=== PATIENT | male | born 1955 | race Caucasian/White ===

== ENCOUNTER 2016-04-23 08:31 | Inpatient (IN) | payer MEDICARE, OTHER ==
[~2016-04-23] VITALS: Ht 177.8 cm; Wt 71.7 kg
[~2016-04-23 08:31] MED LIST: ACET-868 GT; ALBU2.5V12 IH; ATOR80TA GT; BENA20TA2 GT; BISA10SU61 RC; CARV25TA GT; CLON0.1T GT; CLON0.5T GT; DEXL60CA3 GT; DOCU-170 GT; HYDR-3326 GT; HYDR100T27 GT; MAGN400O4 GT; MELA3TAB GT; NA P133E RC; ONDA4TAB5 GT; PRAS5TAB3 GT; SACC250C6 GT; TRAZ-144 GT
[2016-04-23] MEDS ORDERED: IV SET PRIMARY 1 EA INFUS.SET MC ONE (08:49)
[2016-04-23] MEDS ORDERED: IV NS 0.9% 500 ML IV ONE (08:49)
[2016-04-23 08:53] LABS: BASOPHILS # (AUTO) 0.1 /CMM (0.0-0.2); BASOPHILS % (AUTO) 0.9 % (0.0-2.0); DIFF TOTAL % 100 %; EOSINOPHILS # (AUTO) 0.1 /CMM (0.0-0.7); EOSINOPHILS % (AUTO) 0.8 % (0.0-6.0); HEMATOCRIT 40 % (39-51); HEMOGLOBIN 13.4 g/dL (13.5-17.5); LYMPHOCYTES # (AUTO) 1.9 /CMM (0.8-4.8); LYMPHOCYTES % (AUTO) 26.8 % (20.0-44.0); MEAN CORPUSCULAR HEMOGLOBIN 30 PG (26.0-33.0); MEAN CORPUSCULAR HGB CONC 34 g/dl (31.0-36.0); MEAN CORPUSCULAR VOLUME 90 fL (80-96); MONOCYTES # (AUTO) 0.7 /CMM (0.1-1.30); MONOCYTES % (AUTO) 9.2 % (2.0-12.0); NEUTROPHILS # (AUTO) 4.5 /CMM (1.8-8.9); NEUTROPHILS % (AUTO) 62.3 % (43.0-81.0); PLATELET COUNT (AUTO) 159 /CMM (150-450); RED BLOOD CELL COUNT(AUTO) 4.42 MIL/uL (4.5-6.0); WHITE BLOOD COUNT (AUTO) 7.2 K/uL (4.3-11.0)
[2016-04-23 09:00] LABS: KETONES,URINE NEGATIVE (NEGATIVE); LEUKOCYTE ESTERASE ,URINE NEGATIVE (NEGATIVE)
[2016-04-23] MEDS ORDERED: IV NS 0.9% 500 ML BAG IV ONE (09:00)
[2016-04-23 09:01] LABS: ADD UA MICROSCOPIC YES
[2016-04-23 09:02] LABS: ANION GAP 12 (5-14); CALCIUM, SERUM 8.6 mg/dL (8.5-10.1); CARBON DIOXIDE 28 mmol/L (21-32); CHLORIDE 104 mmol/L (98-107); CREATININE 1.8 mg/dL (0.6-1.3); GFR 39 mL/min (>60); GLUCOSE 96 mg/dL (74-106); POTASSIUM 4.1 mmol/L (3.5-5.1); SODIUM SERUM 140 mmol/L (136-145); UREA NITROGEN, BLOOD 23 mg/dL (7-18)
[2016-04-23 09:06] LABS: RBC,URINE 0-2 /HPF (0-2); WBC,URINE 0-2 /HPF (0-3)
[2016-04-23 09:08] LABS: ADD URINE CULTURE NO; INR 1.1 (0.87-1.13); MUCUS,URINE Few /LPF (None Seen); PROTHROMBIN TIME 11.9 SECS (9.5-12.7)
[2016-04-23 09:09] LABS: COARSE GRANULAR CASTS,URINE Few /LPF (None Seen); TROPONIN I < 0.017 ng/mL (0.00-0.056)
[2016-04-23 09:13] LABS: LACTIC ACID 1.5 mmol/L (0.4-2.0)
[2016-04-23 09:17] LABS: ALANINE AMINOTRANSFERASE 23 U/L (12-78); ALBUMIN 2.8 g/dL (3.4-5.0); ASPARTATE AMINOTRANSFERASE 18 U/L (15-37); BILIRUBIN,DIRECT 0.1 mg/dL (0.0-0.2); BILIRUBIN,TOTAL 0.4 mg/dL (0.2-1.0); INDIRECT BILIRUBIN 0.3 mg/dL (0.0-1.1)
[2016-04-23 09:18] LABS: THYROID STIMULATING HORMONE 0.423 uIU/mL (0.358-3.74)
[2016-04-23] MEDS ORDERED: CLON1PAT2 TD (10:14)
[2016-04-23] MEDS ORDERED: ACID1TAB12 GT (10:14)
[2016-04-23] MEDS ORDERED: NIFE30TA2 PO (10:14)
[2016-04-23] MEDS ORDERED: NA P133E RC (10:14)
[2016-04-23] MEDS ORDERED: ALEN70TA3 GT (10:14)
[2016-04-23] MEDS ORDERED: ALBU2.5V12 IH (10:14)
[2016-04-23] MEDS ORDERED: CALC-108 GT (10:14)
[2016-04-23] MEDS ORDERED: TRAM50TA2 GT (10:14)
[2016-04-23] MEDS ORDERED: CLOP75TA2 GT (10:14)
[2016-04-23] MEDS ORDERED: BACL10TA GT (10:14)
[2016-04-23] MEDS ORDERED: BISA10SU8 RC (10:14)
[2016-04-23] MEDS ORDERED: AMIN30LI4 GT (10:14)
[2016-04-23] MEDS ORDERED: DOCU50LI GT (10:14)
[2016-04-23] MEDS ORDERED: NUT.237L25 GT (10:14)
[2016-04-23] MEDS ORDERED: ACET-2605 GT (10:14)
[2016-04-23] MEDS ORDERED: ACET160S3 GT (10:14)
[2016-04-23] MEDS ORDERED: MULT-659 GT (10:14)
[2016-04-23] MEDS ORDERED: PANT40TA4 PO (10:14)
[2016-04-23] MEDS ORDERED: SENN8.6T6 GT (10:14)
[2016-04-23] MEDS ORDERED: ATEN50TA GT (10:14)
[2016-04-23] MEDS ORDERED: GEMF600T3 GT (10:14)
[2016-04-23] MEDS ORDERED: CITA20TA19 GT (10:14)
[2016-04-23] MEDS ORDERED: VALP250S14 GT (10:14)
[2016-04-23] MEDS ORDERED: AMLO5TAB2 GT (10:14)
[2016-04-23] MEDS ORDERED: IBUP-1481 GT (10:14)
[2016-04-23 12:30] VITALS: BP 118/68
[2016-04-23] MEDS ORDERED: MISCELLANEOUS MED 1 EA EA GT PRN (12:30)
[2016-04-23] MEDS ORDERED: ALBUTEROL FS 2.5 MG/0.5 ML VIAL.NEB IH PRN (12:30)
[2016-04-23] MEDS ORDERED: BISACODYL SUPP (10 MG) 10 MG/SUPP.RECT SUPP.RECT RC PRN (12:30)
[2016-04-23] MEDS ORDERED: NA PHOS,M-B/NA PHOS,DI-BA 1 EA ENEMA RC PRN (12:30)
[2016-04-23] MEDS ORDERED: ACETAMINOPHEN 650 MG/20.3 ML UDC GT PRN (12:30)
[2016-04-23] MEDS ORDERED: Medication Not On Formulary EA (Melatonin 6 MG) GT PRN (12:30)
[2016-04-23] MEDS ORDERED: Medication Not On Formulary EA (Ondansetron Hcl (Zofran) 4 MG) GT PRN (12:30)
[2016-04-23] MEDS ORDERED: IBUPROFEN 400 MG TABLET GT PRN (12:30)
[2016-04-23] MEDS ORDERED: MAGNESIUM HYDROXIDE 30 ML UDC GT PRN (12:30)
[2016-04-23 12:33] VITALS: BP 148/88
[2016-04-23] MEDS ORDERED: ONDANSETRON HCL/PF 4 MG/2 ML VIAL IVP PRN (13:00)
[2016-04-23] MEDS: VALPROIC ACID 250 MG/5 ML UDC GT SCH ×2 (13:46→22:10)
[2016-04-23] MEDS: PROSOURCE / PROSTAT (PYXIS) 30 ML UDC GT SCH ×3 (13:46→22:18)
[2016-04-23 14:40] VITALS: BP 146/81
[2016-04-23] MEDS ORDERED: IV SET PRIMARY PUMP SET 1 EA INFUS.SET MC ONE (15:27)
[2016-04-23] MEDS: IV NS 0.9% 1,000 ML IV PRN (15:48)
[2016-04-23 16:00] VITALS: BP 143/88
[2016-04-23] MEDS: GEMFIBROZIL 600 MG TABLET GT SCH (18:34)
[2016-04-23] MEDS: DOCUSATE SODIUM LIQ 100 MG/10 ML UDC GT SCH (18:34)
[2016-04-23] MEDS: ACIDOPHILUS/BULGARICUS 1 EACH TAB.CHEW GT SCH (18:34)
[2016-04-23] MEDS: FIBERSOURCE HN 1,000 ML BOTTLE GT PRN (18:34)
[2016-04-23 20:00] VITALS: BP 150/103
[2016-04-23] MEDS ORDERED: PANTOPRAZOLE 40 MG TABLET.DR PO SCH (21:00)
[2016-04-23] MEDS: hydrALAZINE HCL 50 MG TABLET GT SCH (22:10)
[2016-04-23] MEDS: PANTOPRAZOLE 40 MG/PACK PACK GT SCH (22:11)
[2016-04-23] MEDS: ENOXAPARIN SODIUM 40 MG/0.4 ML DISP.SYRIN SQ SCH (22:11)
[2016-04-23] MEDS: BACLOFEN (10 MG) 10 MG TABLET GT SCH (22:12)
[2016-04-23] MEDS: CARVEDILOL 12.5 MG TABLET GT SCH (22:14)
[2016-04-24 00:31] VITALS: BP 158/97
[2016-04-24 05:00] VITALS: BP 167/96
[2016-04-24] MEDS: VALPROIC ACID 250 MG/5 ML UDC GT SCH ×3 (05:00→21:39)
[2016-04-24] MEDS: hydrALAZINE HCL 50 MG TABLET GT SCH ×3 (05:00→21:37)
[2016-04-24 07:09] LABS: BASOPHILS % (AUTO) 0.4 % (0.0-2.0); DIFF TOTAL % 100 %; EOSINOPHILS % (AUTO) 0.7 % (0.0-6.0); HEMATOCRIT 37 % (39-51); HEMOGLOBIN 12.3 g/dL (13.5-17.5); LYMPHOCYTES # (AUTO) 1.8 /CMM (0.8-4.8); LYMPHOCYTES % (AUTO) 29.2 % (20.0-44.0); MEAN CORPUSCULAR HEMOGLOBIN 31 PG (26.0-33.0); MEAN CORPUSCULAR HGB CONC 33 g/dl (31.0-36.0); MEAN CORPUSCULAR VOLUME 92 fL (80-96); MONOCYTES # (AUTO) 0.7 /CMM (0.1-1.30); MONOCYTES % (AUTO) 11.6 % (2.0-12.0); NEUTROPHILS # (AUTO) 3.7 /CMM (1.8-8.9); NEUTROPHILS % (AUTO) 58.1 % (43.0-81.0); PLATELET COUNT (AUTO) 136 /CMM (150-450); RED BLOOD CELL COUNT(AUTO) 4.01 MIL/uL (4.5-6.0); WHITE BLOOD COUNT (AUTO) 6.3 K/uL (4.3-11.0)
[2016-04-24 07:38] LABS: CALCIUM, SERUM 8.3 mg/dL (8.5-10.1); CREATININE 1.6 mg/dL (0.6-1.3); PHOSPHORUS 2.5 mg/dL (2.5-4.9); POTASSIUM 3.7 mmol/L (3.5-5.1)
[2016-04-24 08:00] VITALS: BP 167/96
[2016-04-24] MEDS: BISACODYL SUPP (10 MG) 10 MG/SUPP.RECT SUPP.RECT RC SCH (09:00)
[2016-04-24] MEDS ORDERED: ATENOLOL 50 MG TABLET GT SCH (09:00)
[2016-04-24] MEDS ORDERED: AMLODIPINE BESYLATE 5 MG TABLET GT SCH (09:00)
[2016-04-24] MEDS ORDERED: Z GUARD REMEDY 2 OZ OINT TP PRN (10:00)
[2016-04-24] MEDS ORDERED: BISACODYL SUPP (10 MG) 10 MG/SUPP.RECT SUPP.RECT RC SCH (12:30)
[2016-04-24] MEDS: PROSOURCE / PROSTAT (PYXIS) 30 ML UDC GT SCH ×4 (13:00→21:00)
[2016-04-24 16:00] VITALS: BP 173/98
[2016-04-24] MEDS: DOCUSATE SODIUM LIQ 100 MG/10 ML UDC GT SCH ×2 (17:00→18:24)
[2016-04-24] MEDS: GEMFIBROZIL 600 MG TABLET GT SCH ×2 (17:00→18:19)
[2016-04-24] MEDS: ACIDOPHILUS/BULGARICUS 1 EACH TAB.CHEW GT SCH ×2 (17:00→18:18)
[2016-04-24] MEDS: CLONIDINE HCL 0.2MG/24H PTWK 1 EA PATCH TD SCH (18:15)
[2016-04-24] MEDS: NIFEdipine XL (30MG) 30 MG TAB PO SCH (18:17)
[2016-04-24] MEDS: MULTIVITAMINS W-MINERALS 1 TAB TABLET GT SCH (18:18)
[2016-04-24] MEDS: PANTOPRAZOLE 40 MG/PACK PACK GT SCH ×2 (18:18→21:39)
[2016-04-24] MEDS: CLOPIDOGREL BISULFATE 75 MG TABLET GT SCH (18:18)
[2016-04-24] MEDS: CITALOPRAM HYDROBROMIDE 20 MG TABLET GT SCH (18:18)
[2016-04-24] MEDS: SENNOSIDES 8.6 MG TABLET GT SCH (18:19)
[2016-04-24] MEDS: CARVEDILOL 12.5 MG TABLET GT SCH ×2 (18:20→21:39)
[2016-04-24] MEDS: CALCIUM CARB 250MG /VITAMIN D 1 UDTAB GT SCH (18:24)
[2016-04-24] MEDS: Z GUARD REMEDY 2 OZ OINT TP SCH (18:28)
[2016-04-24 21:30] VITALS: BP 142/86
[2016-04-24] MEDS: BACLOFEN (10 MG) 10 MG TABLET GT SCH (21:38)
[2016-04-24] MEDS: ENOXAPARIN SODIUM 40 MG/0.4 ML DISP.SYRIN SQ SCH (21:41)
[2016-04-25] VITALS: BP 167/99
[2016-04-25] MEDS: hydrALAZINE HCL 50 MG TABLET GT SCH ×3 (04:32→21:52)
[2016-04-25] MEDS: IV NS 0.9% 1,000 ML IV PRN ×2 (04:33→11:57)
[2016-04-25] MEDS: VALPROIC ACID 250 MG/5 ML UDC GT SCH ×3 (04:33→21:54)
[2016-04-25 07:02] LABS: BASOPHILS % (AUTO) 0.2 % (0.0-2.0); DIFF TOTAL % 100 %; EOSINOPHILS % (AUTO) 0.3 % (0.0-6.0); HEMATOCRIT 40 % (39-51); HEMOGLOBIN 13.5 g/dL (13.5-17.5); LYMPHOCYTES # (AUTO) 1.2 /CMM (0.8-4.8); LYMPHOCYTES % (AUTO) 10.8 % (20.0-44.0); MEAN CORPUSCULAR HEMOGLOBIN 31 PG (26.0-33.0); MEAN CORPUSCULAR HGB CONC 34 g/dl (31.0-36.0); MEAN CORPUSCULAR VOLUME 91 fL (80-96); MONOCYTES # (AUTO) 1.1 /CMM (0.1-1.30); MONOCYTES % (AUTO) 9.7 % (2.0-12.0); NEUTROPHILS # (AUTO) 8.6 /CMM (1.8-8.9); PLATELET COUNT (AUTO) 150 /CMM (150-450); RED BLOOD CELL COUNT(AUTO) 4.39 MIL/uL (4.5-6.0); WHITE BLOOD COUNT (AUTO) 10.9 K/uL (4.3-11.0)
[2016-04-25 07:30] LABS: INR 1.38 (0.87-1.13); PROTHROMBIN TIME 14.9 SECS (9.5-12.7)
[2016-04-25 08:09] LABS: IRON, SERUM 31 ug/dl (50-175); PERCENT SATURATION 8 % (14-33); TOTAL IRON BINDING CAPACITY 394 ug/dl (250-450)
[2016-04-25] MEDS: Z GUARD REMEDY 2 OZ OINT TP SCH (09:00)
[2016-04-25] MEDS: PROSOURCE / PROSTAT (PYXIS) 30 ML UDC GT SCH ×3 (09:00→21:56)
[2016-04-25] MEDS ORDERED: ALENDRONATE 70 MG TABLET GT SCH (09:00)
[2016-04-25] MEDS: MULTIVITAMINS W-MINERALS 1 TAB TABLET GT SCH (09:00)
[2016-04-25] MEDS: SENNOSIDES 8.6 MG TABLET GT SCH (09:00)
[2016-04-25] MEDS: PANTOPRAZOLE 40 MG/PACK PACK GT SCH ×2 (09:00→21:50)
[2016-04-25] MEDS: CALCIUM CARB 250MG /VITAMIN D 1 UDTAB GT SCH (09:00)
[2016-04-25] MEDS ORDERED: CLONIDINE HCL 0.2MG/24H PTWK 1 EA PATCH TD SCH (09:00)
[2016-04-25] MEDS: GEMFIBROZIL 600 MG TABLET GT SCH ×2 (09:00→18:00)
[2016-04-25] MEDS: CITALOPRAM HYDROBROMIDE 20 MG TABLET GT SCH (09:00)
[2016-04-25] MEDS: ACIDOPHILUS/BULGARICUS 1 EACH TAB.CHEW GT SCH ×2 (09:00→18:05)
[2016-04-25] MEDS: DOCUSATE SODIUM LIQ 100 MG/10 ML UDC GT SCH ×2 (09:00→18:01)
[2016-04-25] MEDS: CLONIDINE HCL 0.2MG/24H PTWK 1 EA PATCH TD SCH (09:22)
[2016-04-25] MEDS: NIFEdipine XL (30MG) 30 MG TAB PO SCH (09:23)
[2016-04-25] MEDS: CARVEDILOL 12.5 MG TABLET GT SCH ×2 (09:24→21:51)
[2016-04-25] MEDS: CLOPIDOGREL BISULFATE 75 MG TABLET GT SCH (09:25)
[2016-04-25 09:29] VITALS: BP 165/101
[2016-04-25] MEDS ORDERED: hydrALAZINE HCL IV 20 MG VIAL IV PRN (10:00)
[2016-04-25] MEDS ORDERED: ALBUTEROL FS 2.5 MG/3 ML VIAL.NEB NEB PRN (10:00)
[2016-04-25] MEDS ORDERED: IV SET PRIMARY PUMP SET 1 EA INFUS.SET MC ONE (11:45)
[2016-04-25 12:00] VITALS: BP 155/84
[2016-04-25] MEDS ORDERED: DIATR MEGLU/DIATRIZOATE SODIUM 30 ML BOTTLE (GASTROGRAPHIN) ONE (12:34)
[2016-04-25 16:00] VITALS: BP 168/93
[2016-04-25] MEDS ORDERED: FIBERSOURCE HN 1,000 ML BOTTLE GT PRN (17:30)
[2016-04-25] MEDS: CLONIDINE HCL 0.1 MG TABLET GT PRN (17:59)
[2016-04-25] MEDS: ALBUTEROL FS 2.5 MG/0.5 ML VIAL.NEB IH SCH (19:28)
[2016-04-25 20:00] VITALS: BP 142/82
[2016-04-25] MEDS: FIBERSOURCE HN 1,000 ML BOTTLE GT PRN (21:50)
[2016-04-25] MEDS: BACLOFEN (10 MG) 10 MG TABLET GT SCH (21:51)
[2016-04-25] MEDS: ENOXAPARIN SODIUM 40 MG/0.4 ML DISP.SYRIN SQ SCH (21:53)
[2016-04-26] VITALS: BP_SYST 101; BP_SYST 122; BP_DIAS 58; BP_DIAS 72
[2016-04-26] MEDS: ALBUTEROL FS 2.5 MG/0.5 ML VIAL.NEB IH SCH ×4 (00:47→20:10)
[2016-04-26 04:00] VITALS: BP_SYST 125; BP_SYST 132; BP_DIAS 73; BP_DIAS 91
[2016-04-26] MEDS: hydrALAZINE HCL 50 MG TABLET GT SCH ×3 (05:35→20:07)
[2016-04-26] MEDS: IV NS 0.9% 1,000 ML IV PRN ×2 (05:35→19:02)
[2016-04-26] MEDS: VALPROIC ACID 250 MG/5 ML UDC GT SCH ×3 (07:54→20:06)
[2016-04-26] MEDS: DOCUSATE SODIUM LIQ 100 MG/10 ML UDC GT SCH ×2 (07:57→19:10)
[2016-04-26 08:00] VITALS: BP_SYST 117; BP_SYST 128; BP_DIAS 69; BP_DIAS 71
[2016-04-26] MEDS: CLOPIDOGREL BISULFATE 75 MG TABLET GT SCH (08:01)
[2016-04-26] MEDS: MULTIVITAMINS W-MINERALS 1 TAB TABLET GT SCH (08:02)
[2016-04-26] MEDS: PANTOPRAZOLE 40 MG/PACK PACK GT SCH ×2 (08:02→20:08)
[2016-04-26] MEDS: NIFEdipine XL (30MG) 30 MG TAB PO SCH (08:02)
[2016-04-26] MEDS: GEMFIBROZIL 600 MG TABLET GT SCH ×2 (08:02→19:10)
[2016-04-26] MEDS: SENNOSIDES 8.6 MG TABLET GT SCH (08:03)
[2016-04-26] MEDS: CALCIUM CARB 250MG /VITAMIN D 1 UDTAB GT SCH (08:05)
[2016-04-26] MEDS: CITALOPRAM HYDROBROMIDE 20 MG TABLET GT SCH (08:05)
[2016-04-26] MEDS: ACIDOPHILUS/BULGARICUS 1 EACH TAB.CHEW GT SCH ×2 (08:05→19:13)
[2016-04-26] MEDS: CARVEDILOL 12.5 MG TABLET GT SCH ×2 (08:07→20:07)
[2016-04-26] MEDS: PROSOURCE / PROSTAT (PYXIS) 30 ML UDC GT SCH ×4 (08:26→23:32)
[2016-04-26 08:34] LABS: BASOPHILS % (AUTO) 0.3 % (0.0-2.0); DIFF TOTAL % 100 %; HEMATOCRIT 35 % (39-51); HEMOGLOBIN 11.7 g/dL (13.5-17.5); LYMPHOCYTES # (AUTO) 1.5 /CMM (0.8-4.8); LYMPHOCYTES % (AUTO) 9.3 % (20.0-44.0); MEAN CORPUSCULAR HEMOGLOBIN 31 PG (26.0-33.0); MEAN CORPUSCULAR HGB CONC 34 g/dl (31.0-36.0); MEAN CORPUSCULAR VOLUME 90 fL (80-96); MONOCYTES # (AUTO) 1.8 /CMM (0.1-1.30); NEUTROPHILS # (AUTO) 12.8 /CMM (1.8-8.9); NEUTROPHILS % (AUTO) 79.4 % (43.0-81.0); PLATELET COUNT (AUTO) 145 /CMM (150-450); RED BLOOD CELL COUNT(AUTO) 3.83 MIL/uL (4.5-6.0); WHITE BLOOD COUNT (AUTO) 16.1 K/uL (4.3-11.0)
[2016-04-26 09:26] LABS: CALCIUM, SERUM 7.6 mg/dL (8.5-10.1); CREATININE 1.6 mg/dL (0.6-1.3); PHOSPHORUS 1.6 mg/dL (2.5-4.9); POTASSIUM 3.9 mmol/L (3.5-5.1)
[2016-04-26] MEDS ORDERED: CLONIDINE HCL 0.2MG/24H PTWK 1 EA PATCH TD SCH (09:30)
[2016-04-26 12:00] VITALS: BP 123/75
[2016-04-26] MEDS: Z GUARD REMEDY 2 OZ OINT TP SCH (13:29)
[2016-04-26] MEDS ORDERED: NEUTRA PHOS 1 POWD.PACKET PO ONE (15:30)
[2016-04-26 16:00] VITALS: BP 157/85
[2016-04-26 20:00] VITALS: BP 136/76
[2016-04-26] MEDS: FIBERSOURCE HN 1,000 ML BOTTLE GT PRN (20:06)
[2016-04-26] MEDS: TRAMADOL HCL 50 MG TABLET GT PRN (20:07)
[2016-04-26] MEDS: ENOXAPARIN SODIUM 40 MG/0.4 ML DISP.SYRIN SQ SCH (20:09)
[2016-04-26] MEDS: BACLOFEN (10 MG) 10 MG TABLET GT SCH (23:32)
[2016-04-27] VITALS (9 sets, daily range): BP systolic 110–154; BP diastolic 62–85
[2016-04-27] MEDS: ALBUTEROL FS 2.5 MG/0.5 ML VIAL.NEB IH SCH ×4 (01:31→20:10)
[2016-04-27] MEDS: VALPROIC ACID 250 MG/5 ML UDC GT SCH ×3 (04:56→19:55)
[2016-04-27] MEDS: hydrALAZINE HCL 50 MG TABLET GT SCH ×3 (04:57→19:56)
[2016-04-27] MEDS: BISACODYL SUPP (10 MG) 10 MG/SUPP.RECT SUPP.RECT RC SCH (09:00)
[2016-04-27] MEDS: IV NS 0.9% 1,000 ML IV PRN (09:10)
[2016-04-27] MEDS: CALCIUM CARB 250MG /VITAMIN D 1 UDTAB GT SCH (09:10)
[2016-04-27] MEDS: PROSOURCE / PROSTAT (PYXIS) 30 ML UDC GT SCH ×4 (09:10→19:56)
[2016-04-27] MEDS: NIFEdipine XL (30MG) 30 MG TAB PO SCH (09:13)
[2016-04-27] MEDS: DOCUSATE SODIUM LIQ 100 MG/10 ML UDC GT SCH ×2 (09:13→16:32)
[2016-04-27] MEDS: CLOPIDOGREL BISULFATE 75 MG TABLET GT SCH (09:14)
[2016-04-27] MEDS: SENNOSIDES 8.6 MG TABLET GT SCH (09:14)
[2016-04-27] MEDS: GEMFIBROZIL 600 MG TABLET GT SCH ×2 (09:14→16:32)
[2016-04-27] MEDS: CARVEDILOL 12.5 MG TABLET GT SCH ×2 (09:14→19:56)
[2016-04-27] MEDS: CITALOPRAM HYDROBROMIDE 20 MG TABLET GT SCH (09:14)
[2016-04-27] MEDS: PANTOPRAZOLE 40 MG/PACK PACK GT SCH ×2 (09:14→19:56)
[2016-04-27] MEDS: MULTIVITAMINS W-MINERALS 1 TAB TABLET GT SCH (09:14)
[2016-04-27] MEDS: Z GUARD REMEDY 2 OZ OINT TP SCH (09:15)
[2016-04-27] MEDS: ACIDOPHILUS/BULGARICUS 1 EACH TAB.CHEW GT SCH ×2 (09:21→16:32)
[2016-04-27 18:04] LABS: ADD UA MICROSCOPIC NO; KETONES,URINE NEGATIVE (NEGATIVE); LEUKOCYTE ESTERASE ,URINE NEGATIVE (NEGATIVE)
[2016-04-27 18:19] LABS: BASOPHILS % (AUTO) 0.2 % (0.0-2.0); DIFF TOTAL % 100 %; EOSINOPHILS % (AUTO) 0.3 % (0.0-6.0); HEMATOCRIT 35 % (39-51); HEMOGLOBIN 11.7 g/dL (13.5-17.5); LYMPHOCYTES # (AUTO) 1.4 /CMM (0.8-4.8); LYMPHOCYTES % (AUTO) 12.2 % (20.0-44.0); MEAN CORPUSCULAR HEMOGLOBIN 31 PG (26.0-33.0); MEAN CORPUSCULAR HGB CONC 33 g/dl (31.0-36.0); MEAN CORPUSCULAR VOLUME 92 fL (80-96); MONOCYTES # (AUTO) 0.8 /CMM (0.1-1.30); MONOCYTES % (AUTO) 6.7 % (2.0-12.0); NEUTROPHILS # (AUTO) 9.4 /CMM (1.8-8.9); NEUTROPHILS % (AUTO) 80.6 % (43.0-81.0); PLATELET COUNT (AUTO) 155 /CMM (150-450); RED BLOOD CELL COUNT(AUTO) 3.84 MIL/uL (4.5-6.0); WHITE BLOOD COUNT (AUTO) 11.7 K/uL (4.3-11.0)
[2016-04-27 18:32] LABS: CALCIUM, SERUM 8.1 mg/dL (8.5-10.1); CREATININE 1.3 mg/dL (0.6-1.3); POTASSIUM 3.6 mmol/L (3.5-5.1)
[2016-04-27] MEDS: ENOXAPARIN SODIUM 40 MG/0.4 ML DISP.SYRIN SQ SCH (20:07)
[2016-04-27] MEDS: BACLOFEN (10 MG) 10 MG TABLET GT SCH (23:07)
[2016-04-28] VITALS: BP 120/72
[2016-04-28] MEDS: ALBUTEROL FS 2.5 MG/0.5 ML VIAL.NEB IH SCH ×3 (01:08→13:42)
[2016-04-28] MEDS ORDERED: IV SET PRIMARY PUMP SET 1 EA INFUS.SET MC ONE (01:45)
[2016-04-28] MEDS: IV NS 0.9% 1,000 ML IV PRN (01:51)
[2016-04-28 04:00] VITALS: BP 162/94
[2016-04-28] MEDS: VALPROIC ACID 250 MG/5 ML UDC GT SCH ×2 (04:15→12:47)
[2016-04-28] MEDS: hydrALAZINE HCL 50 MG TABLET GT SCH ×2 (04:15→12:47)
[2016-04-28] MEDS: TRAMADOL HCL 50 MG TABLET GT PRN (04:16)
[2016-04-28 06:56] LABS: DIFF TOTAL % 100 %; EOSINOPHILS % (AUTO) 0.4 % (0.0-6.0); HEMATOCRIT 35 % (39-51); HEMOGLOBIN 11.9 g/dL (13.5-17.5); LYMPHOCYTES # (AUTO) 1.4 /CMM (0.8-4.8); LYMPHOCYTES % (AUTO) 17.5 % (20.0-44.0); MEAN CORPUSCULAR HEMOGLOBIN 31 PG (26.0-33.0); MEAN CORPUSCULAR HGB CONC 34 g/dl (31.0-36.0); MEAN CORPUSCULAR VOLUME 91 fL (80-96); MONOCYTES # (AUTO) 0.8 /CMM (0.1-1.30); MONOCYTES % (AUTO) 10.6 % (2.0-12.0); NEUTROPHILS # (AUTO) 5.6 /CMM (1.8-8.9); NEUTROPHILS % (AUTO) 71.5 % (43.0-81.0); PLATELET COUNT (AUTO) 134 /CMM (150-450); RED BLOOD CELL COUNT(AUTO) 3.87 MIL/uL (4.5-6.0); WHITE BLOOD COUNT (AUTO) 7.9 K/uL (4.3-11.0)
[2016-04-28 07:06] LABS: CREATININE 1.3 mg/dL (0.6-1.3); POTASSIUM 3.4 mmol/L (3.5-5.1)
[2016-04-28 08:00] VITALS: BP 145/85
[2016-04-28 08:10] VITALS: BP 145/85
[2016-04-28] MEDS: DOCUSATE SODIUM LIQ 100 MG/10 ML UDC GT SCH (08:35)
[2016-04-28] MEDS: SENNOSIDES 8.6 MG TABLET GT SCH (08:35)
[2016-04-28] MEDS: CALCIUM CARB 250MG /VITAMIN D 1 UDTAB GT SCH (08:35)
[2016-04-28] MEDS: CLOPIDOGREL BISULFATE 75 MG TABLET GT SCH (08:35)
[2016-04-28] MEDS: CARVEDILOL 12.5 MG TABLET GT SCH (08:36)
[2016-04-28] MEDS: MULTIVITAMINS W-MINERALS 1 TAB TABLET GT SCH (08:36)
[2016-04-28] MEDS: PANTOPRAZOLE 40 MG/PACK PACK GT SCH (08:36)
[2016-04-28] MEDS: ACIDOPHILUS/BULGARICUS 1 EACH TAB.CHEW GT SCH (08:36)
[2016-04-28] MEDS: NIFEdipine XL (30MG) 30 MG TAB PO SCH (08:36)
[2016-04-28] MEDS: GEMFIBROZIL 600 MG TABLET GT SCH (08:36)
[2016-04-28] MEDS: PROSOURCE / PROSTAT (PYXIS) 30 ML UDC GT SCH ×2 (08:46→12:47)
[2016-04-28] MEDS: CITALOPRAM HYDROBROMIDE 20 MG TABLET GT SCH (08:46)
[2016-04-28] MEDS: Z GUARD REMEDY 2 OZ OINT TP SCH (08:47)
[2016-04-28 12:00] VITALS: BP 123/77
[2016-04-28] MEDS ORDERED: POTASSIUM CHLORIDE 20 MEQ POWDER PACKET PO SCH (13:30)
[2016-04-28] MEDS ORDERED: DIATR MEGLU/DIATRIZOATE SODIUM 30 ML BOTTLE (GASTROGRAPHIN) ONE (14:03)
[2016-04-28 15:17] VITALS: BP 154/94
[2016-04-28] MEDS: CLONIDINE HCL 0.1 MG TABLET GT PRN (15:17)
== END 2016-04-28 16:00 | DRG 100 ==
LOC: ER 08:32 → ICU 11:38 → TELE 15:00 → TELE1 04-25 11:37 → TELE-TD 04-25 12:14 → MEDSG1 04-28 11:42
PROVIDERS: ADMIT Internal Medicine; ATTEND Internal Medicine
PROC: 0D20XUZ Change Feeding Device in Upper Intestinal Tract, External Approach (ICD-10-PCS; principal; 2016-04-25)
DX: G40.909 Epilepsy, unspecified, not intractable, without status epilepticus (principal); N17.0 Acute kidney failure with tubular necrosis; E43 Unspecified severe protein-calorie malnutrition; R53.2 Functional quadriplegia; D68.59 Other primary thrombophilia; E87.0 Hyperosmolality and hypernatremia; I50.32 Chronic diastolic (congestive) heart failure; J98.11 Atelectasis; R13.10 Dysphagia, unspecified; N18.9 Chronic kidney disease, unspecified; E11.22 Type 2 diabetes mellitus with diabetic chronic kidney disease; D72.829 Elevated white blood cell count, unspecified; E86.9 Volume depletion, unspecified; Z86.73 Personal history of transient ischemic attack (TIA), and cerebral infarction without residual deficits; E88.09 Other disorders of plasma-protein metabolism, not elsewhere classified; M62.50 Muscle wasting and atrophy, not elsewhere classified, unspecified site; I11.0 Hypertensive heart disease with heart failure; Z93.1 Gastrostomy status
CPT/HCPCS: 36415; 70450-TC; 71010-TC; 74000-TC; 80048-TC; 80076-TC; 80164-TC; 81000-TC; 82140-TC; 83540-TC; 83605-TC; 83735-TC; 84100-TC; 84443-TC; 84484-TC; 85025-TC; 85610-TC; 85730-TC; 87040-TC; 87081-TC; 87086-TC; 92521; 94799-TC; A4606; J0360; J1650; J7030; J7040; Q9963; Z7610

== ENCOUNTER 2016-06-29 07:07 | Inpatient (IN) | payer MEDICARE, OTHER ==
[~2016-06-29] VITALS: Ht 165.1 cm; Wt 65.8 kg
[~2016-06-29 07:07] MED LIST changes: -ACET-868 GT; +ACET650S26 GT; +ACID1TAB12 GT; -ALBU2.5V12 IH; +ALBU2.5V13 IH; +ALEN70TA3 GT; +AMIN30LI4 GT; +AMLO5TAB2 GT; +ATEN50TA GT; -ATOR80TA GT; +BACL10TA GT; -BENA20TA2 GT; +BISA10SU8 RC; +CALC-108 GT; +CITA20TA19 GT; -CLON0.5T GT; +CLON1PAT2 TD; +CLOP75TA2 GT; -DEXL60CA3 GT; -DOCU-170 GT; +DOCU50LI GT; +GEMF600T3 GT; -HYDR-3326 GT; +MULT-659 GT; +NIFE30TA2 GT; +NUT.237L25 GT; +PANT40TA4 PO; -PRAS5TAB3 GT; -SACC250C6 GT; +SENN8.6T6 GT; +TRAM50TA2 GT; -TRAZ-144 GT; +VALP250S14 GT
[2016-06-29] MEDS ORDERED: IV SET PRIMARY PUMP SET 1 EA INFUS.SET MC ONE (07:25)
[2016-06-29] MEDS ORDERED: IV NS 0.9% 1,000 ML ONE (07:25)
[2016-06-29] MEDS ORDERED: ONDANSETRON HCL/PF 4 MG/2 ML VIAL ONE (07:25)
[2016-06-29] MEDS ORDERED: PANTOPRAZOLE 40 MG VIAL ONE (07:25)
[2016-06-29] MEDS ORDERED: IV NS 0.9% 1,000 ML BAG IV ONE (07:30)
[2016-06-29] MEDS ORDERED: ONDANSETRON HCL/PF 4 MG/2 ML VIAL IVP ONE (07:30)
[2016-06-29] MEDS ORDERED: PANTOPRAZOLE 40 MG VIAL IV ONE ×2 (07:30→10:00)
[2016-06-29 07:50] LABS: BASOPHILS % (AUTO) 0.2 % (0.0-2.0); DIFF TOTAL % 100 %; EOSINOPHILS % (AUTO) 0.3 % (0.0-6.0); HEMATOCRIT 40 % (39-51); HEMOGLOBIN 13.2 g/dL (13.5-17.5); LYMPHOCYTES # (AUTO) 1.7 /CMM (0.8-4.8); LYMPHOCYTES % (AUTO) 20.6 % (20.0-44.0); MEAN CORPUSCULAR HEMOGLOBIN 31 PG (26.0-33.0); MEAN CORPUSCULAR HGB CONC 33 g/dl (31.0-36.0); MEAN CORPUSCULAR VOLUME 92 fL (80-96); MONOCYTES # (AUTO) 0.7 /CMM (0.1-1.30); MONOCYTES % (AUTO) 9.2 % (2.0-12.0); NEUTROPHILS # (AUTO) 5.6 /CMM (1.8-8.9); NEUTROPHILS % (AUTO) 69.7 % (43.0-81.0); PLATELET COUNT (AUTO) 185 /CMM (150-450); RED BLOOD CELL COUNT(AUTO) 4.31 MIL/uL (4.5-6.0); WHITE BLOOD COUNT (AUTO) 8.1 K/uL (4.3-11.0)
[2016-06-29 08:00] LABS: ANION GAP 13 (5-14); CALCIUM, SERUM 8.9 mg/dL (8.5-10.1); CARBON DIOXIDE 28 mmol/L (21-32); CHLORIDE 109 mmol/L (98-107); CREATININE 1.7 mg/dL (0.6-1.3); GFR 42 mL/min (>60); GLUCOSE 102 mg/dL (74-106); POTASSIUM 4.1 mmol/L (3.5-5.1); SODIUM SERUM 146 mmol/L (136-145); UREA NITROGEN, BLOOD 28 mg/dL (7-18)
[2016-06-29 08:04] LABS: ALANINE AMINOTRANSFERASE 17 U/L (12-78); ALBUMIN 3.3 g/dL (3.4-5.0); ASPARTATE AMINOTRANSFERASE 15 U/L (15-37); BILIRUBIN,DIRECT 0.1 mg/dL (0.0-0.2); BILIRUBIN,TOTAL 0.3 mg/dL (0.2-1.0); INDIRECT BILIRUBIN 0.2 mg/dL (0.0-1.1); TOTAL PROTEIN, SERUM 7.6 g/dL (6.4-8.2)
[2016-06-29 08:05] LABS: TROPONIN I < 0.017 ng/mL (0.00-0.056)
[2016-06-29 08:09] LABS: INR 1.07 (0.87-1.13); PROTHROMBIN TIME 11.6 SECS (9.5-12.7)
[2016-06-29] MEDS ORDERED: ZINC220T GT (09:42)
[2016-06-29] MEDS ORDERED: ASCO500T9 GT (09:42)
[2016-06-29] MEDS ORDERED: ZOLP5TAB2 PO (09:42)
[2016-06-29] MEDS ORDERED: SACC250C6 PO (09:42)
[2016-06-29] MEDS ORDERED: hydrALAZINE HCL IV 20 MG VIAL ONE (10:39)
[2016-06-29 11:15] VITALS: BP 146/87
[2016-06-29 12:00] VITALS: BP 140/86
[2016-06-29] MEDS ORDERED: Medication Not On Formulary EA (Ondansetron Hcl (Zofran) 4 MG) GT PRN (14:00)
[2016-06-29] MEDS ORDERED: MAGNESIUM HYDROXIDE 30 ML UDC GT PRN (14:00)
[2016-06-29] MEDS ORDERED: HYDROCODONE/APAP 5/325MG 1 EACH TABLET PO PRN (14:00)
[2016-06-29] MEDS ORDERED: TRAMADOL HCL 50 MG TABLET GT PRN (14:00)
[2016-06-29] MEDS ORDERED: Medication Not On Formulary EA (Melatonin 9 MG) GT PRN (14:00)
[2016-06-29] MEDS ORDERED: Z GUARD REMEDY 2 OZ OINT TP PRN (14:00)
[2016-06-29] MEDS ORDERED: BISACODYL SUPP (10 MG) 10 MG/SUPP.RECT SUPP.RECT RC PRN (14:00)
[2016-06-29] MEDS ORDERED: ONDANSETRON HCL/PF 4 MG/2 ML VIAL IVP PRN (14:00)
[2016-06-29] MEDS ORDERED: NA PHOS,M-B/NA PHOS,DI-BA 1 EA ENEMA RC PRN (14:00)
[2016-06-29] MEDS ORDERED: MAG HYDROX/AL HYDROX/SIMETH 30 ML UDC PO PRN (14:00)
[2016-06-29] MEDS ORDERED: MAGNESIUM HYDROXIDE 30 ML UDC PO PRN (14:00)
[2016-06-29] MEDS ORDERED: ACETAMINOPHEN 650 MG/20.3 ML UDC GT PRN (14:00)
[2016-06-29] MEDS ORDERED: ZOLPIDEM TARTRATE 5 MG TABLET PO SCH (14:00)
[2016-06-29 16:00] VITALS: BP 160/100
[2016-06-29] MEDS ORDERED: ALBUTEROL FS 2.5 MG/3 ML VIAL.NEB NEB PRN (16:30)
[2016-06-29] MEDS: CLONIDINE HCL 0.1 MG TABLET GT PRN (16:57)
[2016-06-29] MEDS: GEMFIBROZIL 600 MG TABLET GT SCH (16:57)
[2016-06-29] MEDS ORDERED: SACCHAROMYCES BOULARDII 250 MG CAPSULE PO SCH (17:00)
[2016-06-29 20:00] VITALS: BP 159/97
[2016-06-29] MEDS ORDERED: RENAL NOVASOURCE 1,000 ML BOTTLE GT PRN (20:00)
[2016-06-29] MEDS: VALPROIC ACID 250 MG/5 ML UDC GT SCH (21:00)
[2016-06-29] MEDS: hydrALAZINE HCL 50 MG TABLET GT SCH (21:00)
[2016-06-29] MEDS: CARVEDILOL 12.5 MG TABLET PO SCH (21:00)
[2016-06-29] MEDS ORDERED: PANTOPRAZOLE 40 MG TABLET.DR PO SCH (21:00)
[2016-06-29] MEDS: PANTOPRAZOLE 40 MG VIAL IV SCH (21:50)
[2016-06-29 22:00] VITALS: BP 159/97
[2016-06-29] MEDS ORDERED: NIFEdipine XL (30MG) 30 MG TAB PO SCH (22:00)
[2016-06-29] MEDS ORDERED: BACLOFEN (10 MG) 10 MG TABLET GT SCH (22:00)
[2016-06-29] MEDS ORDERED: ZOLPIDEM TARTRATE 5 MG TABLET PO PRN (22:00)
[2016-06-30] VITALS: BP 154/81
[2016-06-30 04:00] VITALS: BP 152/86
[2016-06-30] MEDS: VALPROIC ACID 250 MG/5 ML UDC GT SCH ×2 (04:28→14:54)
[2016-06-30] MEDS: hydrALAZINE HCL 50 MG TABLET GT SCH ×2 (04:28→14:56)
[2016-06-30] MEDS: CLONIDINE HCL 0.1 MG TABLET GT PRN (07:13)
[2016-06-30] MEDS: ALBUTEROL FS 2.5 MG/3 ML VIAL.NEB NEB SCH ×3 (07:49→19:40)
[2016-06-30 08:00] VITALS: BP 172/101
[2016-06-30 08:00] LABS: BASOPHILS % (AUTO) 0.4 % (0.0-2.0); DIFF TOTAL % 100 %; EOSINOPHILS % (AUTO) 0.2 % (0.0-6.0); HEMATOCRIT 39 % (39-51); HEMOGLOBIN 12.4 g/dL (13.5-17.5); LYMPHOCYTES # (AUTO) 1.6 /CMM (0.8-4.8); LYMPHOCYTES % (AUTO) 19.4 % (20.0-44.0); MEAN CORPUSCULAR HEMOGLOBIN 30 PG (26.0-33.0); MEAN CORPUSCULAR HGB CONC 32 g/dl (31.0-36.0); MEAN CORPUSCULAR VOLUME 94 fL (80-96); MONOCYTES # (AUTO) 0.7 /CMM (0.1-1.30); NEUTROPHILS # (AUTO) 5.8 /CMM (1.8-8.9); PLATELET COUNT (AUTO) 188 /CMM (150-450); RED BLOOD CELL COUNT(AUTO) 4.12 MIL/uL (4.5-6.0); WHITE BLOOD COUNT (AUTO) 8.1 K/uL (4.3-11.0)
[2016-06-30 08:16] LABS: CALCIUM, SERUM 8.6 mg/dL (8.5-10.1); CREATININE 1.6 mg/dL (0.6-1.3); PHOSPHORUS 2.8 mg/dL (2.5-4.9)
[2016-06-30 09:00] VITALS: BP 149/85
[2016-06-30] MEDS ORDERED: ASCORBIC ACID 500 MG TABLET GT SCH (09:00)
[2016-06-30] MEDS ORDERED: MULTIVIT, IRON, MIN NO. 8, FA 1 TAB TABLET GT SCH (09:00)
[2016-06-30] MEDS ORDERED: SENNOSIDES 8.6 MG TABLET GT SCH (09:00)
[2016-06-30] MEDS ORDERED: CITALOPRAM HYDROBROMIDE 20 MG TABLET GT SCH (09:00)
[2016-06-30] MEDS ORDERED: ZINC SULFATE 220 MG CAPSULE GT SCH (09:00)
[2016-06-30] MEDS ORDERED: CALCIUM CARB 600MG /VIT D 1 EACH TABLET GT SCH (09:00)
[2016-06-30] MEDS ORDERED: ATENOLOL 50 MG TABLET GT SCH (09:00)
[2016-06-30] MEDS ORDERED: AMLODIPINE BESYLATE 5 MG TABLET GT SCH (09:00)
[2016-06-30] MEDS ORDERED: CLONIDINE HCL 0.2MG/24H PTWK 1 EA PATCH TD SCH (09:00)
[2016-06-30] MEDS: GEMFIBROZIL 600 MG TABLET GT SCH ×2 (09:08→16:55)
[2016-06-30] MEDS: LACTOBACILLUS RHAMNOSUS GG 1 EACH CAP.SPRINK PO SCH ×2 (09:10→16:55)
[2016-06-30] MEDS: PANTOPRAZOLE 40 MG VIAL IV SCH (09:11)
[2016-06-30] MEDS: CARVEDILOL 12.5 MG TABLET PO SCH (09:11)
[2016-06-30 16:00] VITALS: BP 115/49
[2016-07-04] MEDS ORDERED: ALENDRONATE 70 MG TABLET GT SCH (07:30)
== END 2016-06-30 20:25 | DRG 369 ==
LOC: ER 07:10 → TELE 10:06 → MED 06-30 10:25
PROVIDERS: ADMIT Family Medicine; ATTEND Family Medicine
PROC: 0D20XUZ Change Feeding Device in Upper Intestinal Tract, External Approach (ICD-10-PCS; 2016-06-29)
PROC: 0W3P8ZZ Control Bleeding in Gastrointestinal Tract, Via Natural or Artificial Opening Endoscopic (ICD-10-PCS; principal; 2016-06-29 10:00)
DX: K22.6 Gastro-esophageal laceration-hemorrhage syndrome (principal); E44.1 Mild protein-calorie malnutrition; K94.23 Gastrostomy malfunction; I69.351 Hemiplegia and hemiparesis following cerebral infarction affecting right dominant side; J98.11 Atelectasis; E11.22 Type 2 diabetes mellitus with diabetic chronic kidney disease; I12.9 Hypertensive chronic kidney disease with stage 1 through stage 4 chronic kidney disease, or unspecified chronic kidney disease; N18.9 Chronic kidney disease, unspecified; R13.10 Dysphagia, unspecified; M81.0 Age-related osteoporosis without current pathological fracture; E78.5 Hyperlipidemia, unspecified; Y83.3 Surgical operation with formation of external stoma as the cause of abnormal reaction of the patient, or of later complication, without mention of misadventure at the time of the procedure; Z87.891 Personal history of nicotine dependence
CPT/HCPCS: 36415; 71010-TC; 80048-TC; 80061-TC; 80076-TC; 82962-TC; 83690-TC; 83735-TC; 84100-TC; 84484-TC; 85025-TC; 85730-TC; 86850-TC; 87081-TC; A4606; A6403; C9113; J0360; J2405; J7030; Z7610

== ENCOUNTER 2016-09-18 18:25 | Inpatient (IN) | payer MEDICARE, OTHER ==
[~2016-09-18] VITALS: Ht 165.1 cm; Wt 69.9 kg
[~2016-09-18 18:25] MED LIST changes: -ACID1TAB12 GT; -AMIN30LI4 GT; +ASCO500T9 GT; -BISA10SU8 RC; +PANT40TA4 GT; -PANT40TA4 PO; +SACC250C6 GT; +ZINC220T GT; +ZOLP5TAB2 GT
[2016-09-18] MEDS ORDERED: IV NS 0.9% 500 ML BAG IV ONE (19:00)
[2016-09-18 19:01] LABS: BASOPHILS # (AUTO) 0.2 /CMM (0.0-0.2); BASOPHILS % (AUTO) 1.2 % (0.0-2.0); EOSINOPHILS % (AUTO) 0.3 % (0.0-6.0); HEMATOCRIT 38 % (39-51); HEMOGLOBIN 12.9 g/dL (13.5-17.5); LYMPHOCYTES # (AUTO) 2.7 /CMM (0.8-4.8); LYMPHOCYTES % (AUTO) 19.9 % (20.0-44.0); MEAN CORPUSCULAR HEMOGLOBIN 31 PG (26.0-33.0); MEAN CORPUSCULAR HGB CONC 34 g/dl (31.0-36.0); MEAN CORPUSCULAR VOLUME 92 fL (80-96); MONOCYTES # (AUTO) 1.1 /CMM (0.1-1.30); MONOCYTES % (AUTO) 8.1 % (2.0-12.0); NEUTROPHILS # (AUTO) 9.5 /CMM (1.8-8.9); NEUTROPHILS % (AUTO) 70.5 % (43.0-81.0); PLATELET COUNT (AUTO) 147 /CMM (150-450); RED BLOOD CELL COUNT(AUTO) 4.18 MIL/uL (4.5-6.0); WHITE BLOOD COUNT (AUTO) 13.5 K/uL (4.3-11.0)
[2016-09-18] MEDS ORDERED: IV SET PRIMARY PUMP SET 1 EA INFUS.SET MC ONE (19:03)
[2016-09-18] MEDS ORDERED: IV NS 0.9% 500 ML IV ONE (19:03)
[2016-09-18 19:07] LABS: CALCIUM, SERUM 8.6 mg/dL (8.5-10.1); CARBON DIOXIDE 30 mmol/L (21-32); CHLORIDE 104 mmol/L (98-107); CREATININE 1.7 mg/dL (0.6-1.3); GLUCOSE 100 mg/dL (74-106); POTASSIUM 3.2 mmol/L (3.5-5.1); SODIUM SERUM 142 mmol/L (136-145); UREA NITROGEN, BLOOD 19 mg/dL (7-18)
[2016-09-18 19:09] LABS: INR 1.02 (0.87-1.13); PROTHROMBIN TIME 10.6 SECS (9.5-12.7)
[2016-09-18 19:13] LABS: ALANINE AMINOTRANSFERASE 13 U/L (12-78); ALBUMIN 2.9 g/dL (3.4-5.0); ALKALINE PHOSPHATASE 69 U/L (46-116); ASPARTATE AMINOTRANSFERASE 17 U/L (15-37); BILIRUBIN,DIRECT 0.1 mg/dL (0.0-0.2); BILIRUBIN,TOTAL 0.3 mg/dL (0.2-1.0); TOTAL PROTEIN, SERUM 6.6 g/dL (6.4-8.2)
[2016-09-18 19:15] LABS: TROPONIN I < 0.017 ng/mL (0.00-0.056)
[2016-09-18] MEDS ORDERED: ACET-2605 GT (19:26)
[2016-09-18] MEDS ORDERED: AMIN30LI4 GT (19:26)
[2016-09-18] MEDS ORDERED: ACET650S26 GT (19:26)
[2016-09-18] MEDS ORDERED: IPRA0.2S9 IH ×2 (19:26)
[2016-09-18] MEDS ORDERED: ONDANSETRON HCL/PF 4 MG/2 ML VIAL ONE (19:29)
[2016-09-18] MEDS ORDERED: ONDANSETRON HCL/PF - ER 4 MG/2 ML VIAL IV ONE (19:30)
[2016-09-18 20:31] LABS: APPEARANCE,URINE Clear (CLEAR); BILIRUBIN,URINE Negative (NEGATIVE); BLOOD, URINE Trace-intact Ery/uL (NEGATIVE); COLOR,URINE Yellow (YELLOW); KETONES,URINE Negative (NEGATIVE); LEUKOCYTE ESTERASE ,URINE Negative (NEGATIVE); NITRITE, URINE Negative (NEGATIVE); PROTEIN,URINE 100 mg/dl (NEGATIVE); UGLUCOSE Negative (NEGATIVE); UROBILINOGEN,URINE 0.2 EU/dL (0.2)
[2016-09-18 20:41] LABS: BACTERIA,URINE None seen /HPF (None Seen); SQUAMOUS EPITHELIAL CELL,UR Few /HPF (None Seen); WBC,URINE 0-2 /HPF (0-3)
[2016-09-18 21:11] LABS: ACETAMINOPHEN < 2 ug/ml (10-30); SALICYLATE < 2.8 mg/dL (2.8-20.0)
[2016-09-18 21:19] LABS: SERUM AMMONIA 456 umol/L (11-32)
[2016-09-18 21:24] LABS: THYROID STIMULATING HORMONE 0.788 uIU/mL (0.358-3.74)
[2016-09-18 21:30] VITALS: BP 108/73
[2016-09-18] MEDS ORDERED: LACTULOSE 10 G/15 ML UDC (PYXIS) ONE (22:11)
[2016-09-18] MEDS: LACTULOSE 10 G/15 ML UDC (PYXIS) GT SCH (22:25)
[2016-09-18] MEDS ORDERED: ONDANSETRON HCL/PF 4 MG/2 ML VIAL IVP PRN (22:30)
[2016-09-18] MEDS ORDERED: MAG HYDROX/AL HYDROX/SIMETH 30 ML UDC GT PRN (22:30)
[2016-09-19] VITALS (19 sets, daily range): BP systolic 105–148; BP diastolic 65–94
[2016-09-19] MEDS ORDERED: TRAMADOL HCL 50 MG TABLET GT PRN (01:00)
[2016-09-19] MEDS ORDERED: CLONIDINE HCL 0.1 MG TABLET GT PRN (01:00)
[2016-09-19] MEDS ORDERED: Sodium Chloride 154 MEQ in IV 10% DEXTROSE 1,000 ML IV PRN (02:00)
[2016-09-19] MEDS ORDERED: IV 10% DEXTROSE 1,000 ML IV ONE (02:00)
[2016-09-19] MEDS ORDERED: POTASSIUM CHLORIDE 20 MEQ POWDER PACKET ONE (02:20)
[2016-09-19] MEDS ORDERED: IV SET PRIMARY PUMP SET 1 EA INFUS.SET MC ONE (02:21)
[2016-09-19] MEDS ORDERED: IV 10% DEXTROSE 1,000 ML IV PRN (02:30)
[2016-09-19] MEDS: LACTULOSE UDC 200 G in SODIUM CHLORIDE IRRIG SOLUTION 400 ML IR SCH ×2 (02:30→06:35)
[2016-09-19] MEDS ORDERED: POTASSIUM CHLORIDE 20 MEQ POWDER PACKET GT ONE (02:30)
[2016-09-19] MEDS ORDERED: DEXTROSE 10% IN WATER 250 ML BAG IV PRN (02:30)
[2016-09-19] MEDS ORDERED: LACTULOSE 10 G/15 ML UDC (PYXIS) ONE ×4 (02:43→03:28)
[2016-09-19 02:56] LABS: URIC ACID 5.2 mg/dL (2.6-7.2)
[2016-09-19] MEDS ORDERED: IPRATROPIUM NEB FS 0.5 MG/2.5 ML AMPUL.NEB ONE (03:14)
[2016-09-19] MEDS ORDERED: ALBUTEROL FS 2.5 MG/0.5 ML VIAL.NEB ONE (03:14)
[2016-09-19] MEDS: IPRATROPIUM NEB FS 0.5 MG/2.5 ML AMPUL.NEB IH SCH ×4 (03:20→19:30)
[2016-09-19] MEDS: ALBUTEROL FS 2.5 MG/0.5 ML VIAL.NEB IH SCH ×4 (03:20→19:30)
[2016-09-19] MEDS: LACTULOSE 10 G/15 ML UDC (PYXIS) GT SCH ×4 (04:13→21:25)
[2016-09-19] MEDS ORDERED: NEOMYCIN SULFATE (500MG) 500 MG TABLET PO SCH (06:00)
[2016-09-19] MEDS ORDERED: NEOMYCIN SULFATE (500MG) 500 MG TABLET ONE (06:02)
[2016-09-19] MEDS ORDERED: ACETAMINOPHEN 650 MG/20.3 ML UDC GT PRN (07:00)
[2016-09-19 07:26] LABS: BASOPHILS % (AUTO) 0.2 % (0.0-2.0); HEMATOCRIT 38 % (39-51); LYMPHOCYTES # (AUTO) 1.5 /CMM (0.8-4.8); LYMPHOCYTES % (AUTO) 13.7 % (20.0-44.0); MEAN CORPUSCULAR HEMOGLOBIN 31 PG (26.0-33.0); MEAN CORPUSCULAR HGB CONC 34 g/dl (31.0-36.0); MEAN CORPUSCULAR VOLUME 92 fL (80-96); MONOCYTES # (AUTO) 1.1 /CMM (0.1-1.30); NEUTROPHILS # (AUTO) 8.3 /CMM (1.8-8.9); NEUTROPHILS % (AUTO) 76.1 % (43.0-81.0); PLATELET COUNT (AUTO) 129 /CMM (150-450); RDW COEFFICIENT OF VARIATION 14.8 (11.5-15.0); RED BLOOD CELL COUNT(AUTO) 4.17 MIL/uL (4.5-6.0); WHITE BLOOD COUNT (AUTO) 10.9 K/uL (4.3-11.0)
[2016-09-19 07:54] LABS: CALCIUM, SERUM 8.4 mg/dL (8.5-10.1); CREATININE 1.5 mg/dL (0.6-1.3); MAGNESIUM 2.5 mg/dL (1.8-2.4); PHOSPHORUS 3.6 mg/dL (2.5-4.9); POTASSIUM 3.7 mmol/L (3.5-5.1)
[2016-09-19] MEDS: hydrALAZINE HCL 50 MG TABLET GT SCH ×3 (09:00→21:25)
[2016-09-19] MEDS ORDERED: LORAZEPAM INJ 2 MG/ML VIAL IVP PRN (09:00)
[2016-09-19] MEDS: AMLODIPINE BESYLATE 5 MG TABLET GT SCH (09:00)
[2016-09-19] MEDS ORDERED: ATENOLOL 50 MG TABLET GT SCH (09:00)
[2016-09-19] MEDS ORDERED: CARVEDILOL 12.5 MG TABLET GT SCH (09:00)
[2016-09-19] MEDS: CLOPIDOGREL BISULFATE 75 MG TABLET GT SCH (09:31)
[2016-09-19] MEDS: MULTIVIT, IRON, MIN NO. 8, FA 1 TAB TABLET GT SCH (09:32)
[2016-09-19] MEDS: CALCIUM CARB 600MG /VIT D 1 EACH TABLET GT SCH (09:33)
[2016-09-19] MEDS: GEMFIBROZIL 600 MG TABLET GT SCH ×2 (09:33→16:24)
[2016-09-19] MEDS: Thiamine 100 MG in IV D5W 50 ML IV SCH (10:47)
[2016-09-19] MEDS ORDERED: SECONDARY IV SET 1 EA INFUS.SET MC ONE (10:47)
[2016-09-19] MEDS: Folic acid 1 MG in IV D5W 50 ML IV SCH (11:31)
[2016-09-19] MEDS: Z GUARD REMEDY 2 OZ OINT TP PRN ×2 (11:41→14:29)
[2016-09-19] MEDS: IV D5/ 0.9% NACL 1,000 ML IV PRN (12:10)
[2016-09-19] MEDS: NEOMYCIN SULFATE (500MG) 500 MG TABLET GT SCH ×2 (13:10→17:40)
[2016-09-20] VITALS (23 sets, daily range): BP systolic 106–152; BP diastolic 65–100
[2016-09-20] MEDS: IV D5/ 0.9% NACL 1,000 ML IV PRN ×2 (00:39→16:02)
[2016-09-20] MEDS: IPRATROPIUM NEB FS 0.5 MG/2.5 ML AMPUL.NEB IH SCH ×4 (01:30→19:30)
[2016-09-20] MEDS: ALBUTEROL FS 2.5 MG/0.5 ML VIAL.NEB IH SCH ×4 (01:30→19:30)
[2016-09-20] MEDS: LACTULOSE 10 G/15 ML UDC (PYXIS) GT SCH ×2 (03:24→09:11)
[2016-09-20] MEDS: NEOMYCIN SULFATE (500MG) 500 MG TABLET GT SCH ×2 (03:25)
[2016-09-20 05:25] LABS: BASOPHILS % (AUTO) 0.4 % (0.0-2.0); EOSINOPHILS # (AUTO) 0.1 /CMM (0.0-0.7); EOSINOPHILS % (AUTO) 0.8 % (0.0-6.0); HEMATOCRIT 36 % (39-51); HEMOGLOBIN 12.5 g/dL (13.5-17.5); LYMPHOCYTES # (AUTO) 1.8 /CMM (0.8-4.8); LYMPHOCYTES % (AUTO) 25.8 % (20.0-44.0); MEAN CORPUSCULAR HEMOGLOBIN 31 PG (26.0-33.0); MEAN CORPUSCULAR HGB CONC 35 g/dl (31.0-36.0); MEAN CORPUSCULAR VOLUME 91 fL (80-96); MONOCYTES # (AUTO) 0.7 /CMM (0.1-1.30); MONOCYTES % (AUTO) 10.6 % (2.0-12.0); NEUTROPHILS # (AUTO) 4.4 /CMM (1.8-8.9); NEUTROPHILS % (AUTO) 62.4 % (43.0-81.0); PLATELET COUNT (AUTO) 127 /CMM (150-450); RDW COEFFICIENT OF VARIATION 14.3 (11.5-15.0); RED BLOOD CELL COUNT(AUTO) 3.99 MIL/uL (4.5-6.0)
[2016-09-20 05:37] LABS: CREATININE 1.4 mg/dL (0.6-1.3); MAGNESIUM 2.3 mg/dL (1.8-2.4); PHOSPHORUS 2.9 mg/dL (2.5-4.9); POTASSIUM 3.5 mmol/L (3.5-5.1)
[2016-09-20] MEDS: AMLODIPINE BESYLATE 5 MG TABLET GT SCH (09:00)
[2016-09-20] MEDS ORDERED: PANTOPRAZOLE 40 MG VIAL IV SCH (09:00)
[2016-09-20] MEDS: GEMFIBROZIL 600 MG TABLET GT SCH ×2 (09:00→16:02)
[2016-09-20] MEDS: MULTIVIT, IRON, MIN NO. 8, FA 1 TAB TABLET GT SCH (09:00)
[2016-09-20] MEDS ORDERED: NITROGLYCERIN PACKET 1 GM PACKET TOP PRN (09:00)
[2016-09-20] MEDS: Z GUARD REMEDY 2 OZ OINT TP PRN ×2 (09:00→14:23)
[2016-09-20] MEDS: CLOPIDOGREL BISULFATE 75 MG TABLET GT SCH (09:00)
[2016-09-20] MEDS: CALCIUM CARB 600MG /VIT D 1 EACH TABLET GT SCH (09:00)
[2016-09-20] MEDS: hydrALAZINE HCL 50 MG TABLET GT SCH ×4 (09:00→20:05)
[2016-09-20] MEDS: Folic acid 1 MG in IV D5W 50 ML IV SCH (10:01)
[2016-09-20] MEDS ORDERED: NITROGLYCERIN 30 GM TUBE TP PRN (10:30)
[2016-09-20] MEDS: Thiamine 100 MG in IV D5W 50 ML IV SCH (11:20)
[2016-09-20] MEDS ORDERED: RENAL NOVASOURCE 1,000 ML BOTTLE GT PRN (14:30)
[2016-09-21] VITALS: BP 131/79
[2016-09-21] MEDS: ALBUTEROL FS 2.5 MG/0.5 ML VIAL.NEB IH SCH ×2 (02:13→07:35)
[2016-09-21] MEDS: IPRATROPIUM NEB FS 0.5 MG/2.5 ML AMPUL.NEB IH SCH ×2 (02:14→07:35)
[2016-09-21 04:00] VITALS: BP 151/86
[2016-09-21 07:02] LABS: BASOPHILS % (AUTO) 0.4 % (0.0-2.0); EOSINOPHILS # (AUTO) 0.1 /CMM (0.0-0.7); HEMATOCRIT 37 % (39-51); HEMOGLOBIN 12.3 g/dL (13.5-17.5); LYMPHOCYTES # (AUTO) 1.5 /CMM (0.8-4.8); LYMPHOCYTES % (AUTO) 17.5 % (20.0-44.0); MEAN CORPUSCULAR HEMOGLOBIN 31 PG (26.0-33.0); MEAN CORPUSCULAR HGB CONC 34 g/dl (31.0-36.0); MEAN CORPUSCULAR VOLUME 91 fL (80-96); MONOCYTES # (AUTO) 0.8 /CMM (0.1-1.30); MONOCYTES % (AUTO) 9.9 % (2.0-12.0); NEUTROPHILS % (AUTO) 71.2 % (43.0-81.0); PLATELET COUNT (AUTO) 135 /CMM (150-450); RDW COEFFICIENT OF VARIATION 14.3 (11.5-15.0); RED BLOOD CELL COUNT(AUTO) 4.01 MIL/uL (4.5-6.0); WHITE BLOOD COUNT (AUTO) 8.4 K/uL (4.3-11.0)
[2016-09-21 07:21] LABS: CALCIUM, SERUM 8.1 mg/dL (8.5-10.1); CREATININE 1.2 mg/dL (0.6-1.3); MAGNESIUM 2.1 mg/dL (1.8-2.4); PHOSPHORUS 2.2 mg/dL (2.5-4.9); POTASSIUM 3.4 mmol/L (3.5-5.1)
[2016-09-21 08:00] VITALS: BP 151/83
[2016-09-21] MEDS: IV D5/ 0.9% NACL 1,000 ML IV PRN (08:31)
[2016-09-21] MEDS: MULTIVIT, IRON, MIN NO. 8, FA 1 TAB TABLET GT SCH (08:32)
[2016-09-21] MEDS: CALCIUM CARB 600MG /VIT D 1 EACH TABLET GT SCH (08:32)
[2016-09-21] MEDS: CLOPIDOGREL BISULFATE 75 MG TABLET GT SCH (08:32)
[2016-09-21] MEDS: AMLODIPINE BESYLATE 5 MG TABLET GT SCH (08:33)
[2016-09-21] MEDS: GEMFIBROZIL 600 MG TABLET GT SCH (08:33)
[2016-09-21] MEDS: hydrALAZINE HCL 50 MG TABLET GT SCH ×2 (08:33→12:23)
[2016-09-21] MEDS ORDERED: PANTOPRAZOLE 40 MG/PACK PACK GT SCH (09:00)
[2016-09-21] MEDS ORDERED: LORA1TAB82 PO (09:57)
[2016-09-21] MEDS ORDERED: POTASSIUM CHLORIDE 20 MEQ TAB.PRT.SR PO ONE (10:00)
[2016-09-21] MEDS ORDERED: NEUTRA PHOS 1 POWD.PACKET PO ONE (10:00)
[2016-09-21] MEDS ORDERED: SECONDARY IV SET 1 EA INFUS.SET MC ONE (10:04)
[2016-09-21] MEDS: Folic acid 1 MG in IV D5W 50 ML IV SCH (10:28)
[2016-09-21] MEDS: Thiamine 100 MG in IV D5W 50 ML IV SCH (11:08)
[2016-09-21 12:00] VITALS: BP 139/87
[2016-09-21 12:23] VITALS: BP 139/87
[2016-09-21] MEDS ORDERED: OXCARBAZEPINE 150 MG TABLET PO SCH (12:30)
[2016-09-21] MEDS ORDERED: OXCA300T4 PO (15:56)
[2016-09-22] MEDS ORDERED: THIAMINE HCL 100 MG TABLET PO SCH (09:00)
[2016-09-22] MEDS ORDERED: FOLIC ACID 1 MG TABLET PO SCH (09:00)
[2016-09-23] MEDS ORDERED: CLONIDINE HCL 0.2MG/24H PTWK 1 EA PATCH TD SCH (09:00)
== END 2016-09-21 13:04 | DRG 91 ==
LOC: ER 18:27 → TELE 21:00 → ICU 09-19 09:15 → TELE1 09-20 18:07
PROVIDERS: ADMIT Nurse Practitioner Acute Care; ATTEND Nurse Practitioner Acute Care
PROC: 05H633Z Insertion of Infusion Device into Left Subclavian Vein, Percutaneous Approach (ICD-10-PCS; 2016-09-19)
PROC: 0D20XUZ Change Feeding Device in Upper Intestinal Tract, External Approach (ICD-10-PCS; principal; 2016-09-20)
DX: G92 Toxic encephalopathy (principal); R53.2 Functional quadriplegia; N17.0 Acute kidney failure with tubular necrosis; D68.59 Other primary thrombophilia; E44.0 Moderate protein-calorie malnutrition; E72.20 Disorder of urea cycle metabolism, unspecified; I69.351 Hemiplegia and hemiparesis following cerebral infarction affecting right dominant side; Z43.1 Encounter for attention to gastrostomy; I13.0 Hypertensive heart and chronic kidney disease with heart failure and stage 1 through stage 4 chronic kidney disease, or unspecified chronic kidney disease; I50.20 Unspecified systolic (congestive) heart failure; G40.909 Epilepsy, unspecified, not intractable, without status epilepticus; M81.0 Age-related osteoporosis without current pathological fracture; N18.2 Chronic kidney disease, stage 2 (mild); Z79.899 Other long term (current) drug therapy; Z87.891 Personal history of nicotine dependence; E87.6 Hypokalemia; E78.5 Hyperlipidemia, unspecified; E11.22 Type 2 diabetes mellitus with diabetic chronic kidney disease; I25.2 Old myocardial infarction; R13.10 Dysphagia, unspecified; E88.09 Other disorders of plasma-protein metabolism, not elsewhere classified; T42.6X5A Adverse effect of other antiepileptic and sedative-hypnotic drugs, initial encounter; Y92.129 Unspecified place in nursing home as the place of occurrence of the external cause; Z68.25 Body mass index [BMI] 25.0-25.9, adult
CPT/HCPCS: 36415; 70450-TC; 71010-TC; 76700-TC; 80048-TC; 80061-TC; 80076-TC; 80164-TC; 81000-TC; 82140-TC; 83605-TC; 83735-TC; 83880; 84100-TC; 84443-TC; 84484-TC; 84550-TC; 85025-TC; 85730-TC; 87040-TC; 87081-TC; 87086-TC; 93307-TC; 95819-TC; A4217; A4606; A6253; C9113; G0480; G6039-TC; J2060; J2405; J3411; J3490; J7040; J7042; J7060; Z7610

== ENCOUNTER 2018-04-01 18:37 | Inpatient (IN) | payer MEDICARE, OTHER ==
[~2018-04-01] VITALS: Ht 177.8 cm; Wt 67.6 kg
[~2018-04-01 18:37] MED LIST changes: -AMLO5TAB2 GT; +AMLO5TAB7 GT; -ASCO500T9 GT; -CALC-108 GT; +CALC-261 GT; +CLOP75TA15 GT; -CLOP75TA2 GT; -DOCU50LI GT; -GEMF600T3 GT; +GEMF600T5 GT; +IPRA0.2S9 IH; +LORA-259 PO; +MAGN400O21 GT; -MAGN400O4 GT; -NA P133E RC; -NIFE30TA2 GT; +OXCA300T4 PO; +SACC250C GT; -SACC250C6 GT; +SENN-168 GT; -SENN8.6T6 GT; -TRAM50TA2 GT; -VALP250S14 GT; -ZINC220T GT; -ZOLP5TAB2 GT
--- NOTE | 2018-04-01 18:45 | NUR ---
PT VERONICA PA. COMPLAINING OF SOB. AWAITING MD SHELL. PT AOX0 RESPONSIVE TO PAIN. NON AMBULATORY.
--- NOTE | 2018-04-01 19:13 | NUR ---
RECEIVED REPORT FROM MARCIN GUADALUPE FOR DIANA. PT RESTING COMFORTABLY IN BED. AROUSABLE TO TOUCH. AT BEDSIDE. WILL CONTINUE TO MONITOR.
[2018-04-01 19:16] LABS: BASOPHILS # (AUTO) 0.1 /CMM (0.0-0.2); BASOPHILS % (AUTO) 0.4 % (0.0-2.0); EOSINOPHILS % (AUTO) 2.9 % (0.0-6.0); HEMATOCRIT 36 % (39-51); HEMOGLOBIN 11.5 g/dL (13.5-17.5); LYMPHOCYTES # (AUTO) 0.9 /CMM (0.8-4.8); LYMPHOCYTES % (AUTO) 6.5 % (20.0-44.0); MEAN CORPUSCULAR HGB CONC 32 g/dl (31.0-36.0); MEAN CORPUSCULAR VOLUME 90 fL (80-96); MONOCYTES # (AUTO) 0.8 /CMM (0.1-1.30); MONOCYTES % (AUTO) 6.2 % (2.0-12.0); NEUTROPHILS # (AUTO) 11.6 /CMM (1.8-8.9); PLATELET COUNT (AUTO) 344 /CMM (150-450); RED BLOOD CELL COUNT(AUTO) 3.96 MIL/uL (4.5-6.0); WHITE BLOOD COUNT (AUTO) 13.8 K/uL (4.3-11.0)
--- NOTE | 2018-04-01 19:23 | NUR ---
RADIOLOGY AT BEDSIDE FOR CXR
[2018-04-01 19:27] LABS: CALCIUM, SERUM 8.7 mg/dL (8.5-10.1); CARBON DIOXIDE 29 mmol/L (21-32); CHLORIDE 102 mmol/L (98-107); CREATININE 1.2 mg/dL (0.6-1.3); GLUCOSE 93 mg/dL (74-106); POTASSIUM 4.1 mmol/L (3.5-5.1); SODIUM SERUM 139 mmol/L (136-145); UREA NITROGEN, BLOOD 16 mg/dL (7-18)
[2018-04-01 19:33] LABS: ALANINE AMINOTRANSFERASE 28 U/L (12-78); ALBUMIN 2.4 g/dL (3.4-5.0); ALKALINE PHOSPHATASE 108 U/L (46-116); ASPARTATE AMINOTRANSFERASE 21 U/L (15-37); BILIRUBIN,DIRECT 0.1 mg/dL (0.0-0.2); BILIRUBIN,TOTAL 0.3 mg/dL (0.2-1.0)
--- NOTE | 2018-04-01 19:34 | NUR ---
URINE COLLECTED AND SENT TO LAB
[2018-04-01 19:51] LABS: APPEARANCE,URINE Clear (CLEAR); BILIRUBIN,URINE Negative (NEGATIVE); BLOOD, URINE Negative Ery/uL (NEGATIVE); COLOR,URINE Yellow (YELLOW); KETONES,URINE Negative (NEGATIVE); LEUKOCYTE ESTERASE ,URINE Negative (NEGATIVE); NITRITE, URINE Negative (NEGATIVE); PROTEIN,URINE 30 mg/dl (NEGATIVE); UGLUCOSE Negative (NEGATIVE); UROBILINOGEN,URINE 0.2 EU/dL (0.2)
[2018-04-01] MEDS ORDERED: PIPERACILLIN /TAZOBACTAM 3.375 G in IV D5W 50 ML IV ONE (20:00)
[2018-04-01] MEDS ORDERED: PIPERACILLIN /TAZOBACTAM 3.375 G VIAL IV ONE (20:04)
[2018-04-01 20:14] LABS: SERUM AMMONIA 42 umol/L (11-32)
--- NOTE | 2018-04-01 20:25 | NUR ---
PT BROUGHT BY RADIOLOGY FOR CT
[2018-04-01 20:26] LABS: THYROID STIMULATING HORMONE 1.093 uIU/mL (0.358-3.74)
--- NOTE | 2018-04-01 21:05 | NUR ---
GAVE REPORT TO GABBIE FOR DIANA
--- NOTE | 2018-04-01 21:30 | NUR ---
GINO CONTACT CENTER DIRECTOR NOTE: PT ADMITTED FROM ER VIA [facility] WITH ADMITTING DIAGNOSIS OF ACUTE HYPOXIC RESPIRATORY FAILURE, SEPSIS POSSIBLE PNEUMONIA. AT BEDSIDE. NO APPARENT DISTRESS NOTED. NO FACIAL GRIMACING OR ANY SIGNS OF PAIN NOTED. ON 4LPM NASAL CANNULA, O2 SAT 94%. SINUS RHYTHM ON TELE MONITOR HR 71 BPM. IV ON RIGHT FOREARM #18 INTACT AND PATENT, FLUSHING WELL. PERTINENT ASSESSMENTS DONE. PT NOTED TO HAVE REDNESS ON SACRUM AND SCROTUM AND ALSO SKIN DISCOLORATION ON LEFT FOREARM, PICTURES TAKEN AND PLACED ON CHART. KEPT CLEAN, DRY AND COMFORTABLE. SAFETY AND FALL PRECAUTIONS OBSERVED AND MAINTAINED. WILL CONTINUE TO MONITOR PT.
--- NOTE | 2018-04-01 21:31 | NUR ---
PT TRANSFERRED PER ACLS PROTOCOL
[2018-04-01 21:33] VITALS: BP 139/80
[2018-04-01] MEDS ORDERED: DEXTROSE 50%-WATER 50 ML DISP.SYRIN IV PRN (22:30)
[2018-04-01] MEDS ORDERED: ACETAMINOPHEN 325 MG TABLET MC PRN (22:30)
[2018-04-01] MEDS ORDERED: INSULIN REGULAR, HUMAN 100 UNIT/ML 3 ML VIAL SQ PRN (22:30)
[2018-04-01] MEDS ORDERED: IPRATROPIUM NEB FS 0.5 MG/2.5 ML AMPUL.NEB NEB PRN (22:30)
[2018-04-01] MEDS ORDERED: Z GUARD REMEDY 2 OZ OINT TP PRN (22:30)
[2018-04-01] MEDS ORDERED: MAG HYDROX/AL HYDROX/SIMETH 30 ML UDC GT PRN (22:30)
[2018-04-01] MEDS ORDERED: ONDANSETRON HCL/PF 4 MG/2 ML VIAL IVP PRN (22:30)
[2018-04-01] MEDS ORDERED: MAGNESIUM HYDROXIDE 30 ML UDC PO PRN (22:30)
[2018-04-01] MEDS ORDERED: ALBUTEROL FS 2.5 MG/3 ML VIAL.NEB NEB PRN (22:30)
[2018-04-01] MEDS: IV NS 0.9% 1,000 ML IV PRN (22:49)
[2018-04-01] MEDS: HYDROCODONE/APAP 5/325MG 1 EACH TABLET GT PRN (23:22)
[2018-04-01] MEDS: ENOXAPARIN SODIUM 40 MG/0.4 ML DISP.SYRIN SQ SCH (23:42)
[2018-04-02] VITALS (8 sets, daily range): BP systolic 107–164; BP diastolic 64–95
[2018-04-02] MEDS ORDERED: PIPERACILLIN /TAZOBACTAM 3.375 G in IV D5W 50 ML IV SCH ×2
[2018-04-02] MEDS: BLOOD SUGAR DIAGNOSTIC 1 EACH STRIP IN SCH ×4 (00:22→17:57)
[2018-04-02] MEDS ORDERED: PIPERACILLIN /TAZOBACTAM 3.375 G in IV D5W 50 ML IV ONE (02:00)
[2018-04-02] MEDS ORDERED: PIPERACILLIN /TAZOBACTAM 3.375 G VIAL IV ONE (02:26)
[2018-04-02] MEDS: HYDROMORPHONE 1 MG/1 ML DISP.SYRIN IV PRN ×2 (06:46→08:07)
--- NOTE | 2018-04-02 06:51 | NUR ---
SUPERINTENDENT OPERATIONS DIVISION NOTE: NO CHANGES NOTED THROUGHOUT THE SHIFT. PT STILL ON 4LPM NASAL CANNULA, O2 SAT 93-95%. PT COMPLAINED OF GENERALIZED PAIN, PRN DILAUDID GIVEN ORDERED. ON TELE MONITOR SINUS RHYTHM HR 74BPM. IV ON RIGHT FOREARM #18 INTACT AND PATENT WITH IVF NS RUNNING AT 75ML/HR. KEPT CLEAN, DRY AND COMFORTABLE. SAFETY AND FALL PRECAUTIONS OBSERVED AND MAINTAINED. WILL ENDORSE TO DAY SHIFT RN FOR CONTINUITY OF CARE.
[2018-04-02 06:55] LABS: BASOPHILS % (AUTO) 0.4 % (0.0-2.0); EOSINOPHILS % (AUTO) 3.2 % (0.0-6.0); HEMATOCRIT 32 % (39-51); HEMOGLOBIN 10.5 g/dL (13.5-17.5); LYMPHOCYTES # (AUTO) 1.4 /CMM (0.8-4.8); LYMPHOCYTES % (AUTO) 12.4 % (20.0-44.0); MEAN CORPUSCULAR HGB CONC 33 g/dl (31.0-36.0); MEAN CORPUSCULAR VOLUME 90 fL (80-96); MONOCYTES # (AUTO) 0.9 /CMM (0.1-1.30); MONOCYTES % (AUTO) 8.5 % (2.0-12.0); NEUTROPHILS # (AUTO) 8.4 /CMM (1.8-8.9); NEUTROPHILS % (AUTO) 75.5 % (43.0-81.0); PLATELET COUNT (AUTO) 268 /CMM (150-450); RED BLOOD CELL COUNT(AUTO) 3.58 MIL/uL (4.5-6.0); WHITE BLOOD COUNT (AUTO) 11.1 K/uL (4.3-11.0)
[2018-04-02 07:14] LABS: CALCIUM, SERUM 8.3 mg/dL (8.5-10.1); CREATININE 1.2 mg/dL (0.6-1.3); MAGNESIUM 2.1 mg/dL (1.8-2.4); PHOSPHORUS 2.9 mg/dL (2.5-4.9); POTASSIUM 3.9 mmol/L (3.5-5.1)
[2018-04-02] MEDS: PANTOPRAZOLE 40 MG/PACK PACK GT SCH (07:30)
--- NOTE | 2018-04-02 09:19 | NUR ---
SINGLE POINTED OPERATOR DF PT HYPERTENSIVE S/W PICTURE HANGER ELIZABETH MED REC TO BE COMPLETED. PT WITH INCREASED SOB ON 4 LPM N/C O2 SAT OF 89-91 PT WITH LARGE RIGHT PLEURAL EFFUSION AWAITING CARDIO THORACIC CONSULT/PULMONARY CONSULT. STAT ABG ORDERED RT WILVER AT BEDSIDE.
[2018-04-02 09:28] LABS: ABG BASE EXCESS 0.7 mmol/L; ABG OXYGEN SATURATION 92.3 % (92.0-98.5); ABG PCO2 36.8 mmHg (35.0-45.0); ABG PH 7.443 (7.350-7.450); ABG PO2 66.8 mmHg (75.0-100.0); AaDO2 147.2 mmHg; COHb 0.6 % (0.5-1.5); MetHb 1.3 % (0.0-1.5); O2Hb 90.5 % (94.0-97.0); SITE, ABG Right Radial; VENT MODE, BG NASAL CANNULA
[2018-04-02] MEDS ORDERED: IPRATROPIUM NEB FS 0.5 MG/2.5 ML AMPUL.NEB IH PRN (09:30)
[2018-04-02] MEDS ORDERED: ALENDRONATE 70 MG TABLET GT SCH (09:30)
[2018-04-02] MEDS ORDERED: ALBUTEROL FS 2.5 MG/0.5 ML VIAL.NEB IH PRN (09:30)
[2018-04-02] MEDS ORDERED: CLONIDINE HCL 0.1 MG TABLET GT PRN (09:30)
[2018-04-02] MEDS ORDERED: BISACODYL SUPP (10 MG) 10 MG/SUPP.RECT SUPP.RECT RC PRN (09:30)
[2018-04-02] MEDS ORDERED: hydrALAZINE HCL IV 20 MG VIAL IV PRN (09:30)
[2018-04-02] MEDS ORDERED: LORAZEPAM 1 MG TABLET PO SCH (09:30)
--- NOTE | 2018-04-02 09:40 | NUR ---
CABIN CREW DF ABG RESULTED WNL PO2 LOW @ 66.8 PT PLACED ON N/C @ 6LPM CO2 IS 36.8. PT HAS ORDER FOR THORACENTESIS. PT HYPERTENSIVE SBP 163 PT WILL BE ADMIN PRN HYDRALAZINE AWAITING PHARMACY VERIFICATION. VSS. NAD NOTED
[2018-04-02] MEDS: PIPERACILLIN /TAZOBACTAM 3.375 G in IV D5W 100 ML IV SCH ×2 (10:22→17:15)
[2018-04-02] MEDS: MULTIVITAMINS,THERAGRAN 1 UDTAB TABLET GT SCH (10:23)
--- NOTE | 2018-04-02 11:05 | NUR ---
Routine thoracentesis ordered for patient. I contacted the nurse, Parth and asked about which blood thinners the patient is on. Patient was given Plavix yesterday. I explained to Parth that according to policy, Plavix needs to be held 5 days prior to procedure so we cannot do it today.
[2018-04-02] MEDS: hydrALAZINE HCL 50 MG TABLET GT SCH ×2 (12:28→21:12)
--- NOTE | 2018-04-02 12:28 | NUR ---
rn baby df pt pending u/s guided thoracentesis order changed to stat. radiology aware, awaiting confirmation procedure needs to be done today/stat. vss. nad noted. tolerating n/c @ 4 lpm. placed condom cath for pt, draining clear yellow urine. npo 2nd procedure planned today.
[2018-04-02] MEDS: IV NS 0.9% 1,000 ML IV PRN (12:52)
[2018-04-02] MEDS ORDERED: LIDOCAINE 1% INJ 50 ML MDV IJ ONE (13:30)
[2018-04-02] MEDS: IPRATROPIUM NEB FS 0.5 MG/2.5 ML AMPUL.NEB IH SCH ×2 (16:16→19:45)
[2018-04-02] MEDS: ALBUTEROL FS 2.5 MG/0.5 ML VIAL.NEB IH SCH ×2 (16:16→19:45)
[2018-04-02] MEDS ORDERED: GLUCERNA 1.2 1,000 ML BOTTLE NG PRN (17:00)
[2018-04-02] MEDS: GEMFIBROZIL 600 MG TABLET GT SCH (17:00)
[2018-04-02] MEDS: HYDROCODONE/APAP 5/325MG 1 EACH TABLET GT PRN ×2 (17:14→22:12)
[2018-04-02] MEDS: OXCARBAZEPINE 150 MG TABLET PO SCH (17:15)
--- NOTE | 2018-04-02 20:00 | NUR ---
Received patient awake non verbal.Respiration even and unlabored.With O2 4L NC saturation 95%.SR per monitor.GT feeding infusing at 20 ml/hr no residual noted.With abdominal binder on per to prevent pulling out gt.HOB elevated.IVF infusing to RFA site intact.Condom cath in place draining yellow urine.Turned and repositioned offloading pressure points.No acute distress noted.Call light at bedside.
[2018-04-02] MEDS ORDERED: VANCOMYCIN 1 GM VIAL ONE (20:05)
[2018-04-02] MEDS ORDERED: IV NS 0.9% 250 ML IV ONE (20:30)
[2018-04-02] MEDS ORDERED: VANCOMYCIN 1.25 GM in IV D5W 500 ML IV ONE (20:30)
[2018-04-02] MEDS: CARVEDILOL 12.5 MG TABLET GT SCH (21:12)
[2018-04-02] MEDS: ENOXAPARIN SODIUM 40 MG/0.4 ML DISP.SYRIN SQ SCH (21:14)
[2018-04-02] MEDS: BACLOFEN (10 MG) 10 MG TABLET GT SCH (21:15)
--- NOTE | 2018-04-02 21:32 | NUR ---
PLEASE NOTE: VANCOMYCIN 1 GM GIVEN IVPB INSTEAD OF VANCOMYCIN 1.25 GM (NOT AVAILABLE) BUT CLICK 1.25 IN EMAR INSTEAD.AFTER HOUR PHARMACIST KAITLYNN NOTIFIED.
--- NOTE | 2018-04-02 22:19 | NUR ---
RN NOTES ROXANNE WALALCE NP NOTIFIED ABOUT VANCOMYCIN DOSE GIVEN. ALSO NOTIFIED HIM THAT MARTY AT AFTER HOUR PHARMACY WAS MADE AWARE
--- NOTE | 2018-04-02 22:21 | NUR ---
Condom catheter pulled out by patient.Incontinent of urine.Kept clean and dry. Repositioned.Patient grimacing and moaning pain medication administered as PRN. at bedside.Continue monitoring
[2018-04-03] VITALS (10 sets, daily range): BP systolic 107–169; BP diastolic 56–90
[2018-04-03] MEDS: BLOOD SUGAR DIAGNOSTIC 1 EACH STRIP IN SCH ×5 (00:04→23:38)
[2018-04-03] MEDS: PIPERACILLIN /TAZOBACTAM 3.375 G in IV D5W 100 ML IV SCH ×3 (01:04→17:15)
[2018-04-03] MEDS: IPRATROPIUM NEB FS 0.5 MG/2.5 ML AMPUL.NEB IH SCH ×4 (01:49→20:24)
[2018-04-03] MEDS: ALBUTEROL FS 2.5 MG/0.5 ML VIAL.NEB IH SCH ×4 (01:49→20:24)
[2018-04-03] MEDS: IV NS 0.9% 1,000 ML IV PRN ×2 (05:01→19:25)
[2018-04-03] MEDS: hydrALAZINE HCL 50 MG TABLET GT SCH ×3 (05:04→21:04)
[2018-04-03 06:39] LABS: BASOPHILS # (AUTO) 0.1 /CMM (0.0-0.2); BASOPHILS % (AUTO) 0.6 % (0.0-2.0); EOSINOPHILS % (AUTO) 1.6 % (0.0-6.0); HEMATOCRIT 32 % (39-51); HEMOGLOBIN 10.7 g/dL (13.5-17.5); LYMPHOCYTES % (AUTO) 8.9 % (20.0-44.0); MEAN CORPUSCULAR HGB CONC 33 g/dl (31.0-36.0); MEAN CORPUSCULAR VOLUME 90 fL (80-96); MONOCYTES # (AUTO) 0.8 /CMM (0.1-1.30); MONOCYTES % (AUTO) 6.8 % (2.0-12.0); NEUTROPHILS # (AUTO) 9.6 /CMM (1.8-8.9); NEUTROPHILS % (AUTO) 82.1 % (43.0-81.0); PLATELET COUNT (AUTO) 257 /CMM (150-450); RED BLOOD CELL COUNT(AUTO) 3.59 MIL/uL (4.5-6.0); WHITE BLOOD COUNT (AUTO) 11.7 K/uL (4.3-11.0)
[2018-04-03 06:59] LABS: CALCIUM, SERUM 7.9 mg/dL (8.5-10.1); CREATININE 1.1 mg/dL (0.6-1.3); PHOSPHORUS 2.3 mg/dL (2.5-4.9); POTASSIUM 3.6 mmol/L (3.5-5.1)
[2018-04-03] MEDS ORDERED: PANTOPRAZOLE 40 MG TABLET.DR PO SCH (07:30)
[2018-04-03] MEDS: CARVEDILOL 12.5 MG TABLET GT SCH ×2 (07:37→21:05)
[2018-04-03] MEDS: GEMFIBROZIL 600 MG TABLET GT SCH ×2 (07:38→17:14)
[2018-04-03] MEDS: PANTOPRAZOLE 40 MG/PACK PACK GT SCH (07:38)
[2018-04-03] MEDS: MULTIVITAMINS,THERAGRAN 1 UDTAB TABLET GT SCH (07:38)
[2018-04-03] MEDS: OXCARBAZEPINE 150 MG TABLET PO SCH ×2 (07:38→17:14)
[2018-04-03] MEDS: HYDROCODONE/APAP 5/325MG 1 EACH TABLET GT PRN ×3 (07:55→22:43)
[2018-04-03] MEDS ORDERED: FEE PK DOSING 1 MIN EA MC ONE (08:49)
[2018-04-03] MEDS: VANCOMYCIN 1 GM in IV D5W 250 ML IV SCH ×2 (09:22→21:05)
[2018-04-03] MEDS: SENNOSIDES 8.6 MG TABLET GT SCH (09:22)
[2018-04-03] MEDS: CITALOPRAM HYDROBROMIDE 20 MG TABLET GT SCH (09:22)
[2018-04-03] MEDS: ATENOLOL 50 MG TABLET GT SCH (09:23)
[2018-04-03] MEDS: CALCIUM CARBONATE 500 MG TAB.CHEW GT SCH (10:06)
[2018-04-03] MEDS: CLOPIDOGREL BISULFATE 75 MG TABLET GT SCH (10:06)
[2018-04-03] MEDS: AMLODIPINE BESYLATE 5 MG TABLET GT SCH (10:17)
[2018-04-03] MEDS ORDERED: NEUTRA PHOS 1 POWD.PACKET NG ONE (11:30)
[2018-04-03 16:54] LABS: ABG BASE EXCESS 1.4 mmol/L; ABG PCO2 39.7 mmHg (35.0-45.0); ABG PO2 73.1 mmHg (75.0-100.0); AaDO2 94.2 mmHg; COHb 0.5 % (0.5-1.5); MetHb 0.6 % (0.0-1.5); SITE, ABG Right Radial; VENT MODE, BG 3L NC
[2018-04-03] MEDS: BACLOFEN (10 MG) 10 MG TABLET GT SCH (21:05)
[2018-04-03] MEDS: ZOLPIDEM TARTRATE 5 MG TABLET GT PRN (22:43)
[2018-04-04] VITALS: BP 115/60
[2018-04-04] MEDS: PIPERACILLIN /TAZOBACTAM 3.375 G in IV D5W 100 ML IV SCH ×3 (00:30→16:19)
[2018-04-04] MEDS: IPRATROPIUM NEB FS 0.5 MG/2.5 ML AMPUL.NEB IH SCH ×4 (01:30→20:03)
[2018-04-04] MEDS: ALBUTEROL FS 2.5 MG/0.5 ML VIAL.NEB IH SCH ×4 (01:30→20:03)
[2018-04-04] MEDS: HYDROCODONE/APAP 5/325MG 1 EACH TABLET GT PRN ×3 (03:34→20:00)
[2018-04-04 04:00] VITALS: BP 146/77
[2018-04-04] MEDS: BLOOD SUGAR DIAGNOSTIC 1 EACH STRIP IN SCH ×3 (05:47→17:11)
[2018-04-04] MEDS: hydrALAZINE HCL 50 MG TABLET GT SCH ×3 (05:48→21:25)
--- NOTE | 2018-04-04 07:05 | NUR ---
RN NOTES RECEIVED PT ON BED, ALERT/ NONVERBAL , ON 4L O2 N/C ,RESPIRATION EVEN AND UNLABORED, NO SOB NOTED, ON TELE SR HR IN 60'S , CONDOM CATH DRINING TO GRAVITY , NS AT 75CC /HR RUNNING VIA L AC IV SITE G 20 , SITE CLEAN ,DRY AND INTACT, SUPPORTIVE FAMILY AT THE BEDSIDE, SR UP x3, CALL LIGHT WITHIN EASY REACH, BED LOCKED AND IN LOWEST POSITION, CONTINUE TO MONITOR .
--- NOTE | 2018-04-04 07:34 | NUR ---
LISSA RN NOTE PT REMAINED STABLE DURING SHIFT. KEPT CLEAN AND DRY. REPOSITIONED Q2H. HOB ELEVATED AND ON ASPIRATION PRECAUTIONS. MANAGED PAIN AND GAVE PAIN MEDS PER REQUEST. NO ACUTE DISTRESS NOTED. WILL ENDORSE TO NEXT SHIFT FOR CONTINUITY OF CARE.
[2018-04-04 08:00] VITALS: BP 112/60
[2018-04-04 08:06] LABS: BASOPHILS # (AUTO) 0.1 /CMM (0.0-0.2); BASOPHILS % (AUTO) 0.6 % (0.0-2.0); EOSINOPHILS % (AUTO) 2.1 % (0.0-6.0); HEMATOCRIT 30 % (39-51); HEMOGLOBIN 9.9 g/dL (13.5-17.5); LYMPHOCYTES # (AUTO) 0.9 /CMM (0.8-4.8); LYMPHOCYTES % (AUTO) 8.1 % (20.0-44.0); MEAN CORPUSCULAR HGB CONC 33 g/dl (31.0-36.0); MEAN CORPUSCULAR VOLUME 89 fL (80-96); MONOCYTES # (AUTO) 0.7 /CMM (0.1-1.30); MONOCYTES % (AUTO) 6.6 % (2.0-12.0); NEUTROPHILS # (AUTO) 8.8 /CMM (1.8-8.9); NEUTROPHILS % (AUTO) 82.6 % (43.0-81.0); PLATELET COUNT (AUTO) 226 /CMM (150-450); RED BLOOD CELL COUNT(AUTO) 3.31 MIL/uL (4.5-6.0); WHITE BLOOD COUNT (AUTO) 10.7 K/uL (4.3-11.0)
[2018-04-04 08:20] LABS: CALCIUM, SERUM 7.7 mg/dL (8.5-10.1); PHOSPHORUS 2.7 mg/dL (2.5-4.9); POTASSIUM 3.7 mmol/L (3.5-5.1)
[2018-04-04] MEDS: SENNOSIDES 8.6 MG TABLET GT SCH (08:27)
[2018-04-04] MEDS: CALCIUM CARBONATE 500 MG TAB.CHEW GT SCH (08:27)
[2018-04-04] MEDS: PANTOPRAZOLE 40 MG/PACK PACK GT SCH (08:27)
[2018-04-04] MEDS: MULTIVITAMINS,THERAGRAN 1 UDTAB TABLET GT SCH (08:28)
[2018-04-04] MEDS: ATENOLOL 50 MG TABLET GT SCH (08:28)
[2018-04-04] MEDS: OXCARBAZEPINE 150 MG TABLET PO SCH ×2 (08:28→16:16)
[2018-04-04] MEDS: CITALOPRAM HYDROBROMIDE 20 MG TABLET GT SCH (08:28)
[2018-04-04] MEDS: CARVEDILOL 12.5 MG TABLET GT SCH ×2 (08:28→21:26)
[2018-04-04] MEDS: AMLODIPINE BESYLATE 5 MG TABLET GT SCH (08:31)
[2018-04-04] MEDS: GEMFIBROZIL 600 MG TABLET GT SCH ×2 (08:33→16:16)
--- NOTE | 2018-04-04 08:55 | NUR ---
WOUND CARE CONSULT: PT UNSTABLE FOR TURNING AT THIS TIME PER RN. WILL SEE PT PT CONDITION PERMITS. ALL SKIN PROTECTION RECOMMENDATIONS DISCUSSED WITH NURSING STAFF. CURRENT MELANY SCORE IS 14.
[2018-04-04 08:58] LABS: ABG BASE EXCESS -0.1 mmol/L; ABG PCO2 40.1 mmHg (35.0-45.0); ABG PH 7.405 (7.350-7.450); ABG PO2 82.6 mmHg (75.0-100.0); AaDO2 105.9 mmHg; COHb 0.3 % (0.5-1.5); MetHb 0.4 % (0.0-1.5); O2Hb 94.3 % (94.0-97.0); SITE, ABG Right Brachial; VENT MODE, BG nasal cannula
[2018-04-04] MEDS: CLOPIDOGREL BISULFATE 75 MG TABLET GT SCH (09:00)
[2018-04-04] MEDS: VANCOMYCIN 1 GM in IV D5W 250 ML IV SCH ×2 (09:00→20:40)
--- NOTE | 2018-04-04 10:00 | NUR ---
RN NOTES DR LEHMAN NOTIFED REGARDING POSITIVE BLOOD CULTURE IN ONE BOTTLE FOR GRAM POSITIVE RODS THAT WAS DRAWN ON 04/01/2018 .
--- NOTE | 2018-04-04 10:00 | NUR ---
RN NOTES PLAVIX HELD PER DR. LEHMAN ORDER .
[2018-04-04] MEDS: IV NS 0.9% 1,000 ML IV PRN (11:54)
--- NOTE | 2018-04-04 11:55 | NUR ---
per Dr Henley on mar 09:22 approved to move forward with the thoracentesis despite patient has taken plavix.
[2018-04-04 12:00] VITALS: BP 95/60
--- NOTE | 2018-04-04 12:00 | NUR ---
RN NOTES CONDOM CATH FELL OFF , NEW ONE APPLIED .
[2018-04-04 16:00] VITALS: BP 155/81
[2018-04-04] MEDS: LACTOBACILLUS RHAMNOSUS GG 1 EACH CAP.SPRINK GT SCH (16:16)
--- NOTE | 2018-04-04 18:33 | NUR ---
RN NOTES PT STABLE , R UPPER CHEST DRESSING CLEAN ,DRY AND INTACT, PT STABLE , SUPPORTIVE AT THE BEDSIDE, WILL ENDOSE TO DATA SCIENTIST NURSE FOR CONTINUITY OF CARE .
[2018-04-04 20:00] VITALS: BP_SYST 119; BP_SYST 130; BP_DIAS 69; BP_DIAS 80
[2018-04-04] MEDS: BACLOFEN (10 MG) 10 MG TABLET GT SCH (21:26)
[2018-04-05] VITALS: BP 108/63
[2018-04-05] MEDS: BLOOD SUGAR DIAGNOSTIC 1 EACH STRIP IN SCH ×4 (00:26→17:33)
[2018-04-05] MEDS: PIPERACILLIN /TAZOBACTAM 3.375 G in IV D5W 100 ML IV SCH ×3 (00:50→16:14)
[2018-04-05] MEDS: IPRATROPIUM NEB FS 0.5 MG/2.5 ML AMPUL.NEB IH SCH ×4 (01:44→19:41)
[2018-04-05] MEDS: ALBUTEROL FS 2.5 MG/0.5 ML VIAL.NEB IH SCH ×4 (01:44→19:41)
[2018-04-05 04:00] VITALS: BP 126/67
[2018-04-05] MEDS: hydrALAZINE HCL 50 MG TABLET GT SCH ×3 (05:00→20:34)
[2018-04-05] MEDS: IV NS 0.9% 1,000 ML IV PRN ×2 (07:03→19:53)
--- NOTE | 2018-04-05 07:10 | NUR ---
RN NOTES RECEIVED PT ON BED, A/Ox1, ON 2L O2 N/C , RESPIRATION EVEN AND UNLABORED, NO SOB NOTED, ON TELE SR HR IN 70'S , CONDOM CATH DRINING TO GRAVITY, SUPPORTIVE FAMILY AT THE BEDSIDE, NS AT 75CC /HR RUNNING VIA R HAND IV SITE , SR UP x3, CALL LIGHT WITHIN EASY REACH, BED LOCKED AND IN LOWEST POSITION, CONTINUE TO MONITOR .
[2018-04-05 08:00] VITALS: BP 162/100
[2018-04-05 08:24] LABS: BASOPHILS % (AUTO) 0.4 % (0.0-2.0); HEMATOCRIT 32 % (39-51); HEMOGLOBIN 10.6 g/dL (13.5-17.5); LYMPHOCYTES # (AUTO) 1.1 /CMM (0.8-4.8); MEAN CORPUSCULAR HGB CONC 33 g/dl (31.0-36.0); MEAN CORPUSCULAR VOLUME 89 fL (80-96); MONOCYTES # (AUTO) 0.9 /CMM (0.1-1.30); MONOCYTES % (AUTO) 8.5 % (2.0-12.0); NEUTROPHILS % (AUTO) 77.1 % (43.0-81.0); PLATELET COUNT (AUTO) 235 /CMM (150-450); WHITE BLOOD COUNT (AUTO) 10.4 K/uL (4.3-11.0)
[2018-04-05 08:36] LABS: CALCIUM, SERUM 8.1 mg/dL (8.5-10.1); POTASSIUM 3.8 mmol/L (3.5-5.1)
[2018-04-05] MEDS: CLOPIDOGREL BISULFATE 75 MG TABLET GT SCH (08:48)
[2018-04-05] MEDS: ATENOLOL 50 MG TABLET GT SCH (08:48)
[2018-04-05] MEDS: GEMFIBROZIL 600 MG TABLET GT SCH ×2 (08:48→16:11)
[2018-04-05] MEDS: SENNOSIDES 8.6 MG TABLET GT SCH (08:48)
[2018-04-05] MEDS: MULTIVITAMINS,THERAGRAN 1 UDTAB TABLET GT SCH (08:48)
[2018-04-05] MEDS: CALCIUM CARBONATE 500 MG TAB.CHEW GT SCH (08:48)
[2018-04-05] MEDS: CARVEDILOL 12.5 MG TABLET GT SCH ×2 (08:49→20:34)
[2018-04-05] MEDS: OXCARBAZEPINE 150 MG TABLET PO SCH ×2 (08:49→16:11)
[2018-04-05] MEDS: PANTOPRAZOLE 40 MG/PACK PACK GT SCH (08:49)
[2018-04-05] MEDS: LACTOBACILLUS RHAMNOSUS GG 1 EACH CAP.SPRINK GT SCH ×2 (08:49→16:11)
[2018-04-05] MEDS: CITALOPRAM HYDROBROMIDE 20 MG TABLET GT SCH (08:50)
[2018-04-05] MEDS: AMLODIPINE BESYLATE 5 MG TABLET GT SCH (08:50)
--- NOTE | 2018-04-05 08:56 | NUR ---
WOUND CARE CONSULT: PT PRESENTS WITH BLANCHABLE REDNESS TO BONY SACRUM, PRESENT ON ADMISSION. RECOMMENDATIONS MADE FOR SKIN PROTECTION AND CARE. DISCUSSED WITH NURSING STAFF. CURRENT MELANY SCORE IS 15. G TUBE NOTED (SITE CLEAR). WILL SEE PRN. FOSTER IN AGREEMENT WITH PLAN OF CARE. Addendum: 04/05/18 at 0858 by CALI MCCLOUD WNDNU Amended: Links added.
[2018-04-05 12:00] VITALS: BP 125/80
[2018-04-05] MEDS: VANCOMYCIN 1 GM in IV D5W 250 ML IV SCH (13:43)
[2018-04-05] MEDS ORDERED: GLUCERNA 1.2 1,000 ML BOTTLE NG PRN (14:00)
[2018-04-05 16:00] VITALS: BP 135/77
[2018-04-05] MEDS: HYDROCODONE/APAP 5/325MG 1 EACH TABLET GT PRN (16:11)
--- NOTE | 2018-04-05 18:28 | NUR ---
RN NOTES TF AT 60 CC/ HR RUNNING VIA PEG, TOLERATING WELL, NO SIGNIFICANT CHANGES NOTED ON THIS SHIFT , WILL ENDOSE TO DEALER CARD ROOM NURSE FOR CONTINUITY OF CARE .
[2018-04-05 20:00] VITALS: BP 126/74
[2018-04-05] MEDS: ZOLPIDEM TARTRATE 5 MG TABLET GT PRN (20:39)
[2018-04-05] MEDS: BACLOFEN (10 MG) 10 MG TABLET GT SCH (21:52)
[2018-04-06] VITALS: BP_SYST 126; BP_SYST 128; BP_DIAS 74
[2018-04-06] MEDS: BLOOD SUGAR DIAGNOSTIC 1 EACH STRIP IN SCH ×3 (00:10→12:00)
[2018-04-06] MEDS: PIPERACILLIN /TAZOBACTAM 3.375 G in IV D5W 100 ML IV SCH ×2 (00:11→10:01)
--- NOTE | 2018-04-06 00:53 | NUR ---
RN NOTE PATIENT KEEPS ON REMOVING IV LINES, OXYGEN TUBING, NOTIFIED SHAKIRA Bazan NP, NEW ORDER IS GIVEN AND CARRIED OUT
[2018-04-06] MEDS: IPRATROPIUM NEB FS 0.5 MG/2.5 ML AMPUL.NEB IH SCH ×3 (01:30→13:45)
[2018-04-06] MEDS: ALBUTEROL FS 2.5 MG/0.5 ML VIAL.NEB IH SCH ×3 (01:30→13:45)
[2018-04-06 04:00] VITALS: BP 134/84
[2018-04-06] MEDS: HYDROCODONE/APAP 5/325MG 1 EACH TABLET GT PRN ×2 (05:40→11:00)
[2018-04-06] MEDS: hydrALAZINE HCL 50 MG TABLET GT SCH ×2 (05:40→14:05)
[2018-04-06 06:56] LABS: CALCIUM, SERUM 7.9 mg/dL (8.5-10.1); CREATININE 1.1 mg/dL (0.6-1.3); POTASSIUM 3.7 mmol/L (3.5-5.1)
--- NOTE | 2018-04-06 07:25 | NUR ---
RN OPENING NOTES RECEIVED PT ON BED, A/Ox1, ON 2L O2 N/C , RESPIRATION EVEN AND UNLABORED, NO SOB NOTED, ON TELE SR HR IN 70'S , CONDOM CATH DRAINING TO GRAVITY, SUPPORTIVE FAMILY AT THE BEDSIDE, NS AT 75CC /HR RUNNING VIA R HAND IV SITE , SR UP x3, CALL LIGHT WITHIN EASY REACH, BED LOCKED AND IN LOWEST POSITION, CONTINUE TO MONITOR .
[2018-04-06] MEDS: VANCOMYCIN 1 GM in IV D5W 250 ML IV SCH (08:29)
[2018-04-06] MEDS: AMLODIPINE BESYLATE 5 MG TABLET GT SCH (08:29)
[2018-04-06] MEDS: ATENOLOL 50 MG TABLET GT SCH (08:30)
[2018-04-06] MEDS: GEMFIBROZIL 600 MG TABLET GT SCH (08:30)
[2018-04-06] MEDS: MULTIVITAMINS,THERAGRAN 1 UDTAB TABLET GT SCH (08:30)
[2018-04-06] MEDS: CARVEDILOL 12.5 MG TABLET GT SCH (08:30)
[2018-04-06] MEDS: SENNOSIDES 8.6 MG TABLET GT SCH (08:31)
[2018-04-06] MEDS: CALCIUM CARBONATE 500 MG TAB.CHEW GT SCH (08:31)
[2018-04-06] MEDS: CITALOPRAM HYDROBROMIDE 20 MG TABLET GT SCH (08:31)
[2018-04-06] MEDS: PANTOPRAZOLE 40 MG/PACK PACK GT SCH (08:31)
[2018-04-06] MEDS: CLOPIDOGREL BISULFATE 75 MG TABLET GT SCH (08:31)
[2018-04-06] MEDS: LACTOBACILLUS RHAMNOSUS GG 1 EACH CAP.SPRINK GT SCH (08:31)
[2018-04-06] MEDS: OXCARBAZEPINE 150 MG TABLET PO SCH (08:31)
[2018-04-06] MEDS ORDERED: CLONIDINE HCL 0.2MG/24H PTWK 1 EA PATCH TD SCH (09:30)
[2018-04-06 12:00] VITALS: BP 155/96
[2018-04-06 14:05] VITALS: BP 130/70
--- NOTE | 2018-04-06 15:15 | NUR ---
RN CLOSING NOTES PATIENT DISCHARGED TO [facility] IN STABLE CONDITION. A/Ox1, ON 2L O2 N/C , RESPIRATION EVEN AND UNLABORED, NO SOB NOTED, FAMILY AT THE BEDSIDE, MADE AWARE .REPORT GIVEN TO RN AT [facility],MADE AWARE THAT NEED TO CONTINUE ATB FOR 5 MORE DAYS.ASHLEY PER IN NITIN. R HAND IV SITE INTACT.LEFT VIA AMBULANCE WITH PARAMEDICS.
== END 2018-04-06 15:15 | DRG 871 ==
LOC: ER 18:40 → TELE1 20:29 → TELE-TD 22:30 → TELE1 04-04 11:15 → MEDSG1 04-06 10:57
PROVIDERS: ADMIT Nurse Practitioner Acute Care; ATTEND Internal Medicine
PROC: 0W993ZZ Drainage of Right Pleural Cavity, Percutaneous Approach (ICD-10-PCS; principal; 2018-04-04)
DX: A41.9 Sepsis, unspecified organism (principal); G93.41 Metabolic encephalopathy; J96.01 Acute respiratory failure with hypoxia; J15.6 Pneumonia due to other Gram-negative bacteria; J15.9 Unspecified bacterial pneumonia; R53.2 Functional quadriplegia; E44.0 Moderate protein-calorie malnutrition; D68.59 Other primary thrombophilia; I13.0 Hypertensive heart and chronic kidney disease with heart failure and stage 1 through stage 4 chronic kidney disease, or unspecified chronic kidney disease; J90 Pleural effusion, not elsewhere classified; I69.851 Hemiplegia and hemiparesis following other cerebrovascular disease affecting right dominant side; E72.20 Disorder of urea cycle metabolism, unspecified; J98.11 Atelectasis; I50.32 Chronic diastolic (congestive) heart failure; D63.8 Anemia in other chronic diseases classified elsewhere; E11.22 Type 2 diabetes mellitus with diabetic chronic kidney disease; E78.5 Hyperlipidemia, unspecified; Z74.01 Bed confinement status; Z87.01 Personal history of pneumonia (recurrent); I34.0 Nonrheumatic mitral (valve) insufficiency; E88.09 Other disorders of plasma-protein metabolism, not elsewhere classified; M62.50 Muscle wasting and atrophy, not elsewhere classified, unspecified site; Z68.21 Body mass index [BMI] 21.0-21.9, adult; E27.9 Disorder of adrenal gland, unspecified; Z93.1 Gastrostomy status; N18.9 Chronic kidney disease, unspecified; R13.10 Dysphagia, unspecified; I69.320 Aphasia following cerebral infarction; Z87.891 Personal history of nicotine dependence; Z99.81 Dependence on supplemental oxygen
CPT/HCPCS: 36415; 36600; 71045-TC; 71250-TC; 76942-TC; 80048-TC; 80061-TC; 80076-TC; 80202-TC; 81000-TC; 82140-TC; 82803-TC; 82962-TC; 83605-TC; 83735-TC; 84100-TC; 84155-TC; 84443-TC; 84484-TC; 85025-TC; 85730-TC; 87040-TC; 87070-TC; 87081-TC; 87086-TC; 89051-TC; 93307-TC; 94760-TC; 97110-TC; A4349; A4606; A6403; G0378; J0360; J1170; J1650; J1815; J2543; J3370; J3490; J7030; J7050; J7060; Z7610

== ENCOUNTER 2018-04-08 11:22 | Inpatient (IN) | payer MEDICARE ==
[~2018-04-08] VITALS: Ht 167.6 cm; Wt 61.2 kg
--- NOTE | 2018-04-08 11:25 | NUR ---
PT BIB PRIVATE AMBULANCE FOR ABLABS, HGB 6.3/HCT 20.4 FOR FUTHER EVAL, PT IS AWAKE BUT UNABLE TO SPEAK, NOT IN RESPIRATORY DISTRESS, V/S STABLE, KEPT RESTED AND COMFORTABLE, WILL CONTINUE TO MONITOR.
--- NOTE | 2018-04-08 11:29 | NUR ---
DR. MCDONNELL AT BED SIDE FOR EVAL.
[2018-04-08 11:56] LABS: BASOPHILS # (AUTO) 0.1 /CMM (0.0-0.2); BASOPHILS % (AUTO) 0.9 % (0.0-2.0); EOSINOPHILS % (AUTO) 3.3 % (0.0-6.0); LYMPHOCYTES # (AUTO) 1.1 /CMM (0.8-4.8); MEAN CORPUSCULAR HGB CONC 32 g/dl (31.0-36.0); MEAN CORPUSCULAR VOLUME 92 fL (80-96); MONOCYTES # (AUTO) 0.8 /CMM (0.1-1.30); NEUTROPHILS # (AUTO) 9.6 /CMM (1.8-8.9); NEUTROPHILS % (AUTO) 79.8 % (43.0-81.0); PLATELET COUNT (AUTO) 217 /CMM (150-450); RED BLOOD CELL COUNT(AUTO) 2.14 MIL/uL (4.5-6.0)
[2018-04-08] MEDS ORDERED: PANTOPRAZOLE 40 MG VIAL ONE (11:59)
[2018-04-08] MEDS ORDERED: PANTOPRAZOLE 40 MG VIAL IV ONE (12:00)
[2018-04-08] MEDS ORDERED: IV NS 0.9% 1,000 ML BAG IV ONE (12:00)
[2018-04-08 12:01] LABS: HEMATOCRIT 20 % (39-51)
[2018-04-08 12:02] LABS: CALCIUM, SERUM 8.6 mg/dL (8.5-10.1); CARBON DIOXIDE 30 mmol/L (21-32); CHLORIDE 111 mmol/L (98-107); CREATININE 1.1 mg/dL (0.6-1.3); GLUCOSE 108 mg/dL (74-106); HEMOGLOBIN 6.3 g/dL (13.5-17.5); POTASSIUM 3.5 mmol/L (3.5-5.1); SODIUM SERUM 147 mmol/L (136-145); UREA NITROGEN, BLOOD 28 mg/dL (7-18)
--- NOTE | 2018-04-08 12:04 | NUR ---
INSPECTOR WEIGHTS AND MEASURES AT BED SIDE.
[2018-04-08 12:08] LABS: ALANINE AMINOTRANSFERASE 16 U/L (12-78); ALKALINE PHOSPHATASE 52 U/L (46-116); ASPARTATE AMINOTRANSFERASE 15 U/L (15-37); BILIRUBIN,DIRECT 0.1 mg/dL (0.0-0.2); BILIRUBIN,TOTAL 0.2 mg/dL (0.2-1.0); LIPASE 222 U/L (73-393)
[2018-04-08] MEDS ORDERED: ZINC220C8 GT (12:17)
[2018-04-08] MEDS ORDERED: PIPE3.376 IV (12:17)
[2018-04-08] MEDS ORDERED: OXCA300T15 GT (12:17)
[2018-04-08] MEDS ORDERED: ACET-2605 GT (12:17)
[2018-04-08] MEDS ORDERED: VANC750P7 IV (12:17)
[2018-04-08] MEDS ORDERED: NUT.237L30 GT (12:17)
[2018-04-08] MEDS ORDERED: LACT10SO GT (12:17)
[2018-04-08] MEDS ORDERED: PANT40SU2 GT (12:17)
[2018-04-08] MEDS ORDERED: LORA2VIA11 IM (12:17)
[2018-04-08] MEDS ORDERED: ACET650S26 GT (12:17)
[2018-04-08] MEDS ORDERED: ASCO500T9 GT (12:17)
[2018-04-08 12:26] LABS: BAND % (MANUAL) 1 % (0.0-5.0); EOSINOPHILS % (MANUAL) 2 % (0-4); LYMPHOCYTES % (MANUAL) 15 % (16-48); MONOCYTES % (MANUAL) 7 % (0-11.0); NEUTROPHILS % (MANUAL) 75 (42-76)
--- NOTE | 2018-04-08 12:47 | NUR ---
REPORT GIVEN TO JORDI. PT AWAITING TRANSFER TO FLOOR.
--- NOTE | 2018-04-08 12:54 | NUR ---
REPORT RECEIVED FROM FREDRICK IN ED PATIENT WILL GO TO ROOM 102
[2018-04-08] MEDS ORDERED: MISCELLANEOUS MED 1 EA EA GT PRN (13:00)
[2018-04-08] MEDS ORDERED: IPRATROPIUM NEB FS 0.5 MG/2.5 ML AMPUL.NEB IH PRN (13:00)
[2018-04-08] MEDS ORDERED: ALBUTEROL FS 2.5 MG/0.5 ML VIAL.NEB IH PRN (13:00)
--- NOTE | 2018-04-08 13:00 | NUR ---
FOREST OFFICER NOTES RECEIVED PATIENT FROM ED A/O X 1-2 NONVERBAL DAUGHTER AT BEDSIDE VITALS OBTAINED AND PHOTOS TAKEN. ONE LARGE MUCUS GREEN BOWEL MOVEMENT
[2018-04-08] MEDS ORDERED: ONDANSETRON HCL/PF 4 MG/2 ML VIAL IVP PRN (13:30)
[2018-04-08] MEDS ORDERED: MAGNESIUM HYDROXIDE 30 ML UDC PO PRN (13:30)
[2018-04-08] MEDS ORDERED: MAG HYDROX/AL HYDROX/SIMETH 30 ML UDC PO PRN (13:30)
[2018-04-08] MEDS ORDERED: Z GUARD REMEDY 2 OZ OINT TP PRN (13:30)
[2018-04-08 14:00] LABS: ABG BASE EXCESS 1.4 mmol/L; ABG PCO2 38.9 mmHg (35.0-45.0); ABG PH 7.438 (7.350-7.450); ABG PO2 86.6 mmHg (75.0-100.0); AaDO2 81.6 mmHg; COHb 0.6 % (0.5-1.5); MetHb 0.7 % (0.0-1.5); O2Hb 93.8 % (94.0-97.0); SITE, ABG Right Radial; VENT MODE, BG NC 3L
--- NOTE | 2018-04-08 14:30 | NUR ---
SUB PLANT MANAGER NOTES BLOOD OBTAINED FROM LAB. BLOOD NOT A MATCH TO PATIENT. TOOK BACK TO LAB TO VERIFY AND LABELS DID NOT MATCH SPECIMEN
[2018-04-08 16:00] VITALS: BP 153/92
--- NOTE | 2018-04-08 17:15 | NUR ---
ADVERTISING EXECUTIVE CLOSING NOTES REPORT GIVEN TO NOC NURSE. PATIENT A/O X2 NON VERBAL. NO SIGNS OR SYMPTOMS OF RESPIRATORY DISTRESS ON 2 LTRS NASAL CANNULA SATURATION AT 98% NO ACUTE PAIN. AT BEDSIDE. IV STARTED ON (L) FA #22 GAUGE. ATB STARTED. BLOOD DRAWN FOR TYPE AND CROSS MATCH. KEPT CLEAN AND DRY TURNED Q 2HRS. SAFETY PRECAUTIONS IN PLACE BED IN LOW POSITION AND CALL LIGHT WITHIN REACH. DIANA
[2018-04-08] MEDS: ALBUTEROL FS 2.5 MG/0.5 ML VIAL.NEB IH SCH ×2 (17:35→19:16)
[2018-04-08] MEDS: IPRATROPIUM NEB FS 0.5 MG/2.5 ML AMPUL.NEB IH SCH ×2 (17:35→19:16)
[2018-04-08] MEDS ORDERED: ZOSYN IVPB 3.375 G in IV D5W 50ml IV ONE (18:00)
[2018-04-08] MEDS: OXCARBAZEPINE 150 MG TABLET GT SCH (18:01)
[2018-04-08] MEDS ORDERED: FEE PK DOSING 1 MIN EA MC ONE (18:03)
[2018-04-08] MEDS: VANCOMYCIN 0.75 GM in IV D5W 250 ML IV SCH (18:39)
[2018-04-08 20:00] VITALS: BP 163/76
--- NOTE | 2018-04-08 20:11 | NUR ---
PRIMER SUPERVISOR NOTES RECEIVED REPORT FROM ASAD GUADALUPE. PATIENT A/A/O X1-2, NON-VERBAL BUT RESPONSIVE TO VERBAL & TACTILE STIMULI. BREATHING EVEN & UNLABORED, TOLERATING O2 @ 2LPM VIA NC. NO S/S OF RESPIRATORY DISTRESS. ON TELE W/ SINUS RHYTHM, HR 72. RIGHT AC IV #20 & LEFT FOREARM IV #22 INTACT & PATENT W/ DRESSING CDI. G-TUBE INTACT & FLUSHING WELL, CLAMPED @ THIS TIME. NO S/S OF PAIN OR DISCOMFORT @ THIS TIME. SAFETY MEASURES IN PLACE W/ SIDE RAILS UP & BED LOCKED IN LOWEST POSITION. WILL CONTINUE TO MONITOR.
[2018-04-08] MEDS: PANTOPRAZOLE 40 MG VIAL IV SCH (20:58)
[2018-04-08 21:12] VITALS: BP 142/75
--- NOTE | 2018-04-08 21:15 | NUR ---
FINISHING RANGE OPERATOR NOTES ONE UNIT PRBC TRANSFUSION STARTED. CHECKED & VERIFIED BY 2ND RN. VSS. WILL MONITOR FOR ADVERSE EFFECTS.
[2018-04-08 21:30] VITALS: BP 137/76
[2018-04-08] MEDS: LORAZEPAM INJ 2 MG/ML VIAL IM PRN (21:46)
[2018-04-08] MEDS: ZOSYN IVPB 3.375 G in IV D5W 50ml IV SCH (23:50)
[2018-04-09] VITALS (8 sets, daily range): BP systolic 106–157; BP diastolic 60–98
--- NOTE | 2018-04-09 | NUR ---
WEB DEVELOPMENT DIRECTOR NOTES ONE UNIT PRBC TRANSFUSION ENDED. VSS & NO ADVERSE REACTIONS NOTED.
--- NOTE | 2018-04-09 00:29 | NUR ---
SAP PAYROLL CONSULTANT NOTES 2ND UNIT PRBC TRANSFUSION STARTED. CHECKED & VERIFIED W/ 2ND RN. VSS. WILL MONITOR FOR ADVERSE REACTIONS.
[2018-04-09] MEDS: ALBUTEROL FS 2.5 MG/0.5 ML VIAL.NEB IH SCH ×4 (01:38→19:36)
[2018-04-09] MEDS: IPRATROPIUM NEB FS 0.5 MG/2.5 ML AMPUL.NEB IH SCH ×4 (01:38→19:35)
--- NOTE | 2018-04-09 03:40 | NUR ---
SPRAY UNIT FEEDER NOTES 2ND UNIT PRBC TRANSFUSION ENDED. VSS W/ NO ADVERSE REACTIONS NOTED.
[2018-04-09] MEDS: ZOSYN IVPB 3.375 G in IV D5W 50ml IV SCH ×4 (05:56→23:22)
[2018-04-09] MEDS: VANCOMYCIN 0.75 GM in IV D5W 250 ML IV SCH (05:57)
[2018-04-09 06:43] LABS: BASOPHILS # (AUTO) 0.1 /CMM (0.0-0.2); BASOPHILS % (AUTO) 0.8 % (0.0-2.0); EOSINOPHILS % (AUTO) 3.5 % (0.0-6.0); HEMATOCRIT 23 % (39-51); HEMOGLOBIN 7.8 g/dL (13.5-17.5); LYMPHOCYTES # (AUTO) 1.1 /CMM (0.8-4.8); LYMPHOCYTES % (AUTO) 10.7 % (20.0-44.0); MEAN CORPUSCULAR HGB CONC 34 g/dl (31.0-36.0); MEAN CORPUSCULAR VOLUME 90 fL (80-96); MONOCYTES # (AUTO) 0.7 /CMM (0.1-1.30); MONOCYTES % (AUTO) 7.1 % (2.0-12.0); NEUTROPHILS # (AUTO) 7.9 /CMM (1.8-8.9); NEUTROPHILS % (AUTO) 77.9 % (43.0-81.0); PLATELET COUNT (AUTO) 166 /CMM (150-450); RED BLOOD CELL COUNT(AUTO) 2.59 MIL/uL (4.5-6.0); WHITE BLOOD COUNT (AUTO) 10.2 K/uL (4.3-11.0)
--- NOTE | 2018-04-09 07:00 | NUR ---
BOX CAR WASHER NOTES RECEIVED PT IN BED, AWAKE. AT BEDSIDE. PT MOANING, SAYS HE IS IN PAIN. PT IS OUT OF RESTRAINTS. IV SITE NO S/SX INFECTION. ON TELE SR 70'S. PT NOT IN RESP DISTRESS. PER PT HAD BM LAST NIGHT THAT WAS GREENISH BLACK. PT IS NPO FOR EGD PROCEDURE. BED IN LOCKED/LOWEST POSITION. CALL LIGHT IN REACH. WILL CONT TO MONITOR PT.
[2018-04-09 07:02] LABS: CALCIUM, SERUM 8.3 mg/dL (8.5-10.1); CREATININE 1.1 mg/dL (0.6-1.3); MAGNESIUM 1.9 mg/dL (1.8-2.4); PHOSPHORUS 3.3 mg/dL (2.5-4.9); POTASSIUM 3.6 mmol/L (3.5-5.1)
[2018-04-09] MEDS: PANTOPRAZOLE 40 MG VIAL IV SCH ×2 (08:28→20:13)
[2018-04-09] MEDS: OXCARBAZEPINE 150 MG TABLET GT SCH ×2 (08:28→17:35)
[2018-04-09] MEDS: ACETAMINOPHEN 650 MG/20.3 ML UDC GT PRN ×2 (08:28→20:13)
[2018-04-09] MEDS ORDERED: FUROSEMIDE 40 MG/4 ML VIAL IV SCH (09:00)
--- NOTE | 2018-04-09 09:38 | NUR ---
MS RN NOTES PHARM REPORTED VANCO DOSAGE CHANGE ACCORDING TO VANCO TROUGH 21 TODAY
[2018-04-09] MEDS: VANCOMYCIN 1 GM in IV D5W 250 ML IV SCH (11:15)
[2018-04-09] MEDS: LORAZEPAM INJ 2 MG/ML VIAL IM PRN ×2 (12:58→22:07)
[2018-04-09] MEDS: GLUCERNA 1.2 1,000 ML BOTTLE GT PRN (16:20)
--- NOTE | 2018-04-09 18:29 | NUR ---
ms rn closing notes pt endorsed to pm shift for tami. at bedside. condom cath in place. gtf running with no s/sx of discomfort. iv site no s/sx infection. safety precautions in place. call light in reach. all needs attended to.
--- NOTE | 2018-04-09 19:30 | NUR ---
MS/RN OPENING NOTES PT RECEIVED WITH EYES OPEN. NON VERBAL. AT BEDSIDE. ON 2L O2 VIA NC, BREATHING EVEN AND UNLABORED. NO S/S OF ACUTE DISTRESS NOTED. IV TO RAC PATENT AND INTACT. IV TO LFA NOT WORKING AND WILL BE REMOVED. CONDOM CATH IN PLACE AND DRAINING TO GRAVITY. GT FEEDING RUNNING GLUCERNA AT 20ML/HR. BED IN LOW/LOCKED POSITION WITH CALL LIGHT IN REACH. PT CURRENTLY OFF BILATERAL WRIST RESTRAINTS. CALM AT THIS TIME. HOB ELEVATED WITH SIDE RAILS UPX3. WILL CONTINUE TO MONITOR
--- NOTE | 2018-04-09 20:15 | NUR ---
MS/RN NOTES PT NOTED WITH FACIAL GRIMACING AND MOANING. REQUESTING TYLENOL FOR PAIN. ADMINISTERED ORDERED
[2018-04-10] VITALS (7 sets, daily range): BP systolic 90–148; BP diastolic 56–91
[2018-04-10] MEDS: ALBUTEROL FS 2.5 MG/0.5 ML VIAL.NEB IH SCH ×4 (01:52→18:58)
[2018-04-10] MEDS: IPRATROPIUM NEB FS 0.5 MG/2.5 ML AMPUL.NEB IH SCH ×4 (01:52→18:58)
[2018-04-10] MEDS: ZOSYN IVPB 3.375 G in IV D5W 50ml IV SCH (06:03)
[2018-04-10] MEDS: ACETAMINOPHEN 650 MG/20.3 ML UDC GT PRN ×2 (06:40→15:28)
[2018-04-10 06:53] LABS: CALCIUM, SERUM 8.3 mg/dL (8.5-10.1); CREATININE 1.5 mg/dL (0.6-1.3); POTASSIUM 3.3 mmol/L (3.5-5.1)
[2018-04-10] MEDS: VANCOMYCIN 1 GM in IV D5W 250 ML IV SCH (07:11)
--- NOTE | 2018-04-10 07:21 | NUR ---
MS/RN CLOSING NOTES PT AWAKE, AT BEDSIDE. REMAINS ON 2L O2 VIA NC, BREATHING EVEN AND UNLABORED. IN NO ACUTE DISTRESS. WAS MOANING, ADMINISTERED PRN TYLENOL ORDERED. IV TO RAC PATENT AND INTACT. GT FEEDING PATENT AND INTACT. CURRENTLY ON HOLD FOR POSSIBLE EGD TODAY. CONDOM CATH IN PLACE AND DRAINING TO GRAVITY. OFF SOFT WRIST RESTRAINTS AT THIS TIME. PT IS CALM. BED REMAINS IN LOW/LOCKED POSITION WITH CALL LIGHT IN REACH AND BILATERAL UPPER SIDE RAILS IN PLACE. TURNED/REPOSITIONED Q2H, HEELS OFFLOADED. NO SIGNIFICANT CHANGES OVERNIGHT. ENDORSED TO DAY SHIFT RN DIANA.
--- NOTE | 2018-04-10 07:30 | NUR ---
BUSINESS PERFORMANCE ADVISOR NOTES RECEIVED PATIENT BED,ASLEEP BUT EASILY AWAKEN, A/O X1-2, NONVERBAL, NOT ON ANY FORM OF DISTRESS, BREATHING EVEN & UNLABORED, ON O2 @ 2LPM VIA NC. TOLERATING AND SATURATING WELL, IV LINE ON THE RAC G 20: INTACT & PATENT UPON FLUSHING. G-TUBE IN PLACE, PATENT UPON FLUSHING, WITH GTF OF GLUCERNA 1.2 AT 20 CC/HR- ON HOLD AT THIS TIME DUE TO PATIENT MIGHT UNDERGO EGD TODAY. NO S/S OF PAIN OR DISCOMFORT NOTED AT THIS TIME. SAFETY MEASURES OBSERVED AND MAINTAINED. SIDE RAILS UP, BED LOCKED AND IN LOWEST POSITION. AT BED SIDE. WILL CONTINUE TO MONITOR.
[2018-04-10] MEDS: OXCARBAZEPINE 150 MG TABLET GT SCH ×2 (08:34→17:20)
[2018-04-10] MEDS: PANTOPRAZOLE 40 MG VIAL IV SCH ×2 (08:34→20:53)
[2018-04-10 09:09] LABS: BASOPHILS # (AUTO) 0.1 /CMM (0.0-0.2); BASOPHILS % (AUTO) 0.9 % (0.0-2.0); EOSINOPHILS % (AUTO) 6.1 % (0.0-6.0); HEMATOCRIT 25 % (39-51); HEMOGLOBIN 8.5 g/dL (13.5-17.5); LYMPHOCYTES # (AUTO) 0.9 /CMM (0.8-4.8); MEAN CORPUSCULAR HGB CONC 34 g/dl (31.0-36.0); MEAN CORPUSCULAR VOLUME 91 fL (80-96); MONOCYTES # (AUTO) 0.6 /CMM (0.1-1.30); MONOCYTES % (AUTO) 7.2 % (2.0-12.0); NEUTROPHILS # (AUTO) 6.9 /CMM (1.8-8.9); NEUTROPHILS % (AUTO) 75.8 % (43.0-81.0); PLATELET COUNT (AUTO) 183 /CMM (150-450); RED BLOOD CELL COUNT(AUTO) 2.77 MIL/uL (4.5-6.0)
--- NOTE | 2018-04-10 09:30 | NUR ---
RN NOTES RELAYED FAMILY'S CONCERN ABOUT EGD SCHEDULE TO DR ROMAN. ALSO INFORM MD THAT FEEDING HAS BEEN ON HOLD IN LIEU OF THE SAID PREPARATION. MD INQUIRE ABOUT THE HGB LEVEL INFORMED THAT FROM 6.3 TO 8.5 TODAY. PER MD: WILL BE MONITORING FOR NOW AND FEEDING CAN NOW BE RESUMED. ORDER NOTED
[2018-04-10] MEDS ORDERED: POTASSIUM CHLORIDE 20 MEQ POWDER PACKET GT SCH (11:00)
--- NOTE | 2018-04-10 19:40 | NUR ---
MS RN NOTES, RECEIVED PATIENT BED, AWAKE NONVERBAL, BREATHING EVEN & UNLABORED, NO SOB/ACUTE DISTRESS NOTED AT THIS TIME, ON O2 @ 2LPM VIA NC. TOLERATING AND SATURATING WELL, IV LINE ON THE RAC G 20 S/L, INTACT AND PATENT, G-TUBE IN PLACE, NO RESIDUAL NOTED AT THIS TIME, GTF OF GLUCERNA 1.2 AT 40 CC/HR- TOLERATED INFUSING WELL AND TOLERATED WELL, NO S/S OF PAIN OR DISCOMFORT NOTED AT THIS TIME, SAFETY MEASURES OBSERVED AND MAINTAINED, SIDE RAILS UP, BED LOCKED AND IN LOWEST POSITION, FAMILY AT BED SIDE, WILL CONTINUE TO MONITOR CLOSELY.
--- NOTE | 2018-04-10 19:46 | NUR ---
RN NOTES ENDORSED FOR CONTINUITY OF CARE. NO ACUTE CHANGES WITHIN THE SHIFT. SAFETY MEASURES IN PLACE AT ALL TIME. ALL NURSING NEEDS ANTICIPATED AND MED. CALL LIGHT WITHIN EASY REACH AT ALL TIMES
[2018-04-10] MEDS: NYSTATIN TOP POWDER 15 GM BOTTLE TP SCH (21:00)
[2018-04-10] MEDS: LORAZEPAM INJ 2 MG/ML VIAL IM PRN (21:36)
--- NOTE | 2018-04-10 21:40 | NUR ---
RN MS NOTES, NYSTATIN POWDER TREATMENT NOT AVAILABLE IN THE OMNICE[facility], AND NON ADMINISTERED AT THIS TIME, CHARGE NURSE AND RN ARTIFICIAL LOG MACHINE OPERATOR AWARE.
[2018-04-11] MEDS: ALBUTEROL FS 2.5 MG/0.5 ML VIAL.NEB IH SCH ×4 (01:30→19:28)
[2018-04-11] MEDS: IPRATROPIUM NEB FS 0.5 MG/2.5 ML AMPUL.NEB IH SCH ×4 (01:30→19:28)
[2018-04-11] MEDS: LORAZEPAM INJ 2 MG/ML VIAL IM PRN ×2 (03:48→21:23)
[2018-04-11] MEDS: ACETAMINOPHEN 650 MG/20.3 ML UDC GT PRN ×3 (03:48→17:57)
[2018-04-11 04:00] VITALS: BP 139/94
[2018-04-11 06:28] LABS: BASOPHILS # (AUTO) 0.1 /CMM (0.0-0.2); BASOPHILS % (AUTO) 0.9 % (0.0-2.0); EOSINOPHILS % (AUTO) 5.8 % (0.0-6.0); HEMATOCRIT 24 % (39-51); HEMOGLOBIN 8.1 g/dL (13.5-17.5); LYMPHOCYTES # (AUTO) 1.1 /CMM (0.8-4.8); LYMPHOCYTES % (AUTO) 14.3 % (20.0-44.0); MEAN CORPUSCULAR HGB CONC 33 g/dl (31.0-36.0); MEAN CORPUSCULAR VOLUME 91 fL (80-96); MONOCYTES # (AUTO) 0.8 /CMM (0.1-1.30); MONOCYTES % (AUTO) 10.3 % (2.0-12.0); NEUTROPHILS # (AUTO) 5.4 /CMM (1.8-8.9); NEUTROPHILS % (AUTO) 68.7 % (43.0-81.0); PLATELET COUNT (AUTO) 190 /CMM (150-450); RED BLOOD CELL COUNT(AUTO) 2.68 MIL/uL (4.5-6.0); WHITE BLOOD COUNT (AUTO) 7.8 K/uL (4.3-11.0)
--- NOTE | 2018-04-11 06:28 | NUR ---
MS RN CLOSING NOTES, PATIENT BED, SLEEPING AT THIS TIME, BREATHING EVEN & UNLABORED, NO SOB/ACUTE DISTRESS NOTED AT THIS TIME, ON O2 @ 2LPM VIA NC. TOLERATING AND SATURATING WELL, IV LINE ON THE RAC G 20 S/L, INTACT AND PATENT, G-TUBE IN PLACE, NO RESIDUAL NOTED AT THIS TIME, GTF OF GLUCERNA 1.2 AT 40 CC/HR- TOLERATED INFUSING WELL AND TOLERATED WELL, NO S/S OF PAIN OR DISCOMFORT NOTED, NO ACUTE DISTRESS NOTED, SIDE RAILS UP, BED LOCKED AND IN LOWEST POSITION, AT BEDSIDE AT THIS TIME, WILL ENDORSE TO ONCOMING NURSE FOR CONTINUITY OF CARE.
[2018-04-11 06:40] LABS: CALCIUM, SERUM 8.7 mg/dL (8.5-10.1); CREATININE 1.6 mg/dL (0.6-1.3); POTASSIUM 3.2 mmol/L (3.5-5.1)
[2018-04-11 08:00] VITALS: BP 140/83
[2018-04-11] MEDS ORDERED: IV D5/0.45 NACL 1,000 ML IV SCH (08:00)
--- NOTE | 2018-04-11 08:03 | NUR ---
RN OPENING NOTES RECEIVED PATIENT IN BED RESTING. NONVERBAL, RESPONSIVE. ON 2LPM OXYGEN VIA NC, TOLERATING WELL. AT BEDSIDE. NO ACUTE DISTRESS, NO SOB. NO S/S OF PAIN OR DISCOMFORT. IV ACCESS INTACT AND PATENT. GTUBE IN PLACE. CONDOM CATHETER IN PLACE. KEPT PATIENT SAFE AND COMFORTABLE. BED IN LOW/LOCKED POSITION, SIDERAILS UPX2, HOB ELEVATED. CALL LIGHT IN REACH. WILL CONTINUE TO MONIOTR ACCORDINGLY.
[2018-04-11] MEDS: OXCARBAZEPINE 150 MG TABLET GT SCH ×2 (08:36→16:29)
[2018-04-11] MEDS: GLUCERNA 1.2 1,000 ML BOTTLE GT PRN (08:38)
[2018-04-11] MEDS: PANTOPRAZOLE 40 MG VIAL IV SCH ×2 (08:48→21:08)
[2018-04-11] MEDS: NYSTATIN TOP POWDER 15 GM BOTTLE TP SCH ×2 (08:51→21:09)
--- NOTE | 2018-04-11 09:51 | NUR ---
RN NOTES DR ULLOA AT BEDSIDE WITH ORDERS TO STOP IVF. READ BACK ORDERS VERIFIED
--- NOTE | 2018-04-11 10:40 | NUR ---
rn notes noticed redness on sacrum. wound consult ordered. photo was taken by night RN.
[2018-04-11] MEDS ORDERED: POTASSIUM CHLORIDE 20 MEQ POWDER PACKET GT SCH (11:00)
[2018-04-11 12:00] VITALS: BP 159/97
[2018-04-11 16:00] VITALS: BP 153/88
[2018-04-11] MEDS: Potassium Chloride 40 MEQ in IV D5W 1,000 ML IV PRN (17:03)
--- NOTE | 2018-04-11 18:56 | NUR ---
RN CLOSING NOTES PATIENT IN STABLE CONDITION AT BEDSIDE. ALL NEEDS ATTENDED AND PROVIDED. ALL DUE MADICATIONS GIVEN ORDERED. TURNED AND REPOSITIONED PATIENT EVERY 2 HRS NEEDED. KEPT PATIENT SAFE AND COMFORTABLE. BED IN LOW/LOCKED POSITION, SIDERAILS UPX2, HOB ELEVATED. CALL LIGHT IN REACH. WILL CONTINUE TO MONIOTR ACCORDINGLY.
--- NOTE | 2018-04-11 19:46 | NUR ---
MS RN NOTE: RECEIVED PT ON BED ASLEEP BUT AROUSES EASILY TO VERBAL AND TACTILE STIMULI. FAMILY AT BEDSIDE. NO ACUTE DISTRESS NOTED. NO COMPLAINTS OF PAIN OR DISCOMFORT AT THIS TIME. NO SOB NOTE. GT INTACT AND PATENT, NO RESIDUAL NOTED AT THIS TIME. CONDOM CATH INTACT, DRAINING WELL. IV ON RIGHT ANTECUBITAL #20 INTACT AND PATENT. KEPT CLEAN, DRY AND COMFORTABLE. SAFETY AND FALL PRECAUTIONS OBSERVED AND MAINTAINED. WILL CONTINUE TO MONITOR PT.
[2018-04-11 20:00] VITALS: BP 141/89
[2018-04-12] MEDS: ALBUTEROL FS 2.5 MG/0.5 ML VIAL.NEB IH SCH ×3 (01:19→13:11)
[2018-04-12] MEDS: IPRATROPIUM NEB FS 0.5 MG/2.5 ML AMPUL.NEB IH SCH ×3 (01:19→13:11)
[2018-04-12 04:00] VITALS: BP 146/97
[2018-04-12 06:15] LABS: BASOPHILS # (AUTO) 0.1 /CMM (0.0-0.2); BASOPHILS % (AUTO) 0.7 % (0.0-2.0); EOSINOPHILS % (AUTO) 6.9 % (0.0-6.0); HEMATOCRIT 25 % (39-51); LYMPHOCYTES # (AUTO) 1.1 /CMM (0.8-4.8); LYMPHOCYTES % (AUTO) 13.7 % (20.0-44.0); MEAN CORPUSCULAR HGB CONC 33 g/dl (31.0-36.0); MEAN CORPUSCULAR VOLUME 92 fL (80-96); MONOCYTES # (AUTO) 0.7 /CMM (0.1-1.30); MONOCYTES % (AUTO) 8.7 % (2.0-12.0); NEUTROPHILS # (AUTO) 5.4 /CMM (1.8-8.9); PLATELET COUNT (AUTO) 192 /CMM (150-450); RED BLOOD CELL COUNT(AUTO) 2.68 MIL/uL (4.5-6.0); WHITE BLOOD COUNT (AUTO) 7.8 K/uL (4.3-11.0)
[2018-04-12] MEDS: Potassium Chloride 40 MEQ in IV D5W 1,000 ML IV PRN (06:19)
[2018-04-12 06:23] LABS: CALCIUM, SERUM 8.4 mg/dL (8.5-10.1); CREATININE 1.4 mg/dL (0.6-1.3); POTASSIUM 3.7 mmol/L (3.5-5.1)
--- NOTE | 2018-04-12 06:47 | NUR ---
MS RN NOTE: NO CHANGES NOTED THROUGHOUT THE SHIFT. NO APPARENT DISTRESS NOTED. NO FACIAL GRIMACING OR ANY SIGNS OF PAIN NOTED. AT BEDSIDE. PT KEPT NPO POST MIDNIGHT. IV ON RIGHT WRIST #22 INTACT AND PATENT. CONDOM CATH IN PLACED, DRAINED 400ML OF CLEAR YELLOW URINE OUTPUT. KEPT CLEAN, DRY AND COMFORTABLE. SAFETY AND FALL PRECAUTIONS OBSERVED AND MAINTAINED. WILL CONTINUE TO MONITOR PT. Addendum: 04/12/18 at 0654 by BEN PRAOD RN WILL ENDORSE TO DAY SHIFT RN FOR CONTINUITY OF CARE.
[2018-04-12 08:00] VITALS: BP 143/93
[2018-04-12] MEDS: OXCARBAZEPINE 150 MG TABLET GT SCH ×2 (09:00→17:00)
[2018-04-12] MEDS: PANTOPRAZOLE 40 MG VIAL IV SCH (09:00)
[2018-04-12] MEDS: NYSTATIN TOP POWDER 15 GM BOTTLE TP SCH (09:00)
--- NOTE | 2018-04-12 10:20 | NUR ---
WOUND CARE CONSULT: PT PRESENTS WITH FECAL INCONTINENCE AND BLANCHABLE REDNESS TO BONY SACRAL AREA, PRESENT ON ADMISSION. RECOMMENDATIONS MADE FOR SKIN PROTECTION AND CARE. DISCUSSED WITH NURSING STAFF. WILL SEE FIDELIA. PT ON HONG ISOFLEX LOW AIRLOSS BED. IN AGREEMENT WITH PLAN OF CARE. Addendum: 04/12/18 at 1022 by CALI MCCLOUD WNDNU Amended: Links added.
--- NOTE | 2018-04-12 11:41 | NUR ---
RECEIVED PATIENT IN BED RESTING. NONVERBAL, RESPONSIVE. ON 2LPM OXYGEN VIA NC, TOLERATING WELL. AT BEDSIDE. NO ACUTE DISTRESS, NO SOB. NO S/S OF PAIN OR DISCOMFORT. IV ACCESS INTACT AND PATENT. GTUBE IN PLACE. CONDOM CATHETER IN PLACE. KEPT PATIENT SAFE AND COMFORTABLE. BED IN LOW/LOCKED POSITION, SIDERAILS UPX2, HOB ELEVATED. CALL LIGHT IN REACH. WILL CONTINUE TO MONIOTR and treat.
[2018-04-12 12:00] VITALS: BP 140/84
--- NOTE | 2018-04-12 13:53 | NUR ---
patient has been picked up for EGD procedure.
--- NOTE | 2018-04-12 15:30 | NUR ---
nursing notes patient back from EGD patient reconnected to fluids and tube feeding has been restarted per doctor's order.
[2018-04-12 16:00] VITALS: BP 159/92
--- NOTE | 2018-04-12 16:44 | NUR ---
called SNF and gave report to nurse Grimm. Nurse fully verbalized understanding of report.
--- NOTE | 2018-04-12 18:02 | NUR ---
nursing notes patient discharged at 1800 [facility] ambulance in stable condition.
== END 2018-04-12 18:00 | DRG 377 ==
LOC: ER 11:23 → TELE1 12:39 → MEDSG1 04-09 08:48
PROVIDERS: ADMIT Internal Medicine; ATTEND Internal Medicine
PROC: 30233N1 Transfusion of Nonautologous Red Blood Cells into Peripheral Vein, Percutaneous Approach (ICD-10-PCS; principal; 2018-04-08)
PROC: 0DJ08ZZ Inspection of Upper Intestinal Tract, Via Natural or Artificial Opening Endoscopic (ICD-10-PCS; 2018-04-12)
DX: K92.2 Gastrointestinal hemorrhage, unspecified (principal); J18.9 Pneumonia, unspecified organism; G93.41 Metabolic encephalopathy; I13.0 Hypertensive heart and chronic kidney disease with heart failure and stage 1 through stage 4 chronic kidney disease, or unspecified chronic kidney disease; J96.11 Chronic respiratory failure with hypoxia; E87.0 Hyperosmolality and hypernatremia; N17.9 Acute kidney failure, unspecified; D62 Acute posthemorrhagic anemia; J90 Pleural effusion, not elsewhere classified; I50.32 Chronic diastolic (congestive) heart failure; N18.9 Chronic kidney disease, unspecified; E11.22 Type 2 diabetes mellitus with diabetic chronic kidney disease; Z93.1 Gastrostomy status; E78.5 Hyperlipidemia, unspecified; E87.6 Hypokalemia; K21.0 Gastro-esophageal reflux disease with esophagitis; Z87.891 Personal history of nicotine dependence; D50.0 Iron deficiency anemia secondary to blood loss (chronic); Z79.1 Long term (current) use of non-steroidal anti-inflammatories (NSAID); K44.9 Diaphragmatic hernia without obstruction or gangrene; I69.821 Dysphasia following other cerebrovascular disease; Z79.84 Long term (current) use of oral hypoglycemic drugs
CPT/HCPCS: 36415; 36600; 71045-TC; 80048-TC; 80076-TC; 80202-TC; 82803-TC; 82962-TC; 83690-TC; 83735-TC; 84100-TC; 84484-TC; 85025-TC; 85730-TC; 86850-TC; 86921-TC; 87081-TC; A4349; A4606; C9113; G0378; J1940; J2060; J2543; J3370; J3480; J3490; J7030; J7040; J7050; J7060; J7070; P9016-BL; Z7610

== ENCOUNTER 2018-06-09 11:58 | Emergency (ER) | payer MEDICARE, MEDICAID ==
[~2018-06-09] VITALS: Ht 175.3 cm; Wt 65.8 kg
[~2018-06-09 11:58] MED LIST changes: +ACET-2605 GT; -AMLO5TAB7 GT; +AMLO5TAB9 GT; +ASCO500T9 GT; -BISA10SU61 RC; -CLOP75TA15 GT; +LACT10SO GT; -LORA-259 PO; +LORA2VIA11 IM; -MAGN400O21 GT; -NUT.237L25 GT; +NUT.237L30 GT; -ONDA4TAB5 GT; +OXCA300T15 GT; -OXCA300T4 PO; +PANT40SU2 GT; -PANT40TA4 GT; -SENN-168 GT; +ZINC220C8 GT
--- NOTE | 2018-06-09 11:58 | NUR ---
RENU FROM [facility] FOR G TUBE REPLACEMENT , TO ER BED 11, HOOKED TO MONITOR, AWAITING MD SHELL
--- NOTE | 2018-06-09 13:02 | NUR ---
MEDICAL INSURANCE CLERK DEGRASSE AT BEDSIDE
[2018-06-09] MEDS ORDERED: DIATR MEGLU/DIATRIZOATE SODIUM 30 ML BOTTLE (GASTROGRAPHIN) ONE (13:29)
--- NOTE | 2018-06-09 14:46 | NUR ---
PT IN BED COMFORTABLE, SISTER AT BEDSIDE. HOOKED TO MONITOR, WILL CONTINUE TO MONITOR
--- NOTE | 2018-06-09 16:03 | NUR ---
CALLED [facility] FOR TRANSPORT ETA OF 1714 WAS GIVEN.
--- NOTE | 2018-06-09 17:21 | NUR ---
Patient discharged to [facility] in stable condition. WILL BE BROUG[facility] TO [facility]. Written and verbal after care instructions given. verbalizes understanding of instruction. INFORMED EMILY OF [facility] THAT PT IS BEING BROUGHT BACK.
[2018-06-09 17:23] VITALS: BP 132/76
[2018-08-01] MEDS ORDERED: HYDR-4354 PO (13:01)
[2018-08-01] MEDS ORDERED: LEVO500T75 GT (13:01)
[2018-08-01] MEDS ORDERED: MUPI22OI7 MC (13:07)
== END 2018-06-09 17:24 | disposition home or self-care (01) ==
LOC: ER 12:00
DX: Z93.1 Gastrostomy status (principal); I10 Essential (primary) hypertension; E78.00 Pure hypercholesterolemia, unspecified; E11.9 Type 2 diabetes mellitus without complications; M62.81 Muscle weakness (generalized); E78.5 Hyperlipidemia, unspecified; Z86.73 Personal history of transient ischemic attack (TIA), and cerebral infarction without residual deficits; Z91.030 Bee allergy status
CPT/HCPCS: 43762; 74018; 99284; A4606; Q9963

== ENCOUNTER 2018-06-12 05:45 | Emergency (ER) | payer MEDICARE, MEDICAID ==
[~2018-06-12] VITALS: Ht 172.7 cm; Wt 65.3 kg
--- NOTE | 2018-06-12 06:00 | NUR ---
PT BIBPA C/O GTUBE REMOVAL X1 DAY. NO ACUTE DISTRESS NOTED AT THIS TIME. VITAL SIGNS STABLE. WILL CONTINUE TO MONITOR
--- NOTE | 2018-06-12 06:05 | NUR ---
AT BEDSIDE FOR GTUBE REPLACEMENT
[2018-06-12] MEDS ORDERED: DIATR MEGLU/DIATRIZOATE SODIUM 30 ML BOTTLE (GASTROGRAPHIN) PO ONE (06:30)
--- NOTE | 2018-06-12 06:30 | NUR ---
RADIOLOGY AT BEDSIDE FOR XRAY
--- NOTE | 2018-06-12 07:06 | NUR ---
TRANSPORT 90 MIN ETA FROM 0700 (0830). TRIP # [id number]
--- NOTE | 2018-06-12 07:26 | NUR ---
REPORT RECEIVED FROM MARLON GUADALUPE FOR DIANA
--- NOTE | 2018-06-12 07:57 | NUR ---
REPORT GIVEN TO ALEC RN OF [facility]
--- NOTE | 2018-06-12 09:06 | NUR ---
Patient discharged to [facility] unit 306 in stable condition. Pt will be brought back to [facility]. at bedside. Written and verbal after care instructions given. verbalizes understanding of instruction.
[2018-06-12 09:09] VITALS: BP 158/95
[2018-08-01] MEDS ORDERED: HYDR-4354 PO (13:01)
[2018-08-01] MEDS ORDERED: LEVO500T75 GT (13:01)
[2018-08-01] MEDS ORDERED: MUPI22OI7 MC (13:07)
== END 2018-06-12 09:09 ==
LOC: ER 05:47
DX: K94.23 Gastrostomy malfunction (principal); R47.02 Dysphasia; I10 Essential (primary) hypertension; E11.9 Type 2 diabetes mellitus without complications; M62.81 Muscle weakness (generalized); E78.5 Hyperlipidemia, unspecified; Z86.73 Personal history of transient ischemic attack (TIA), and cerebral infarction without residual deficits; Z91.030 Bee allergy status
CPT/HCPCS: 74018; Q9963

== ENCOUNTER 2018-06-16 09:14 | Emergency (ER) | payer MEDICARE, MEDICAID ==
[~2018-06-16] VITALS: Ht 165.1 cm; Wt 74.8 kg
[2018-06-16] MEDS ORDERED: DIATR MEGLU/DIATRIZOATE SODIUM 30 ML BOTTLE (GASTROGRAPHIN) ONE (09:54)
--- NOTE | 2018-06-16 10:52 | NUR ---
ANAI FROM [facility], FOR G TUBE REPLACEMENT
--- NOTE | 2018-06-16 10:53 | NUR ---
GTUBE REPLACED, XRAY CONFIRMATION, Patient discharged to home in stable condition. Written and verbal after care instructions given. Patient verbalizes understanding of instruction.
[2018-06-16 11:01] VITALS: BP 155/91
[2018-08-01] MEDS ORDERED: HYDR-4354 PO (13:01)
[2018-08-01] MEDS ORDERED: LEVO500T75 GT (13:01)
[2018-08-01] MEDS ORDERED: MUPI22OI7 MC (13:07)
== END 2018-06-16 11:02 ==
LOC: ER 09:17
DX: Z93.1 Gastrostomy status (principal); I10 Essential (primary) hypertension; E11.9 Type 2 diabetes mellitus without complications; M62.81 Muscle weakness (generalized); E78.5 Hyperlipidemia, unspecified; Z86.73 Personal history of transient ischemic attack (TIA), and cerebral infarction without residual deficits; Z91.030 Bee allergy status
CPT/HCPCS: 43762; 74018; 99285; A4606; A6403; Q9963

== ENCOUNTER 2018-07-27 18:39 | Inpatient (IN) | payer MEDICARE, MEDICAID ==
[~2018-07-27] VITALS: Ht 167.6 cm; Wt 60.3 kg
--- NOTE | 2018-07-27 19:00 | NUR ---
PT BIB [facility] FOR G TUBE DISLODGEMENT. PT AOX1. RESPONDS TO PAINFUL STIMULI. FAMILY AT BEDSIDE. WILL CONTINUE TO MONITOR.
[2018-07-27 19:27] LABS: BASOPHILS # (AUTO) 0.1 /CMM (0.0-0.2); BASOPHILS % (AUTO) 0.9 % (0.0-2.0); EOSINOPHILS % (AUTO) 0.6 % (0.0-6.0); HEMATOCRIT 29 % (39-51); HEMOGLOBIN 9.2 g/dL (13.5-17.5); LYMPHOCYTES # (AUTO) 1.1 /CMM (0.8-4.8); LYMPHOCYTES % (AUTO) 11.5 % (20.0-44.0); MEAN CORPUSCULAR HGB CONC 32 g/dl (31.0-36.0); MEAN CORPUSCULAR VOLUME 86 fL (80-96); MONOCYTES # (AUTO) 0.7 /CMM (0.1-1.30); MONOCYTES % (AUTO) 7.3 % (2.0-12.0); NEUTROPHILS # (AUTO) 7.6 /CMM (1.8-8.9); NEUTROPHILS % (AUTO) 79.7 % (43.0-81.0); PLATELET COUNT (AUTO) 379 /CMM (150-450); RED BLOOD CELL COUNT(AUTO) 3.33 MIL/uL (4.5-6.0); WHITE BLOOD COUNT (AUTO) 9.5 K/uL (4.3-11.0)
--- NOTE | 2018-07-27 19:27 | NUR ---
RADIOLOGY AT BEDSIDE FOR XRAY
[2018-07-27 19:37] LABS: CALCIUM, SERUM 8.8 mg/dL (8.5-10.1); CREATININE 1.4 mg/dL (0.6-1.3); POTASSIUM 4.1 mmol/L (3.5-5.1)
[2018-07-27] MEDS ORDERED: HYDR-4384 PO (20:03)
[2018-07-27] MEDS ORDERED: FERR220S18 GT (20:03)
[2018-07-27] MEDS ORDERED: POTA-10 GT (20:03)
[2018-07-27] MEDS ORDERED: FURO-144 GT (20:03)
--- NOTE | 2018-07-27 20:11 | NUR ---
Cinthya hutchison in [place] - 07/27/18 at 2012 by EMPASCUAL 109 TELE
--- NOTE | 2018-07-27 20:11 | NUR ---
BED 109 M/S
--- NOTE | 2018-07-27 20:27 | NUR ---
REPORT GIVEN TO ANAYELI MARTIN FOR DIANA
--- NOTE | 2018-07-27 20:30 | NUR ---
LISSA RN OPENING NOTES RECEIVED REPORT FROM MANAGER NEW PRODUCT HOWARD. RE[place]. PATIENT IS A/A/OX2 WITH BEDSIDE. PATIENT HAS NO SOB, ON RA WITH SPO2 OF 97%. V/S ARE TAKEN, SKIN ASSESSMENT IS DONE AND PICTURES ARE IN THE CHART. PATIENT HAS NON PITTING EDEMA ON RIGHT ANKLE. LEFT AC G20 IV LINE IS PATIENT AND INTACT,PATIENT IS COMPLAINING OF GENERALIZED PAIN. ALL SAFETY MEASURES ARE IMPLEMENTED, BED IN LOW, LOCKED POSITION, CALL LIGHT IN REACH. WILL CONTINUE TO MONITOR PATIENT CLOSELY.
[2018-07-27 21:00] VITALS: BP 158/77
[2018-07-27] MEDS ORDERED: CLONIDINE HCL 0.2MG/24H PTWK 1 EA PATCH TD SCH (22:00)
[2018-07-27] MEDS ORDERED: ACETAMINOPHEN 650 MG/SUPP.RECT RC PRN (22:00)
[2018-07-27] MEDS ORDERED: ALBUTEROL FS 2.5 MG/0.5 ML VIAL.NEB IH PRN (22:00)
[2018-07-27] MEDS ORDERED: IPRATROPIUM NEB FS 0.5 MG/2.5 ML AMPUL.NEB IH PRN (22:00)
[2018-07-27] MEDS ORDERED: Z GUARD REMEDY 2 OZ OINT TP PRN (22:00)
[2018-07-27] MEDS ORDERED: ONDANSETRON HCL/PF 4 MG/2 ML VIAL IVP PRN (22:00)
--- NOTE | 2018-07-27 22:00 | NUR ---
RN NOTES CLONIDINE HCL TD QWE AR 2200 WAS NOT ADMINISTERED DUE TO MEDICATION BEING ADMINISTERED AT THE [facility] THIS TODAY MORNING.
[2018-07-27] MEDS: IV D5/0.45 NACL 1,000 ML IV PRN (23:30)
[2018-07-27] MEDS: MORPHINE SULFATE INJ 2 MG/ML DISP.SYRIN IV PRN (23:31)
[2018-07-28] MEDS: ALBUTEROL FS 2.5 MG/0.5 ML VIAL.NEB IH SCH ×4 (01:30→19:41)
[2018-07-28] MEDS: IPRATROPIUM NEB FS 0.5 MG/2.5 ML AMPUL.NEB IH SCH ×4 (01:30→19:41)
--- NOTE | 2018-07-28 03:30 | NUR ---
RN NOTES PATIENT HAS REMOVED HIS IV LINE WITH HIS TEETH AND BIT HIS LEFT FOREARM AND HAS BITE BARKER WITH BLEEDING. MD PETERS NOTIFIED AND NEW ORDER OF RESTRAINTS ARE IN PLACE. WILL CONTINUE TO MONITOR PATIENT CLOSELY.
[2018-07-28] MEDS: LORAZEPAM INJ 2 MG/ML VIAL IV PRN ×2 (03:35→20:58)
[2018-07-28 04:00] VITALS: BP 154/69
[2018-07-28] MEDS: MORPHINE SULFATE INJ 2 MG/ML DISP.SYRIN IV PRN (05:17)
[2018-07-28 06:34] LABS: BASOPHILS % (AUTO) 0.4 % (0.0-2.0); EOSINOPHILS % (AUTO) 0.5 % (0.0-6.0); HEMATOCRIT 27 % (39-51); HEMOGLOBIN 9.2 g/dL (13.5-17.5); LYMPHOCYTES # (AUTO) 0.9 /CMM (0.8-4.8); LYMPHOCYTES % (AUTO) 10.3 % (20.0-44.0); MEAN CORPUSCULAR HGB CONC 34 g/dl (31.0-36.0); MEAN CORPUSCULAR VOLUME 86 fL (80-96); MONOCYTES # (AUTO) 0.7 /CMM (0.1-1.30); MONOCYTES % (AUTO) 7.2 % (2.0-12.0); NEUTROPHILS # (AUTO) 7.4 /CMM (1.8-8.9); NEUTROPHILS % (AUTO) 81.6 % (43.0-81.0); PLATELET COUNT (AUTO) 344 /CMM (150-450); WHITE BLOOD COUNT (AUTO) 9.1 K/uL (4.3-11.0)
[2018-07-28 06:56] LABS: ALBUMIN 1.6 g/dL (3.4-5.0); BILIRUBIN,TOTAL 0.3 mg/dL (0.2-1.0); CALCIUM, SERUM 8.7 mg/dL (8.5-10.1); CREATININE 1.3 mg/dL (0.6-1.3); MAGNESIUM 2.2 mg/dL (1.8-2.4); PHOSPHORUS 4.1 mg/dL (2.5-4.9); POTASSIUM 4.2 mmol/L (3.5-5.1); TOTAL PROTEIN, SERUM 6.9 g/dL (6.4-8.2)
[2018-07-28 08:00] VITALS: BP 121/68
[2018-07-28] MEDS: FUROSEMIDE 40 MG/4 ML VIAL IV SCH (09:19)
[2018-07-28] MEDS: PANTOPRAZOLE 40 MG VIAL IV SCH (09:20)
[2018-07-28 12:00] VITALS: BP 121/68
[2018-07-28] MEDS: MORPHINE SULFATE INJ 4 MG/ML DISP.SYRIN IV PRN ×3 (12:46→22:35)
[2018-07-28] MEDS ORDERED: MORPHINE SULFATE INJ 4 MG/ML DISP.SYRIN IV PRN (14:00)
--- NOTE | 2018-07-28 14:00 | NUR ---
POSSIBLE G-TUBE PLACEMENT TODAY. AT BEDSIDE.
[2018-07-28 14:17] LABS: ABG BASE EXCESS 7.1 mmol/L; ABG OXYGEN SATURATION 94.4 % (92.0-98.5); ABG PCO2 46.1 mmHg (35.0-45.0); ABG PH 7.457 (7.350-7.450); ABG PO2 75.1 mmHg (75.0-100.0); AaDO2 70.1 mmHg; COHb 1.5 % (0.5-1.5); MetHb 0.6 % (0.0-1.5); O2Hb 92.4 % (94.0-97.0); SITE, ABG Right Radial; VENT MODE, BG NASAL CANNULA
[2018-07-28] MEDS: IV D5/0.45 NACL 1,000 ML IV PRN (15:15)
[2018-07-28 16:00] VITALS: BP 157/93
--- NOTE | 2018-07-28 17:00 | NUR ---
obtained consent for thoracentesis
--- NOTE | 2018-07-28 18:00 | NUR ---
IV ASSESS REMOVED DUE TO SWELLING. ICE PACK APPLIED AND ARM ELEVATED
--- NOTE | 2018-07-28 19:00 | NUR ---
NEW IV LINE APPLIED TO LEFT INDEX G22
--- NOTE | 2018-07-28 19:00 | NUR ---
PATIENT IN BED, AT BEDSIDE. NO CHANGES IN CONDITION THROUGHOUT THE SHIFT. LEFT WRIST SOFT RESTRAIN TEMPORARILY RELEASED. NEEDS ATTENDED, PAIN MEDICATION GIVEN. SAFETY PRECAUTIONS IN PLACE , CALL LIGHT WITHIN REACH. WILL ENDORSE TO NEXT SHIFT FOR DIANA/
--- NOTE | 2018-07-28 19:10 | NUR ---
RN MS OPENING NOTES RECEIVED PATIENT IN BED AWAKE ALERT AND ORIENTED X1, ON 2L VIA NC, RESPIRATIONS EVEN AND UNLABORED WITH EQUAL RISE AND FALL OF CHEST, APPEARS TO BE FREE OF ANY PAIN OR DISCOMFORT, NO MOANS OR FACIAL GRIMACING PRESENT, CURRENTLY AT BEDSIDE, LEFT WRIST SOFT RESTRAINT CURRENTLY IS RELEASED, LEFT FA NOTED WITH SLIGHT SWELLING D/T PREVIOUS IV SITE, COLOR WNL, SITE IS BEING ICED, IV SITE TO LEFT INDEX #22G INTACT AND PATENT, NO REDNESS, NO INFILTRATION PRESENT, SAFETY PRECAUTIONS IN PLACE, LOW BED AND LOCKED, CALL LIGHT KEPT WITHIN REACH, ALL NEEDS ATTENDED WILL CONTINUE TO MONITOR AND ADDRESS NEEDS.
[2018-07-28 20:00] VITALS: BP 135/82
--- NOTE | 2018-07-28 20:58 | NUR ---
RN MS NOTES NOTED WITH EPISODE OF AGITATION ATTEMPTING TO BITE OFF IV SITE, FAMILY AT BEDSIDE, PER REQUESTING FOR ATIVAN, PRN ATIVAN GIVEN 0.5ML GIVEN ORDERED REST WASTED AND VERRIFIED WITH ANOTHER RN.
--- NOTE | 2018-07-28 22:39 | NUR ---
RN MS NOTES NOTED PATIENT WITH RESTLESSNESS, FACIAL GRIMACING, APPEARS TO BE UNCOMFORTABLE, PER FAMILY REQUESTING FOR MORPHINE. NOTED CHANGE IN VS VS WNL 147/90,86,18,100% PRN MORPHINE GIVEN ORDERED 0.75ML GIVEN REST WASTED AND VERIFIED WITH ANOTHER RN. WILL CONTINUE TO MONITOR FOR EFFECTIVENESS.
[2018-07-29] MEDS: IPRATROPIUM NEB FS 0.5 MG/2.5 ML AMPUL.NEB IH SCH ×4 (01:41→19:17)
[2018-07-29] MEDS: ALBUTEROL FS 2.5 MG/0.5 ML VIAL.NEB IH SCH ×4 (01:41→19:17)
[2018-07-29 04:00] VITALS: BP 150/96
[2018-07-29 06:19] LABS: CALCIUM, SERUM 8.8 mg/dL (8.5-10.1); CREATININE 1.2 mg/dL (0.6-1.3); POTASSIUM 3.9 mmol/L (3.5-5.1)
[2018-07-29 06:30] LABS: BASOPHILS % (AUTO) 0.5 % (0.0-2.0); EOSINOPHILS % (AUTO) 0.4 % (0.0-6.0); HEMATOCRIT 29 % (39-51); HEMOGLOBIN 9.3 g/dL (13.5-17.5); LYMPHOCYTES # (AUTO) 0.9 /CMM (0.8-4.8); LYMPHOCYTES % (AUTO) 11.4 % (20.0-44.0); MEAN CORPUSCULAR HGB CONC 33 g/dl (31.0-36.0); MEAN CORPUSCULAR VOLUME 86 fL (80-96); MONOCYTES # (AUTO) 0.7 /CMM (0.1-1.30); MONOCYTES % (AUTO) 8.4 % (2.0-12.0); NEUTROPHILS # (AUTO) 6.3 /CMM (1.8-8.9); NEUTROPHILS % (AUTO) 79.3 % (43.0-81.0); PLATELET COUNT (AUTO) 337 /CMM (150-450); RED BLOOD CELL COUNT(AUTO) 3.33 MIL/uL (4.5-6.0)
--- NOTE | 2018-07-29 06:30 | NUR ---
RN MS CLOSING NOTES PATIENT IN BED AWAKE ALERT AND ORIENTED X1, ON 2L VIA NC, RESPIRATIONS EVEN AND UNLABORED WITH EQUAL RISE AND FALL OF CHEST, APPEARS TO BE FREE OF ANY PAIN OR DISCOMFORT, NO MOANS OR FACIAL GRIMACING PRESENT, PATIENT SLEPT WELL, LEFT WRIST SOFT RESTRAINT CURRENTLY IS IN PLACE PULSES PALPABLE, SKIN WNL IV SITE TO LEFT INDEX #22G INTACT AND PATENT, NO REDNESS, NO INFILTRATION PRESENT,IVF RUNNING SAFETY PRECAUTIONS IN PLACE, LOW BED AND LOCKED, CALL LIGHT KEPT WITHIN REACH, WOUND CARE PROVIDED TO SACRAL AND OFFLOADED FREQUENT REPOSITIONING PROVIDED, HEELS OFFLOADED WITH PILLOWS. ALL NEEDS ATTENDED WILL CONTINUE TO MONITOR AND ADDRESS NEEDS AND ENDORSE TO NEXT SHIFT. PATIENT REMAINS COMFORTABLE.
--- NOTE | 2018-07-29 07:00 | NUR ---
RN AM SHIFT NOTE PATIENT ALERT X1. IN BED AT SIDE. PATIENT ON RESTRAINT FOR LEFT , PULLING OUT G TUBE X7 TIMES. IV PATENT AND INTACT, CONSENTS SIGNED AND FAMILY AWARE OF PROCEDURES. CONDOM CATH PATENT AND DRAINING. VITALS STABLE, AWATING PROCEDURES FOR THORACENTESIS AND BODY FLUID WELL PEG TUBE PLACEMENT.
--- NOTE | 2018-07-29 07:30 | NUR ---
RN AM SHIFT NOTE RECIEVED PATIENT FROM NIGHT NURSE, CONFUSED BUT ALERT TO SELF AND SITUATION. IN BED AMBULATE WITH ASSIST, BED ALARM ON AND SAFETY MEASURES IN PLACE. EYE DROPS ORDERED FROM THE PHARMACY FOR [facility] AND PICKED UP BY NURSE. CONTINUE TO MONITOR. Addendum: 07/29/18 at 1227 by SHENA TIERNEY RN JENA MOTTA
[2018-07-29 08:00] VITALS: BP 154/88
[2018-07-29] MEDS: FUROSEMIDE 40 MG/4 ML VIAL IV SCH (08:15)
[2018-07-29] MEDS: PANTOPRAZOLE 40 MG VIAL IV SCH (08:15)
--- NOTE | 2018-07-29 08:55 | NUR ---
WOUND CARE CONSULT: PT PRESENTS WITH STAGE 3 ULCER TO SACRUM, LEFT ARM WOUNDS AND LEFT CHEST RAISED FIRM AREA, PRESENT ON ADMISSION. RECOMMEND SURGICAL CONSULT FOR ALL ABOVE. DISCUSSED LEFT CHEST WITH DR CHI. RECOMMENDATIONS MADE FOR SKIN PROTECTION AND WOUND CARE. PT ON HONG ISOFLEX LOW AIRLOSS BED. PER NURSING STAFF, PT HAS HISTORY OF BITING HIS ARM. CLOSED G TUBE SITE NOTED. WILL SEE PRN. CURRENT MELANY SCORE IS 10. IN AGREEMENT WITH PLAN OF CARE. Addendum: 07/29/18 at 0857 by CALI MCCLOUD WNDNU Amended: Links added.
[2018-07-29] MEDS ORDERED: HYDROGEL DRESSING 90 GM TUBE TP PRN (09:00)
[2018-07-29] MEDS: HYDROGEL DRESSING 90 GM TUBE TP SCH (09:27)
[2018-07-29] MEDS ORDERED: LIDOCAINE 1% INJ 50 ML MDV IJ ONE (09:44)
[2018-07-29] MEDS: LORAZEPAM INJ 2 MG/ML VIAL IV PRN ×2 (09:59→15:58)
--- NOTE | 2018-07-29 10:15 | NUR ---
RN NOTE BATCH TRUCKER ARRIVED FOR US GUIDED THORACENTESIS AT BEDSIDE. NO DISTRES NOTED. CHEST XRAY ORDERED AFTER PROCEDURE STAT.
--- NOTE | 2018-07-29 11:30 | NUR ---
RN NOTE SURGERY ARRIVED TO WATER PUMP SERVICER PATIETN FOR PLACEMENT OF G TUBE. VITALS STABLE CONSENT SIGNED, PROCEDURE EXPLAINED TO FAMILY. THORACENTESIS FLUID DROPED BY NURSE AT THE LAB.
[2018-07-29 12:00] VITALS: BP 154/95
--- NOTE | 2018-07-29 12:26 | NUR ---
WRONG NOTE AM NOTE ENTERED BELOW FOR WRONG PATIETN.
[2018-07-29] MEDS: MORPHINE SULFATE INJ 4 MG/ML DISP.SYRIN IV PRN ×2 (12:51→20:30)
[2018-07-29 16:00] VITALS: BP 143/95
--- NOTE | 2018-07-29 16:30 | NUR ---
RN NOTE MRSA LAB CALLED, PATIENT POSITIVE MRSA OF [place]. FAMILY AWARE, STAFF AWARE. ISOLATION PRECAUTIONS IN PLACE.
[2018-07-29] MEDS: BLOOD SUGAR DIAGNOSTIC 1 EACH STRIP IN SCH ×2 (17:30→21:40)
[2018-07-29] MEDS ORDERED: DEXTROSE 50%-WATER 50 ML DISP.SYRIN IV PRN (17:30)
[2018-07-29] MEDS ORDERED: INSULIN REGULAR, HUMAN 100 UNIT/ML 3 ML VIAL SQ PRN (17:30)
--- NOTE | 2018-07-29 19:24 | NUR ---
RN CLOSING NOTE PATIENT ALERT X1 BED IN LOW POSITION, AT BEDSIDE, SAFETY MEASURES IN PLACE. G TUBE FEEDING TO START AT 1999 TODAY. NIGHT NURSE AWARE. BED IN LOW POSITION VITALS WNL. JEN ROSS.
--- NOTE | 2018-07-29 19:30 | NUR ---
MS RN NOTE: RECEIVED PT ON BED ALERT AND ORIENTED X1. AT BEDSIDE. NO APPARENT DISTRESS NOTED. NO FACIAL GRIMACING OR ANY SIGNS OF PAIN NOTED. ON 2LPM NASAL CANNULA, NO SOB NOTED. CONDOM CATH INTACT AND PATENT, DRAINING WELL. GT INTACT, PATENT AND IN PLACED. KEPT CLEAN, DRY AND COMFORTABLE. SAFETY AND FALL PRECAUTIONS OBSERVED AND MAINTAINED. WILL CONTINUE TO MONITOR PT.
[2018-07-29 20:00] VITALS: BP 128/79
[2018-07-29] MEDS: GLUCERNA 1.2 1,000 ML BOTTLE NG PRN (20:37)
[2018-07-30] MEDS: ALBUTEROL FS 2.5 MG/0.5 ML VIAL.NEB IH SCH ×4 (01:29→19:11)
[2018-07-30] MEDS: IPRATROPIUM NEB FS 0.5 MG/2.5 ML AMPUL.NEB IH SCH ×4 (01:29→19:11)
[2018-07-30] MEDS: IV D5/0.45 NACL 1,000 ML IV PRN (03:36)
[2018-07-30 04:00] VITALS: BP 129/80
[2018-07-30] MEDS: MORPHINE SULFATE INJ 4 MG/ML DISP.SYRIN IV PRN ×3 (04:13→20:27)
[2018-07-30 06:28] LABS: BASOPHILS % (AUTO) 0.2 % (0.0-2.0); HEMATOCRIT 27 % (39-51); HEMOGLOBIN 8.8 g/dL (13.5-17.5); LYMPHOCYTES # (AUTO) 0.9 /CMM (0.8-4.8); LYMPHOCYTES % (AUTO) 7.9 % (20.0-44.0); MEAN CORPUSCULAR HGB CONC 33 g/dl (31.0-36.0); MEAN CORPUSCULAR VOLUME 86 fL (80-96); MONOCYTES # (AUTO) 0.7 /CMM (0.1-1.30); MONOCYTES % (AUTO) 6.2 % (2.0-12.0); NEUTROPHILS # (AUTO) 9.4 /CMM (1.8-8.9); NEUTROPHILS % (AUTO) 85.7 % (43.0-81.0); PLATELET COUNT (AUTO) 278 /CMM (150-450); RED BLOOD CELL COUNT(AUTO) 3.15 MIL/uL (4.5-6.0)
[2018-07-30 06:35] LABS: CALCIUM, SERUM 8.4 mg/dL (8.5-10.1); CREATININE 1.5 mg/dL (0.6-1.3); POTASSIUM 3.6 mmol/L (3.5-5.1)
--- NOTE | 2018-07-30 06:37 | NUR ---
MS RN NOTE: NO CHANGES NOTED THROUGHOUT THE SHIFT. NO FACIAL GRIMACING OR ANY SIGNS OF PAIN NOTED AT THIS TIME. ON 2LPM NASAL CANNULA, NO SOB NOTED. ON GLUCERNA 1.2 AT 10ML/HR, ABLE TO TOLERATE FEEDING WELL. NO RESIDUAL NOTED AT THIS TIME. CONDOM CATH INTACT AND PATENT, DRAINING WELL. KEPT CLEAN, DRY AND COMFORTABLE. SAFETY AND FALL PRECAUTIONS OBSERVED AND MAINTAINED. WILL ENDORSE TO DAY SHIFT RN FOR CONTINUITY OF CARE.
--- NOTE | 2018-07-30 07:20 | NUR ---
MS RN OPENING NOTE: RECEIVED REPORT FROM PM NURSE. PT ON BED AWAKE.NO FACIAL GRIMACING OR ANY SIGNS OF PAIN NOTED. ON 2LPM NASAL CANNULA, NO SOB NO DISTRESS NOTED. CONDOM CATH INTACT AND PATENT, DRAINING WELL. GT INTACT, PATENT AND IN PLACED. KEPT CLEAN, DRY AND COMFORTABLE. SAFETY AND FALL PRECAUTIONS OBSERVED AND MAINTAINED. ON L WRIST SOFT RESTRAINT.BED IS LOW AND IN LOCKED POSITION.CALL LIGHT IN REACH.BED ALARM ON.WILL CONTINUE TO MONITOR.
[2018-07-30] MEDS: BLOOD SUGAR DIAGNOSTIC 1 EACH STRIP IN SCH ×4 (07:53→21:16)
[2018-07-30 08:00] VITALS: BP 128/77
[2018-07-30] MEDS: PANTOPRAZOLE 40 MG VIAL IV SCH (08:35)
[2018-07-30] MEDS: FUROSEMIDE 40 MG/4 ML VIAL IV SCH (08:35)
[2018-07-30] MEDS: HYDROGEL DRESSING 90 GM TUBE TP SCH (08:38)
--- NOTE | 2018-07-30 08:52 | NUR ---
MS GUADALUPE NOTE PATIENT GRIMACING,ABOUT TO GIVE MEDICATIONS.FAMILY REFUSED MEDICATION MORPHINE ,PATIENT REPOSITIONED.WILL CONTINUE TO MONITOR. AT BEDSIDE. Addendum: 07/30/18 at 1827 by DAMION DOS SANTOS RN DISCARDED 3MG MORPHINE WITH ANAYELI BERGER.
--- NOTE | 2018-07-30 09:06 | NUR ---
MS RN NOTE PATIENT REMOVED IBV LINE.INSERTED NEW IV LINE IN L WRIST. AT BEDSIDE.WILL CONTINUE TO MONITOR.
[2018-07-30] MEDS ORDERED: HYDROCODONE/APAP 10/325MG 1 EA TABLET NG PRN (10:00)
[2018-07-30] MEDS: IV NS 0.9% 1,000 ML IV PRN (10:00)
--- NOTE | 2018-07-30 10:33 | NUR ---
MS RN NOTE SEEN BY ANNA DELACRUZ ,GOT NEW ORDER FOR L CHEST ABSCESS DRAINAGE. CONSENT SIGNED BY .GOT CALL FROM RADIOLOGY.SPOKE TO AYSHA.IR DOCTOR WILL SEE PATIENT AND DO THE PROCEDURE ON WEDNESDAY.ANNA DELACRUZ AND MADE AWARE MADE AWARE.
[2018-07-30 16:00] VITALS: BP 132/76
[2018-07-30 17:03] VITALS: BP 132/76
--- NOTE | 2018-07-30 18:53 | NUR ---
MS RN CLOSING NOTE: PT ON BED AWAKE.NO FACIAL GRIMACING OR ANY SIGNS OF PAIN NOTED. ON 2LPM NASAL CANNULA, NO SOB NO DISTRESS NOTED. CONDOM CATH INTACT AND PATENT, DRAINING WELL. GT INTACT, PATENT AND IN PLACED. KEPT CLEAN, DRY AND COMFORTABLE. SAFETY AND FALL PRECAUTIONS OBSERVED AND MAINTAINED. ON L WRIST SOFT RESTRAINT.BED IS LOW AND IN LOCKED POSITION.CALL LIGHT IN REACH.BED ALARM ON.WILL ENDORSE TO PM NURSE FOR DIANA.
--- NOTE | 2018-07-30 19:30 | NUR ---
MS RN NOTE: RECEIVED PT ON BED ALERT AND ORIENTED X1. AT BEDSIDE. NO APPARENT DISTRESS NOTED. PT WAS NOTED TO BE MOANING WITH FACIAL GRIMACING, PRN PAIN MEDS WILL BE GIVEN. ON 2LPM NASAL CANNULA, NO SOB NOTED. CONDOM CATH INTACT AND PATENT, DRAINING WELL. GT INTACT, PATENT AND IN PLACED. ABLE TO TOLERATE FEEDING WELL. IV ON LEFT WRIST #22 INTACT AND PATENT, IVF INFUSING WELL. KEPT CLEAN, DRY AND COMFORTABLE. SAFETY AND FALL PRECAUTIONS OBSERVED AND MAINTAINED. WILL CONTINUE TO MONITOR PT.
[2018-07-30 20:00] VITALS: BP 140/82
[2018-07-30] MEDS: MUPIROCIN OINT 2% 22 GM TUBE SCH (21:00)
[2018-07-31] MEDS: IPRATROPIUM NEB FS 0.5 MG/2.5 ML AMPUL.NEB IH SCH ×4 (01:28→19:59)
[2018-07-31] MEDS: ALBUTEROL FS 2.5 MG/0.5 ML VIAL.NEB IH SCH ×4 (01:28→19:59)
[2018-07-31] MEDS: GLUCERNA 1.2 1,000 ML BOTTLE NG PRN (02:38)
[2018-07-31 04:00] VITALS: BP 142/81
[2018-07-31 06:28] LABS: BASOPHILS % (AUTO) 0.4 % (0.0-2.0); EOSINOPHILS % (AUTO) 0.2 % (0.0-6.0); HEMATOCRIT 27 % (39-51); HEMOGLOBIN 8.9 g/dL (13.5-17.5); LYMPHOCYTES # (AUTO) 0.7 /CMM (0.8-4.8); LYMPHOCYTES % (AUTO) 8.9 % (20.0-44.0); MEAN CORPUSCULAR HGB CONC 33 g/dl (31.0-36.0); MEAN CORPUSCULAR VOLUME 86 fL (80-96); MONOCYTES # (AUTO) 0.5 /CMM (0.1-1.30); MONOCYTES % (AUTO) 6.3 % (2.0-12.0); NEUTROPHILS # (AUTO) 6.9 /CMM (1.8-8.9); NEUTROPHILS % (AUTO) 84.2 % (43.0-81.0); PLATELET COUNT (AUTO) 275 /CMM (150-450); RED BLOOD CELL COUNT(AUTO) 3.17 MIL/uL (4.5-6.0); WHITE BLOOD COUNT (AUTO) 8.2 K/uL (4.3-11.0)
[2018-07-31 06:39] LABS: CALCIUM, SERUM 8.7 mg/dL (8.5-10.1); CREATININE 1.3 mg/dL (0.6-1.3); POTASSIUM 3.7 mmol/L (3.5-5.1)
--- NOTE | 2018-07-31 06:44 | NUR ---
MS RN NOTE: NO CHANGES NOTED THROUGHOUT THE SHIFT. NO FACIAL GRIMACING OR ANY SIGNS OF PAIN NOTED AT THIS TIME. ON 2LPM NASAL CANNULA, NO SOB NOTED. ON GLUCERNA 1.2 AT 20ML/HR, NO RESIDUAL NOTED AT THIS TIME. CONDOM CATH INTACT AND PATENT, DRAINING WELL. KEPT CLEAN, DRY AND COMFORTABLE. SAFETY AND FALL PRECAUTIONS OBSERVED AND MAINTAINED. WILL ENDORSE TO DAY SHIFT RN FOR CONTINUITY OF CARE.
--- NOTE | 2018-07-31 07:30 | NUR ---
RN NOTES RECEIVED PATIENT IN BED ASLEEP. BUT AWAKEN BY VERBAL STIMULI, ABLE TO TRACK, WITH UNCLEAR WORDS, NO FACIAL GRIMACING OR ANY SIGNS OF PAIN NOTED. ON 2LPM NASAL CANNULA, NO SOB, NO DISTRESS NOTED. IV ACCESS ON THE LEFT HAND: G [address] AND INTACT, PATENT ON FLUSHIG WITH ONGOING IVF OF NS AT 75CC/HR. LEFT HAND ON SOFT RESTRAINTS, SKIN IS INTACT WITH NO SKIN BREAKDOWN. CONDOM CATH INTACT AND IN PLACE, DRAINING WELL. GT INTACT AND PATENT, PLACEMENT VERIFIED WITH AUSCULTATION AND ASPIRATING GASTRIC RESIDUAL:NO RESIDUAL TAKEN AT THIS TIME. SAFETY MEASURES, ASPIRATION AND FALL PRECAUTIONS OBSERVED AND MAINTAINED .BED IN LOW AND IN LOCKED POSITION. CALL LIGHT WITHIN REACH. BED ALARM ON. WILL CONTINUE TO MONITOR.
[2018-07-31 08:00] VITALS: BP 147/87
[2018-07-31] MEDS: PANTOPRAZOLE 40 MG VIAL IV SCH (08:30)
[2018-07-31] MEDS: BLOOD SUGAR DIAGNOSTIC 1 EACH STRIP IN SCH ×4 (08:30→21:33)
[2018-07-31] MEDS: FUROSEMIDE 40 MG/4 ML VIAL IV SCH (08:31)
[2018-07-31] MEDS: IV NS 0.9% 1,000 ML IV PRN ×2 (08:34→21:35)
[2018-07-31] MEDS: HYDROGEL DRESSING 90 GM TUBE TP SCH (10:59)
[2018-07-31] MEDS: MUPIROCIN OINT 2% 22 GM TUBE SCH ×2 (11:16→21:27)
[2018-07-31 12:00] VITALS: BP 130/61
[2018-07-31 16:00] VITALS: BP 130/61
[2018-07-31] MEDS: MORPHINE SULFATE INJ 4 MG/ML DISP.SYRIN IV PRN (16:31)
--- NOTE | 2018-07-31 18:55 | NUR ---
rn notes endorsed patient for continuity of care, no acute changes within the shift. all nursing needs attended and met. safety measures, aspiration precaution and isolation kept in place at all times.
--- NOTE | 2018-07-31 19:30 | NUR ---
RECEIVED PATIENT IN BED WITH EYES CLOSED; EASILY AROUSABLE. AO X 1, RESPONSIVE. NO ACUTE DISTRESS NOTED. NO SIGNS OF PAIN NOTED. IV SITE PATENT, INTACT; FLUSHED. GT PATENT, INTACT; IN PLACE WHEN AUSCULTATED. PATIENT TOLERATING GTF. HOB RAISED. CONDOM CATH INTACT; DRAINING CLEAR YELLOW UICONTACT ISOLATION FOR MRSA MAINTAINED. SAFETY REMINDERS GIVEN. ON LOW BED WITH BILATERAL UPPER SIDE RAILS UP. CALL RAMIREZ WITHIN EASY REACH. WILL CONTINUE TO MONITOR.
[2018-07-31 20:00] VITALS: BP 128/75
[2018-07-31] MEDS: LORAZEPAM INJ 2 MG/ML VIAL IV PRN (21:29)
[2018-08-01] MEDS: IPRATROPIUM NEB FS 0.5 MG/2.5 ML AMPUL.NEB IH SCH ×3 (01:16→13:47)
[2018-08-01] MEDS: ALBUTEROL FS 2.5 MG/0.5 ML VIAL.NEB IH SCH ×3 (01:16→13:47)
[2018-08-01 04:00] VITALS: BP 151/81
--- NOTE | 2018-08-01 06:30 | NUR ---
PATIENT IN BED ASLEEP, EASILY AROUSABLE. RESPIRATIONS EVEN. NO SIGNS OF PAIN NOTED. DUE MEDS GIVEN WITH NO ASE NOTED. NEEDS ATTENDED. KEPT CLEAN, DRY, AND COMFORTABLE. LEFT SOFT WRIST RESTRAINT IN PLACE; RELEASED Q 15 MINUTES; SKIN CHECK DONE; LEFT WRIST ROM DONE. SAFETY PRECAUTIONS AND COMFORT MEASURES IN PLACE. WILL GIVE REPORT TO DAY SHIFT FOR CONTINUITY OF CARE.
[2018-08-01 06:39] LABS: BASOPHILS % (AUTO) 0.4 % (0.0-2.0); EOSINOPHILS % (AUTO) 0.4 % (0.0-6.0); HEMATOCRIT 27 % (39-51); HEMOGLOBIN 8.7 g/dL (13.5-17.5); LYMPHOCYTES # (AUTO) 0.7 /CMM (0.8-4.8); LYMPHOCYTES % (AUTO) 10.9 % (20.0-44.0); MEAN CORPUSCULAR HGB CONC 33 g/dl (31.0-36.0); MEAN CORPUSCULAR VOLUME 86 fL (80-96); MONOCYTES # (AUTO) 0.5 /CMM (0.1-1.30); MONOCYTES % (AUTO) 7.1 % (2.0-12.0); NEUTROPHILS # (AUTO) 5.5 /CMM (1.8-8.9); NEUTROPHILS % (AUTO) 81.2 % (43.0-81.0); PLATELET COUNT (AUTO) 239 /CMM (150-450); RED BLOOD CELL COUNT(AUTO) 3.11 MIL/uL (4.5-6.0); WHITE BLOOD COUNT (AUTO) 6.7 K/uL (4.3-11.0)
[2018-08-01 07:12] LABS: ALBUMIN 1.6 g/dL (3.4-5.0); BILIRUBIN,TOTAL 0.3 mg/dL (0.2-1.0); CALCIUM, SERUM 8.8 mg/dL (8.5-10.1); CREATININE 1.1 mg/dL (0.6-1.3); MAGNESIUM 2.4 mg/dL (1.8-2.4); PHOSPHORUS 2.6 mg/dL (2.5-4.9); POTASSIUM 3.3 mmol/L (3.5-5.1); TOTAL PROTEIN, SERUM 7.1 g/dL (6.4-8.2)
[2018-08-01] MEDS: BLOOD SUGAR DIAGNOSTIC 1 EACH STRIP IN SCH ×2 (07:30→12:00)
[2018-08-01 08:00] VITALS: BP 157/86
[2018-08-01] MEDS: FUROSEMIDE 40 MG/4 ML VIAL IV SCH (08:47)
[2018-08-01] MEDS: PANTOPRAZOLE 40 MG VIAL IV SCH (08:47)
[2018-08-01] MEDS: MUPIROCIN OINT 2% 22 GM TUBE SCH (09:45)
[2018-08-01] MEDS: HYDROGEL DRESSING 90 GM TUBE TP SCH (09:45)
[2018-08-01] MEDS ORDERED: IV 1/2NS 1000 ML 1,000 ML IV ONE (10:30)
[2018-08-01] MEDS ORDERED: POTASSIUM CHLORIDE 20 MEQ TAB.PRT.SR PO ONE (10:30)
[2018-08-01] MEDS: GLUCERNA 1.2 1,000 ML BOTTLE NG PRN (11:44)
[2018-08-01] MEDS ORDERED: LEVOFLOXACIN 750 MG /D5W 150ML 750 MG in PREMIX 1 EA IV SCH (13:00)
[2018-08-01] MEDS ORDERED: LEVO500T75 GT (13:01)
[2018-08-01] MEDS ORDERED: HYDR-4354 PO (13:01)
[2018-08-01] MEDS ORDERED: MUPI22OI7 MC (13:07)
--- NOTE | 2018-08-01 15:30 | NUR ---
report called to Michael Hidalgo.
[2018-08-01 16:00] VITALS: BP 150/84
--- NOTE | 2018-08-01 16:35 | NUR ---
Patient cleared for d/c to [facility] by . Pt bedbound, a/ox 2 ,with right side weakens, non-verbal. GT placed on 07/29/18 , feeding rate 30ml/hr at this time with no residual. Feeding to increase by 10ml every 24houres, goal 60 ml/hr. Patient VS are stable and at his base line, O2 saturation 98% on 2l via NC.All pictures taken on 08/01/18 at 0600. Wound care provided prior d/c as directed. IV line removed, no complications noted, ID wrist band removed. Discharge instructions and education provided to : verbalized understanding. Med.recon form sent to facility D/c instruction form and valuable form signed by .Patient picked up by ambulance.
[2018-08-01] MEDS ORDERED: PROSOURCE / PROSTAT (PYXIS) 30 ML UDC GT SCH (17:00)
== END 2018-08-01 16:35 | DRG 393 ==
LOC: ER 18:43 → MEDSG1 20:27
PROVIDERS: ADMIT Internal Medicine; ATTEND Nurse Practitioner Acute Care
PROC: 0D20XUZ Change Feeding Device in Upper Intestinal Tract, External Approach (ICD-10-PCS; principal; 2018-07-29)
PROC: 0W993ZZ Drainage of Right Pleural Cavity, Percutaneous Approach (ICD-10-PCS; 2018-07-29)
DX: Z43.1 Encounter for attention to gastrostomy (principal); N17.0 Acute kidney failure with tubular necrosis; I50.31 Acute diastolic (congestive) heart failure; J69.0 Pneumonitis due to inhalation of food and vomit; G93.40 Encephalopathy, unspecified; E46 Unspecified protein-calorie malnutrition; D68.59 Other primary thrombophilia; I13.0 Hypertensive heart and chronic kidney disease with heart failure and stage 1 through stage 4 chronic kidney disease, or unspecified chronic kidney disease; J90 Pleural effusion, not elsewhere classified; E87.0 Hyperosmolality and hypernatremia; L02.213 Cutaneous abscess of chest wall; E78.5 Hyperlipidemia, unspecified; E11.22 Type 2 diabetes mellitus with diabetic chronic kidney disease; I69.320 Aphasia following cerebral infarction; K21.0 Gastro-esophageal reflux disease with esophagitis; K59.00 Constipation, unspecified; Z87.891 Personal history of nicotine dependence; D64.9 Anemia, unspecified; E88.09 Other disorders of plasma-protein metabolism, not elsewhere classified; S31.000A Unspecified open wound of lower back and pelvis without penetration into retroperitoneum, initial encounter; X58.XXXA Exposure to other specified factors, initial encounter; Y93.9 Activity, unspecified; Y92.129 Unspecified place in nursing home as the place of occurrence of the external cause; S20.212A Contusion of left front wall of thorax, initial encounter; Z22.322 Carrier or suspected carrier of Methicillin resistant Staphylococcus aureus; N18.9 Chronic kidney disease, unspecified; R13.10 Dysphagia, unspecified
CPT/HCPCS: 36415; 36600; 43246; 71045-TC; 76882; 76942-TC; 80048-TC; 80053-TC; 82803-TC; 82962-TC; 83735-TC; 83880; 84100-TC; 84484-TC; 85025-TC; 85730-TC; 87070-TC; 87075-TC; 87081-TC; 87102-TC; 88305-TC; 88312-TC; 89051-TC; 94799-TC; A4216; A4217; A4349; A6248; C9113; G0378; J0690; J1815; J1940; J1956; J2060; J2270; J2405; J2704; J3490; J7030

== ENCOUNTER 2019-05-29 19:07 | Emergency (ER) | payer MEDICARE, OTHER ==
[~2019-05-29] VITALS: Ht 165.1 cm; Wt 56.7 kg
[~2019-05-29 19:07] MED LIST changes: +ASCO-352 GT; -ASCO500T9 GT; +FERR220S2 GT; +FURO-144 GT; +HYDR-4354 PO; +LEVO500T75 GT; -MELA3TAB GT; +MELA3TAB41 GT; +MUPI22OI7 MC; +POTA-10 GT; -ZINC220C8 GT
--- NOTE | 2019-05-29 19:30 | NUR ---
PT BIB PRIVATE AMBULANCE FROM [facility] FOR ABNORMAL CXR RESULT OF PULMONARY EDEMA. NO SOB. COARSE CRACKLES AND WHEEZING UPON AUSCULTATION NOTED. PT ALERT, NON VERBAL, VSS AT THIS TIME, NO ACUTE DISTREE NOTED AND MEDICAL COMPLAINTS AT THIS TIME. PT CONNECTED TO THE MONITOR AND POX
--- NOTE | 2019-05-29 19:31 | NUR ---
DR MORALES AT BEDSIDE
[2019-05-29 19:58] LABS: BASOPHILS # (AUTO) 0.1 /CMM (0.0-0.2); BASOPHILS % (AUTO) 1.1 % (0.0-2.0); EOSINOPHILS % (AUTO) 1.8 % (0.0-6.0); HEMATOCRIT 35 % (39-51); HEMOGLOBIN 11.7 g/dL (13.5-17.5); LYMPHOCYTES # (AUTO) 1.6 /CMM (0.8-4.8); LYMPHOCYTES % (AUTO) 21.2 % (20.0-44.0); MEAN CORPUSCULAR HGB CONC 33 g/dl (31.0-36.0); MEAN CORPUSCULAR VOLUME 89 fL (80-96); MONOCYTES # (AUTO) 0.8 /CMM (0.1-1.30); MONOCYTES % (AUTO) 10.4 % (2.0-12.0); NEUTROPHILS # (AUTO) 4.9 /CMM (1.8-8.9); NEUTROPHILS % (AUTO) 65.5 % (43.0-81.0); PLATELET COUNT (AUTO) 232 /CMM (150-450); WHITE BLOOD COUNT (AUTO) 7.5 K/uL (4.3-11.0)
[2019-05-29 20:05] LABS: CALCIUM, SERUM 9.5 mg/dL (8.5-10.1); CARBON DIOXIDE 30 mmol/L (21-32); CHLORIDE 94 mmol/L (98-107); CREATININE 1.1 mg/dL (0.6-1.3); GLUCOSE 87 mg/dL (74-106); POTASSIUM 4.1 mmol/L (3.5-5.1); SODIUM SERUM 131 mmol/L (136-145); UREA NITROGEN, BLOOD 23 mg/dL (7-18)
[2019-05-29 20:17] LABS: ALANINE AMINOTRANSFERASE 18 U/L (12-78); ALBUMIN 2.8 g/dL (3.4-5.0); ALKALINE PHOSPHATASE 144 U/L (46-116); ASPARTATE AMINOTRANSFERASE 21 U/L (15-37); B-TYPE NATRIURETIC PEPTIDE 331 PG/ML (0-125); BILIRUBIN,DIRECT 0.1 mg/dL (0.0-0.2); BILIRUBIN,TOTAL 0.3 mg/dL (0.2-1.0); TOTAL PROTEIN, SERUM 7.5 g/dL (6.4-8.2)
--- NOTE | 2019-05-29 21:28 | NUR ---
PT'S FAMILY REQUESTED FOR TRANSPORT
--- NOTE | 2019-05-29 21:33 | NUR ---
REPORT GIVEN TO JOAQUINA HEATH
--- NOTE | 2019-05-29 21:33 | NUR ---
[facility] TRANSPORT ARRANGED FOR [id number]
--- NOTE | 2019-05-29 23:05 | NUR ---
REPORT GIVEN TO EMS. PT STABLE FOR TRANSFER
[2019-05-29 23:06] VITALS: BP 139/81
== END 2019-05-29 23:06 | disposition home or self-care (01) ==
LOC: ER 19:08
DX: D64.9 Anemia, unspecified (principal); I25.2 Old myocardial infarction; I11.0 Hypertensive heart disease with heart failure; I50.9 Heart failure, unspecified; E11.9 Type 2 diabetes mellitus without complications; E78.5 Hyperlipidemia, unspecified; Z86.73 Personal history of transient ischemic attack (TIA), and cerebral infarction without residual deficits; Z98.890 Other specified postprocedural states; Z87.01 Personal history of pneumonia (recurrent); Z91.048 Other nonmedicinal substance allergy status; Z79.899 Other long term (current) drug therapy
CPT/HCPCS: 36415; 71045-TC; 80048-TC; 80076-TC; 83880; 84484-TC; 85025-TC; 85730-TC

== ENCOUNTER 2019-08-27 22:03 | Inpatient (IN) | payer MEDICARE, OTHER ==
[~2019-08-27] VITALS: Ht 165.1 cm; Wt 63.5 kg
--- NOTE | 2019-08-27 22:03 | NUR ---
TO ER BED 5 BIB EMS FROM [facility] C/O FEVER AND SOB. RECTAL TEMP-100.4, O2 SAT 92% RA. RHONCHI HEARD BILATERALL ON AUSCULTATION. PT CONFUSED, AAOX1. PLACE PT ON CARDIAC MONITORING, CONTINUOUS POX, O2@2L/NC. SURGICAL AMSK PLACED, PT ON ISOLATION ROOM. ER MD AT BEDSIDE TO EVAL PT WITH ORDERS RECEIVED. WILL CARRY OUT ORDERS.
--- NOTE | 2019-08-27 22:10 | NUR ---
STARTED SL 18G TO L HAND, BLOOD WITH BLOOD CULTURES DRAWN AND SENT TO LAB.
[2019-08-27] MEDS ORDERED: KETOROLAC TROMETHAMINE 15 MG/ML VIAL ONE (22:16)
[2019-08-27 22:29] LABS: BASOPHILS % (AUTO) 0.3 % (0.0-2.0); EOSINOPHILS % (AUTO) 1.4 % (0.0-6.0); HEMATOCRIT 32 % (39-51); HEMOGLOBIN 9.9 g/dL (13.5-17.5); LYMPHOCYTES % (AUTO) 12.3 % (20.0-44.0); MEAN CORPUSCULAR HGB CONC 31 g/dl (31.0-36.0); MEAN CORPUSCULAR VOLUME 101 fL (80-96); MONOCYTES # (AUTO) 0.6 /CMM (0.1-1.30); MONOCYTES % (AUTO) 8.1 % (2.0-12.0); NEUTROPHILS % (AUTO) 77.9 % (43.0-81.0); PLATELET COUNT (AUTO) 136 /CMM (150-450); WHITE BLOOD COUNT (AUTO) 7.7 K/uL (4.3-11.0)
[2019-08-27] MEDS ORDERED: KETOROLAC TROMETHAMINE INJ 30 MG/ML VIAL IV ONE (22:30)
[2019-08-27 22:33] LABS: ABG BASE EXCESS 9.7 mmol/L; ABG OXYGEN SATURATION 95.5 % (92.0-98.5); ABG PCO2 62.3 mmHg (35.0-45.0); ABG PH 7.385 (7.350-7.450); ABG PO2 85.5 mmHg (75.0-100.0); AaDO2 69.8 mmHg; MetHb 0.5 % (0.0-1.5); O2Hb 94.1 % (94.0-97.0); SITE, ABG Left Radial; VENT MODE, BG 3 LNC
--- NOTE | 2019-08-27 22:40 | NUR ---
COVID SWAB SENT TO LAB
--- NOTE | 2019-08-27 22:40 | NUR ---
INFLUENZA SWAB SENT TO LAB
[2019-08-27 22:55] LABS: APPEARANCE,URINE Clear (CLEAR); BILIRUBIN,URINE Negative (NEGATIVE); BLOOD, URINE Negative Ery/uL (NEGATIVE); COLOR,URINE Yellow (YELLOW); KETONES,URINE Negative (NEGATIVE); LEUKOCYTE ESTERASE ,URINE Negative (NEGATIVE); NITRITE, URINE Negative (NEGATIVE); PH,URINE 5.5 (5.0-8.0); PROTEIN,URINE 100 mg/dl (NEGATIVE); UGLUCOSE Negative (NEGATIVE); UROBILINOGEN,URINE 0.2 EU/dL (0.2)
[2019-08-27 22:56] LABS: ALANINE AMINOTRANSFERASE 16 U/L (12-78); ALBUMIN 2.2 g/dL (3.4-5.0); ALKALINE PHOSPHATASE 178 U/L (46-116); ASPARTATE AMINOTRANSFERASE 17 U/L (15-37); B-TYPE NATRIURETIC PEPTIDE 629 PG/ML (0-125); BILIRUBIN,TOTAL 0.3 mg/dL (0.2-1.0); CALCIUM, SERUM 8.5 mg/dL (8.5-10.1); CARBON DIOXIDE 37 mmol/L (21-32); CHLORIDE 119 mmol/L (98-107); GLUCOSE 105 mg/dL (74-106); POTASSIUM 4.2 mmol/L (3.5-5.1); TOTAL PROTEIN, SERUM 7.2 g/dL (6.4-8.2); UREA NITROGEN, BLOOD 57 mg/dL (7-18)
[2019-08-27 23:02] LABS: SODIUM SERUM 160 mmol/L (136-145)
[2019-08-27 23:09] LABS: BACTERIA,URINE Few /HPF (None Seen); MUCUS,URINE Few /LPF (None Seen); RBC,URINE 0-2 /HPF (0-2); SQUAMOUS EPITHELIAL CELL,UR Few /HPF (None Seen); URINE AMORPHOUS URATE Few /HPF (None Seen); WBC,URINE 0-2 /HPF (0-3)
[2019-08-27] MEDS ORDERED: OXCA300T15 GT (23:15)
[2019-08-27] MEDS ORDERED: CLON0.1T GT (23:15)
[2019-08-27] MEDS ORDERED: FURO-144 GT (23:15)
[2019-08-27] MEDS ORDERED: IPRA4AER IH (23:15)
[2019-08-27] MEDS ORDERED: HYDR-4354 GT (23:15)
[2019-08-27] MEDS ORDERED: CRAN3875 GT (23:15)
[2019-08-27] MEDS ORDERED: POTA10CA43 GT (23:15)
[2019-08-27] MEDS ORDERED: GEMF600T5 GT (23:15)
[2019-08-27] MEDS ORDERED: BACL5TAB GT (23:15)
[2019-08-27] MEDS ORDERED: SACC250C GT (23:15)
[2019-08-27] MEDS ORDERED: OMEP20CA15 GT (23:15)
[2019-08-27] MEDS ORDERED: MELA3TAB41 GT (23:15)
[2019-08-27] MEDS ORDERED: AMLO10TA7 GT (23:15)
[2019-08-27] MEDS ORDERED: VIT500LI GT (23:15)
[2019-08-27] MEDS ORDERED: CITA10TA17 GT (23:15)
[2019-08-27] MEDS ORDERED: CARV25TA2 PO (23:15)
[2019-08-27] MEDS ORDERED: CEFT1VIA15 IV (23:15)
[2019-08-27] MEDS ORDERED: LACT10SO GT (23:15)
[2019-08-27] MEDS ORDERED: CALC-261 PO (23:15)
[2019-08-27] MEDS ORDERED: ZINC454P2 GT (23:15)
[2019-08-27] MEDS ORDERED: CHOL2400 GT (23:15)
[2019-08-27] MEDS ORDERED: HYDR100T27 GT (23:15)
[2019-08-27] MEDS ORDERED: FERR325T23 GT (23:15)
[2019-08-27] MEDS ORDERED: LORA-259 GT (23:15)
[2019-08-27 23:17] LABS: CREATINE KINASE, TOTAL 63 U/L (39-308); FERRITIN 121 ng/mL (8-388)
[2019-08-27] MEDS ORDERED: AZITHROMYCIN 500 MG VIAL ONE (23:17)
[2019-08-27 23:19] LABS: C-REACTIVE PROTEIN 7.9 mg/dL (0.0-0.9)
[2019-08-27] MEDS ORDERED: AZITHROMYCIN 500 MG in IV D5W 250 ML IV ONE (23:30)
[2019-08-27] MEDS ORDERED: HYDROCODONE/APAP 10/325MG 1 EA TABLET GT PRN (23:30)
[2019-08-27] MEDS ORDERED: IV NS 0.9% 1,000 ML IV ONE (23:30)
[2019-08-27] MEDS ORDERED: CLONIDINE HCL 0.1 MG TABLET GT PRN (23:30)
[2019-08-27] MEDS ORDERED: Z GUARD REMEDY 2 OZ OINT TP PRN (23:30)
[2019-08-28] VITALS (35 sets, daily range): BP systolic 95–169; BP diastolic 49–101
--- NOTE | 2019-08-28 00:21 | NUR ---
TELE BED 107
[2019-08-28 00:25] LABS: D-DIMER 3.02 mg/L(FEU (0.17-0.50)
--- NOTE | 2019-08-28 00:38 | NUR ---
REPORT GIVEN TO ZAKIYA ON THE FIRST FLOOR
--- NOTE | 2019-08-28 00:49 | NUR ---
PT TRANSPORTED SAFELY TO ROOM W/ EMT AND RN VIA ACLS PROTOCOL.
[2019-08-28] MEDS ORDERED: ZOSYN IVPB 2.25 G in IV D5W 50ml IV ONE (01:00)
--- NOTE | 2019-08-28 01:00 | NUR ---
ORDER ENTRY ADMINISTRATORFIRE PREVENTION CHIEF NOTES RECEIVED PATIENT FROM ER VIA GURNEY, ALERT AND ORIENTED X 1 NON-VERBAL. BREATHING SHALLOW ON OXYGEN AT 3L/MIN VIA NASAL CANNULA. LEFT HAND G18 IV LINE INTACT AND PATENT, INFUSING WELL WITH NO BLEEDING OR S/S OF INFILTRATION NOTED. BODY ASSESSMENT DONE, SEEN WITH SACRAL REDNESS AND LEFT FOREARM DISCOLORATION. PHOTO TAKEN, KEPT IN CHART. BELONGINGS CHECKED WITH VALVE LINER RUBBER. GTUBE PATENT AND INTACT WITH NO RESIDUAL ASPIRATED. ATTACHED TO MANAGER BATTERY WITH INITIAL RHYTHM NSR AT 66bpm. ON ISOLATION PRECAUTION FOR RULE OUT COVID19. BED LOW AND LOCKED ON SEMI FOWLERS POSITION. CALL LIGHT IN REACH. WILL CONTINUE TO MONITOR.
[2019-08-28] MEDS: IV D5W 1,000 ML IV PRN ×2 (01:43→18:01)
[2019-08-28] MEDS ORDERED: PIPERACILLIN /TAZOBACTAM 2.25 G VIAL IV ONE (01:52)
--- NOTE | 2019-08-28 02:00 | NUR ---
DIRECTOR OF ASSESSING NOTES ALSO SEEN WITH LEFT FOOT G22 IV LINE FROM SNF, FLUSHING WELL WITH NO BLEEDING OR S/S INFILTRATION NOTED.
[2019-08-28 06:22] LABS: BASOPHILS % (AUTO) 0.1 % (0.0-2.0); EOSINOPHILS % (AUTO) 1.2 % (0.0-6.0); HEMATOCRIT 32 % (39-51); HEMOGLOBIN 9.9 g/dL (13.5-17.5); LYMPHOCYTES # (AUTO) 0.8 /CMM (0.8-4.8); LYMPHOCYTES % (AUTO) 12.6 % (20.0-44.0); MEAN CORPUSCULAR HGB CONC 31 g/dl (31.0-36.0); MEAN CORPUSCULAR VOLUME 100 fL (80-96); MONOCYTES # (AUTO) 0.3 /CMM (0.1-1.30); MONOCYTES % (AUTO) 5.2 % (2.0-12.0); NEUTROPHILS # (AUTO) 5.2 /CMM (1.8-8.9); NEUTROPHILS % (AUTO) 80.9 % (43.0-81.0); PLATELET COUNT (AUTO) 116 /CMM (150-450); RED BLOOD CELL COUNT(AUTO) 3.19 MIL/uL (4.5-6.0); WHITE BLOOD COUNT (AUTO) 6.5 K/uL (4.3-11.0)
--- NOTE | 2019-08-28 06:25 | NUR ---
COMMERCIAL SALES SPECIALIST CLOSING NOTES PATIENT IN BED ALERT AND ORIENTED X 1 NON-VERBAL. AFEBRILE WITH NO S/S OF DISTRESS OBSERVED. LEFT HAND G18 AND LEFT FOOT G22 IV LINE PATENT AND FLUSHING WELL. GTUBE PATENT AND INTACT WITH NO RESIDUAL ASPIRATED. MAINTAINED ON CERTIFIED GENETIC COUNSELOR WITH NSR AT 68bpm. ON ISOLATION PRECAUTION FOR RULE OUT COVID19. BED LOW AND LOCKED ON SEMI FOWLERS POSITION. CALL LIGHT IN REACH. WILL ENDORSE TO MORNING SHIFT FOR DIANA.
[2019-08-28] MEDS ORDERED: TWOCAL HN 1,000 ML LIQUID GT PRN (06:30)
[2019-08-28 06:48] LABS: ALANINE AMINOTRANSFERASE 16 U/L (12-78); ALKALINE PHOSPHATASE 160 U/L (46-116); ASPARTATE AMINOTRANSFERASE 18 U/L (15-37); BILIRUBIN,TOTAL 0.3 mg/dL (0.2-1.0); CALCIUM, SERUM 8.1 mg/dL (8.5-10.1); CARBON DIOXIDE 37 mmol/L (21-32); CHLORIDE 118 mmol/L (98-107); GLUCOSE 107 mg/dL (74-106); MAGNESIUM 3.1 mg/dL (1.8-2.4); PHOSPHORUS 3.7 mg/dL (2.5-4.9); POTASSIUM 4.2 mmol/L (3.5-5.1); TOTAL PROTEIN, SERUM 6.6 g/dL (6.4-8.2); UREA NITROGEN, BLOOD 61 mg/dL (7-18)
[2019-08-28 06:50] LABS: CHOLESTEROL 119 mg/dL (<200); HDL CHOLESTEROL 41 mg/dL (40-60); LDL 77 mg/dL (0-99); THYROID STIMULATING HORMONE 0.668 uIU/mL (0.358-3.74); TRIGLYCERIDES 60 mg/dL (30-150)
[2019-08-28 06:52] LABS: IRON, SERUM 39 ug/dl (50-175); TOTAL IRON BINDING CAPACITY 221 ug/dl (250-450)
[2019-08-28] MEDS: PIPERACILLIN /TAZOBACTAM 2.25 G in IV D5W 50 ML IV SCH ×2 (07:31→14:45)
--- NOTE | 2019-08-28 08:00 | NUR ---
tele hydroelectric plant technician: notes received pt in bed awake, non-verbal, appears lethargic. on o2 at 3l/min via n/c. hob elevated. afebrile. isolation precaution maintained. in no apparent distress noted. will continue to monitor.
[2019-08-28 08:22] LABS: SODIUM SERUM 158 mmol/L (136-145)
[2019-08-28] MEDS: PANTOPRAZOLE 40 MG VIAL IV SCH (08:50)
[2019-08-28] MEDS: ACIDOPHILUS/BULGARICUS 1 EACH TAB.CHEW GT SCH ×2 (08:51→17:52)
[2019-08-28] MEDS: CALCIUM CARB 600MG /VIT D 1 EACH TABLET GT SCH (08:51)
[2019-08-28] MEDS: OXCARBAZEPINE 150 MG TABLET GT SCH ×2 (08:51→17:50)
[2019-08-28] MEDS: CHOLECALCIFEROL 1,000 UNIT TABLET (VIT D3) GT SCH (08:51)
[2019-08-28] MEDS: ASCORBIC ACID 500 MG TABLET GT SCH (08:51)
[2019-08-28] MEDS: ZINC SULFATE 220 MG CAPSULE GT SCH (08:53)
[2019-08-28] MEDS: CITALOPRAM HYDROBROMIDE 10 MG TABLET GT SCH (08:53)
[2019-08-28] MEDS ORDERED: CARVEDILOL 3.125 MG TABLET GT ONE (09:00)
[2019-08-28] MEDS ORDERED: ASCORBIC ACID SYRUP 500 MG/5 ML UDC GT SCH (09:00)
--- NOTE | 2019-08-28 10:13 | NUR ---
tele veneer drier feeder: pulmo consult seen by dr. farnsworth with order. order acknowledged.
[2019-08-28] MEDS ORDERED: methylPREDNISolone SOD SUCC 40 MG/ML VIAL IV SCH (10:30)
[2019-08-28] MEDS: HYDROCORTISONE SOD SUCCINATE 100 MG/2 ML VIAL IV SCH ×3 (11:17→17:50)
[2019-08-28] MEDS: HEPARIN SODIUM, PORCINE 5000 UNITS/1 ML VIAL SQ SCH ×2 (11:19→18:30)
--- NOTE | 2019-08-28 11:30 | NUR ---
tele division service manager: notes noted pt with sob and desating to 78%-80% on 3l/min via n/c, increase o2 to 6l/min via n/c and still satting at 82%. place pt on non-rebreather at 15l/min. pt remains lethargic. cn made aware and called r.t.
--- NOTE | 2019-08-28 11:43 | NUR ---
katie rachel: notes abg taken by janelle Addendum: 08/28/19 at [address] farnsworth notified and made aware re: pt's present condition with order of stat abg. order read back and carried out and acknowledged.
--- NOTE | 2019-08-28 11:50 | NUR ---
TELE FREQUENCY CHECKER: NOTES DR. CHI WITH R.T. AT BEDSIDE AND WITH VERBAL ORDER TO TRANSFER PT TO ICU. CN AWARE AND CALLING FOR ICU BED. PT REMAINS LETHARGIC AND STILL ON NON-REBREATHER AT 15L/MIN.
[2019-08-28] MEDS: IPRATROPIUM/ALBUTEROL INHALER IH SCH ×2 (12:00→18:00)
[2019-08-28 12:03] LABS: ABG OXYGEN SATURATION 96.2 % (92.0-98.5); ABG PCO2 62.3 mmHg (35.0-45.0); ABG PH 7.356 (7.350-7.450); ABG PO2 87.8 mmHg (75.0-100.0); AaDO2 417.2 mmHg; COHb 1.7 % (0.5-1.5); MetHb 0.3 % (0.0-1.5); O2Hb 94.3 % (94.0-97.0); SITE, ABG Right Radial; VENT MODE, BG NRB
--- NOTE | 2019-08-28 12:20 | NUR ---
OTOLARYNGOLOGY SURGEON PT TRANSFERRED BY BED WITH MONITOR TO ROOM 265. REPORT RECEIVED FROM BRUSH FABRICATION SUPERVISOR. SPO2 96 ON FACE MASK. PT CONFUSED AND ATTEMPTING TO REMOVE MASK. AWAITING ABG RESULTS.
--- NOTE | 2019-08-28 12:20 | NUR ---
tele stress test technician: notes transfer to icu via bed with acls protocol accompanied by 2 staff.
--- NOTE | 2019-08-28 12:25 | NUR ---
tele technical sales representative: notes report given to jennifer (rn) for continuity of care.
--- NOTE | 2019-08-28 12:30 | NUR ---
tele proof reader: notes chelsea () notified and made aware re: transfer to icu, spoke to her over the phone and call transfer to icu.
--- NOTE | 2019-08-28 13:19 | NUR ---
REPRESENTATIVE received a call from pt's Belinda' upset stating she has been trying to reach ICU to speak with the RN about pt's condition since pt.was transferred to ICU earlier this afternoon. REPRESENTATIVE provided active listening, supportive counselling and validation of feelings. REPRESENTATIVE informed , she will contact ICU and have someone call her back to update her on the pt's condition. REPRESENTATIVE contacted ICU x [phone] and spoke with ICU Director Yosi and informed him about pt's wanting an update on pt's condition. REPRESENTATIVE provided Yosi with contact information for the . Yosi to f/u.
--- NOTE | 2019-08-28 13:45 | NUR ---
TEMPERATURE CONTROL INSPECTOR PT WAS SUCCESSFULLY INTUBATED BY DR ROBERT USING COVID PRECAUTIONS. ETT POSITION VERIFIED BY CXR. PROPOFOL DRIP STARTED FOR SEDATION. NEW 20GA IV SITE ESTABLISHED IN LEFT ANTECUBITAL. UNABLE TO GIVE INHALER DUE TO INTUBATION.
[2019-08-28] MEDS: ENOXAPARIN SODIUM 40 MG/0.4 ML DISP.SYRIN SQ SCH (14:55)
[2019-08-28] MEDS ORDERED: ETOMIDATE 2 MG/ML VIAL ONE (15:14)
[2019-08-28] MEDS ORDERED: ROCURONIUM BROMIDE 50 MG/5 ML ONE (15:14)
--- NOTE | 2019-08-28 16:00 | NUR ---
Z OS MAINFRAME SYSTEMS PROGRAMMER PROPOFOL TITRATED UP TO RESPONSE. PT SPO2 CONSISTENTLY 100%.
[2019-08-28] MEDS ORDERED: FEE PK DOSING 1 MIN EA MC ONE (16:15)
--- NOTE | 2019-08-28 18:00 | NUR ---
TEXTILE SCREEN PRINTER NO NEW C/O. PT'S UPDATED BY PHONE.
[2019-08-28] MEDS: CEFEPIME 2 GM in IV D5W 100 ML IV SCH (18:19)
[2019-08-28] MEDS: PROPOFOL 100 ML IV PRN (18:19)
[2019-08-28] MEDS: VANCOMYCIN 0.75 GM in IV D5W 250 ML IV SCH (18:20)
--- NOTE | 2019-08-28 19:30 | NUR ---
SKILLS AUDITOR NOTES RECEIVED PATIENT IN BED SEDATED, INTUBATED, VENT SETTING TOLERATING WELL ORDERED. CONTINUES ON PROPOFOL DRIP TOLERATING WELL. NO SOB, NO S/S OF ACUTE DISTRESS NOTED. BED BRUSHING OPERATOR READING SR IN 70'S. OGT IN PLACE. F/C DARNING YELLOW URINE WITH GRAVITY. IV SITES JILLIAN AND LT HAND INTACT PATENT FLUSHING WELL. ALL SAFETY MEASURES IN PLACE, BED IN LOW AND LOCKED POSITION. CALL LIGHT WITHIN REACH. WILL CONT TO MONITOR.
[2019-08-28] MEDS: HYDROXYCHLOROQUINE 200 MG/8 ML SUSPENSION GT SCH (20:52)
[2019-08-28] MEDS: DOXYCYCLINE HYCLATE (100 MG) 100 MG TABLET GT SCH (20:52)
[2019-08-28] MEDS: BACLOFEN (10 MG) 10 MG TABLET GT SCH (21:06)
[2019-08-28 21:27] LABS: ABG BASE EXCESS 3.9 mmol/L; ABG OXYGEN SATURATION 99.3 % (92.0-98.5); ABG PCO2 28.4 mmHg (35.0-45.0); ABG PH 7.573 (7.350-7.450); ABG PO2 196.8 mmHg (75.0-100.0); AaDO2 487.8 mmHg; COHb 0.3 % (0.5-1.5); MetHb 0.3 % (0.0-1.5); O2Hb 98.7 % (94.0-97.0); SITE, ABG Right Brachial
--- NOTE | 2019-08-28 21:36 | NUR ---
ANABEL done. Awaiting new orders from . Addendum: 08/28/19 at 2217 by SAMMIE ALMAGUER RT Amended: Links added.
--- NOTE | 2019-08-28 21:47 | NUR ---
Pt received intubated on [facility] vent with noted setting. Pt ett patent and secure via anchor fast. Pt tolerating setting well. No sob or distress noted on shift. Vent to red outlet. Ambu bag at [facility]. Continue current care plan and monitor for any changes. Addendum: 08/28/19 at 2151 by SAMMIE ALMAGUER RT Amended: Links added.
[2019-08-28] MEDS ORDERED: Medication Not On Formulary EA (Melatonin 3 MG) GT SCH (22:00)
[2019-08-28] MEDS ORDERED: AZITHROMYCIN 500 MG in IV D5W 250 ML IV SCH (23:30)
[2019-08-29] VITALS (41 sets, daily range): BP systolic 82–141; BP diastolic 36–79
--- NOTE | 2019-08-29 00:21 | NUR ---
DINING CAR WAITER/WAITRESS NOTES ALBUTEROL INHALER HELD PATIENT IS SEDATED ON PROPOFOL DRIP.
[2019-08-29] MEDS: PROPOFOL 100 ML IV PRN ×3 (02:40→20:45)
[2019-08-29] MEDS: HEPARIN SODIUM, PORCINE 5000 UNITS/1 ML VIAL SQ SCH (03:07)
[2019-08-29 04:30] LABS: PEEP,BG 5 cm H2O; VENT MODE, BG AC 20 500 100% +5; VT, ABG 500 mL
[2019-08-29 05:11] LABS: BASOPHILS # (AUTO) 0.1 /CMM (0.0-0.2); BASOPHILS % (AUTO) 0.4 % (0.0-2.0); EOSINOPHILS % (AUTO) 0.6 % (0.0-6.0); HEMATOCRIT 29 % (39-51); HEMOGLOBIN 9.2 g/dL (13.5-17.5); LYMPHOCYTES # (AUTO) 0.4 /CMM (0.8-4.8); LYMPHOCYTES % (AUTO) 3.2 % (20.0-44.0); MEAN CORPUSCULAR HGB CONC 31 g/dl (31.0-36.0); MEAN CORPUSCULAR VOLUME 98 fL (80-96); MONOCYTES # (AUTO) 0.5 /CMM (0.1-1.30); NEUTROPHILS # (AUTO) 11.6 /CMM (1.8-8.9); NEUTROPHILS % (AUTO) 91.8 % (43.0-81.0); PLATELET COUNT (AUTO) 140 /CMM (150-450); RED BLOOD CELL COUNT(AUTO) 2.99 MIL/uL (4.5-6.0); WHITE BLOOD COUNT (AUTO) 12.6 K/uL (4.3-11.0)
[2019-08-29 05:48] LABS: ALBUMIN 1.8 g/dL (3.4-5.0); BILIRUBIN,TOTAL 0.3 mg/dL (0.2-1.0); CALCIUM, SERUM 8.5 mg/dL (8.5-10.1); CREATININE 1.9 mg/dL (0.6-1.3); MAGNESIUM 2.8 mg/dL (1.8-2.4); PHOSPHORUS 3.1 mg/dL (2.5-4.9); POTASSIUM 3.3 mmol/L (3.5-5.1); TOTAL PROTEIN, SERUM 6.4 g/dL (6.4-8.2)
[2019-08-29] MEDS: IPRATROPIUM/ALBUTEROL INHALER IH SCH ×3 (06:00→12:40)
--- NOTE | 2019-08-29 07:21 | NUR ---
POST SPLITTER NOTE PATIENT RESTED WELL DURING SHIFT. CONT. ON DIPRIVAN DRIP TOLERATING WELL. VENT SETTING TOLERATING WELL ORDERED. IV'S INTACT PATENT FLUSHED WELL. ALL ROUTINE MEDICATIONS WERE GIVEN ORDERED, PATIENT TOLERATED WELL. ALL SAFETY MEASURES IN PLACE, BED IN LOW AND LOCKED POSITION. CALL LIGHT WITHIN REACH. WILL ENDORSE TO AM NURSE FOR DIANA.
[2019-08-29 08:44] LABS: ABG BASE EXCESS 5.4 mmol/L; ABG OXYGEN SATURATION 98.1 % (92.0-98.5); ABG PCO2 37.5 mmHg (35.0-45.0); ABG PH 7.504 (7.350-7.450); ABG PO2 112.3 mmHg (75.0-100.0); AaDO2 274.3 mmHg; COHb 0.8 % (0.5-1.5); MetHb 0.3 % (0.0-1.5); SITE, ABG Right Radial; VENT MODE, BG AC 16 500 60% +5
[2019-08-29] MEDS: ACIDOPHILUS/BULGARICUS 1 EACH TAB.CHEW GT SCH ×2 (09:26→17:30)
[2019-08-29] MEDS: ASCORBIC ACID 500 MG TABLET GT SCH (09:26)
[2019-08-29] MEDS: CALCIUM CARB 600MG /VIT D 1 EACH TABLET GT SCH (09:28)
[2019-08-29] MEDS: ZINC SULFATE 220 MG CAPSULE GT SCH (09:28)
[2019-08-29] MEDS: CHOLECALCIFEROL 1,000 UNIT TABLET (VIT D3) GT SCH (09:29)
[2019-08-29] MEDS: HYDROXYCHLOROQUINE 200 MG/8 ML SUSPENSION GT SCH (09:32)
[2019-08-29] MEDS: DOXYCYCLINE HYCLATE (100 MG) 100 MG TABLET GT SCH ×2 (09:32→21:04)
[2019-08-29] MEDS: OXCARBAZEPINE 150 MG TABLET GT SCH ×2 (09:34→17:34)
[2019-08-29] MEDS: HYDROCORTISONE SOD SUCCINATE 100 MG/2 ML VIAL IV SCH ×3 (09:39→17:30)
[2019-08-29] MEDS: ENOXAPARIN SODIUM 40 MG/0.4 ML DISP.SYRIN SQ SCH (09:46)
[2019-08-29] MEDS: PANTOPRAZOLE 40 MG VIAL IV SCH (09:52)
[2019-08-29] MEDS ORDERED: POTASSIUM CHLORIDE 20 MEQ POWDER PACKET GT ONE (10:00)
[2019-08-29] MEDS: CITALOPRAM HYDROBROMIDE 10 MG TABLET GT SCH (10:00)
[2019-08-29] MEDS: CEFEPIME 2 GM in IV D5W 100 ML IV SCH ×2 (10:06→21:04)
[2019-08-29] MEDS: IV D5W 1,000 ML IV PRN ×2 (10:12→21:11)
[2019-08-29] MEDS: VANCOMYCIN 0.75 GM in IV D5W 250 ML IV SCH (10:38)
[2019-08-29] MEDS: POTASSIUM CHLORIDE 20 MEQ POWDER PACKET GT SCH ×3 (10:53→12:49)
--- NOTE | 2019-08-29 16:00 | NUR ---
rn notes received patient in stable condition. breathing even and unlabored. vent setting well tolerated. on diprivan at 25mcg tolerating well. vital signs wnl. no physical manifestation of pain or discomfort. kept clean and dry.
--- NOTE | 2019-08-29 19:30 | NUR ---
JEWELRY SORTER NOTES RECEIVED PATIENT IN BED CONTINUE ON PROPOFOL DRIP FOR SEDATION TOLERATING WELL. NO S/S OF ACUTE DISTRESS NOTED. NO S/S OF PAIN OR DISCOMFORT NOTED. ON VENT SETTING TOLERATING WELL ORDERED. BED SIDE MONITOR SHOWS SINUS RAVI IN 57'S. GTF IN PLACE. F/C INTACT DARNING YELLOW URINE WITH GRAVITY. IV SITES INTACT PATENT FLUSHING WELL. SAFETY MEASURES IN PLACE, BED IN LOW AND LOCKED POSITION. CALL LIGHT WITHIN REACH. WILL CONT TO MONITOR.
[2019-08-29] MEDS: GLUCERNA 1.2 1,000 ML BOTTLE NG PRN (20:28)
[2019-08-29] MEDS ORDERED: HYDROXYCHLOROQUINE 200 MG/8 ML SUSPENSION GT SCH (21:00)
[2019-08-29] MEDS: BACLOFEN (10 MG) 10 MG TABLET GT SCH (23:07)
[2019-08-30] VITALS (33 sets, daily range): BP systolic 91–155; BP diastolic 52–98
[2019-08-30 04:46] LABS: BASOPHILS % (AUTO) 0.1 % (0.0-2.0); EOSINOPHILS % (AUTO) 0.5 % (0.0-6.0); HEMATOCRIT 32 % (39-51); HEMOGLOBIN 10.5 g/dL (13.5-17.5); LYMPHOCYTES # (AUTO) 0.6 /CMM (0.8-4.8); LYMPHOCYTES % (AUTO) 6.5 % (20.0-44.0); MEAN CORPUSCULAR HGB CONC 33 g/dl (31.0-36.0); MEAN CORPUSCULAR VOLUME 96 fL (80-96); MONOCYTES # (AUTO) 0.4 /CMM (0.1-1.30); NEUTROPHILS # (AUTO) 8.3 /CMM (1.8-8.9); NEUTROPHILS % (AUTO) 88.9 % (43.0-81.0); PLATELET COUNT (AUTO) 144 /CMM (150-450); RED BLOOD CELL COUNT(AUTO) 3.33 MIL/uL (4.5-6.0); WHITE BLOOD COUNT (AUTO) 9.4 K/uL (4.3-11.0)
[2019-08-30] MEDS: VANCOMYCIN 0.75 GM in IV D5W 250 ML IV SCH ×2 (05:01→23:04)
[2019-08-30 05:07] LABS: CREATININE 1.6 mg/dL (0.6-1.3); POTASSIUM 3.8 mmol/L (3.5-5.1)
[2019-08-30 05:14] LABS: CALCIUM, SERUM 8.8 mg/dL (8.5-10.1)
[2019-08-30] MEDS: IPRATROPIUM/ALBUTEROL INHALER IH SCH ×5 (06:00→23:51)
--- NOTE | 2019-08-30 06:00 | NUR ---
RT NOTES PT ORALLY INTUBATED WITH 8.0 ETT PROPERLY SECURED AT 24 CM LIP ALEXI. VENT ALARMS ON AND WELL AUDIBLE AND PLUGGED INTO RED OUTLET. NO SOB OR DISTRESS NOTED. SX PRN LARGE THICK BLOOD TINGED/ PALE YELLOW SECRETIONS. NO DISTRESS/ OR CHANGES IN PT CONDITION NOTED ALL SHIFT.
--- NOTE | 2019-08-30 06:00 | NUR ---
BED BATH GIVEN PATIENT TOLERATED WELL. INHALER HELD PATIENT IS SEDATED.
[2019-08-30] MEDS: PROPOFOL 100 ML IV PRN ×3 (06:19→23:29)
--- NOTE | 2019-08-30 06:34 | NUR ---
POT ANNEALER NOTE PATIENT RESTED WELL DURING SHIFT. CONT. ON DIPRIVAN DRIP TOLERATING WELL. VENT SETTING TOLERATING WELL ORDERED. IV'S INTACT PATENT FLUSHED WELL. GTF TOLERATING WELL 10ML RESIDUAL NOTED. F/C INTACT YELLOW URINE DARNING WITH GRAVITY. ALL ROUTINE MEDICATIONS WERE GIVEN ORDERED, PATIENT TOLERATED WELL. ALL SAFETY MEASURES IN PLACE, BED IN LOW AND LOCKED POSITION. CALL LIGHT WITHIN REACH. WILL ENDORSE TO AM NURSE FOR DIANA.
--- NOTE | 2019-08-30 07:20 | NUR ---
RN INITIAL NOTES RECEIVED PT INTUBATED,. ON VENT. NO RESPIRATORY DISTRESS NOTED. NO SIGNS OF PAIN NOTED. PT SEDATED, ON DIPRIVAN AT 25MCG/KG/MIN. WILL TITRATE ACCORDINGLY. IV LINES IN PLACE. IVF INFUSING. G-TUBE IN PLACE, TOLERATING TUBE FEEDING WELL. VILLA IN PLACE. BLE ELEVATED. WILL CONTINUE TO MONITOR
--- NOTE | 2019-08-30 08:13 | NUR ---
WOUND CARE CONSULT: PT SEEN FOR LOW MELANY SCORE. PT PRESENTS WITH SACRAL SCARRING, PRESENT ON ADMISSION. RECOMMENDATIONS MADE FOR SKIN PROTECTION AND DISCUSSED WITH NURSING STAFF. FIRST STEP LOW AIRLOSS MATTRESS ORDERED. CURRENT MELANY SCORE IS 12. MD IN AGREEMENT WITH PLAN OF CARE.
[2019-08-30 08:34] LABS: ABG BASE EXCESS 0.3 mmol/L; ABG OXYGEN SATURATION 96.5 % (92.0-98.5); ABG PCO2 38.9 mmHg (35.0-45.0); ABG PO2 89.8 mmHg (75.0-100.0); AaDO2 295.2 mmHg; COHb 0.2 % (0.5-1.5); O2Hb 96.3 % (94.0-97.0); SITE, ABG Right Radial; VENT MODE, BG AC 16 450 +5 60%
[2019-08-30] MEDS: OXCARBAZEPINE 150 MG TABLET GT SCH ×2 (08:42→16:46)
[2019-08-30] MEDS: PANTOPRAZOLE 40 MG VIAL IV SCH (08:42)
[2019-08-30] MEDS: CITALOPRAM HYDROBROMIDE 10 MG TABLET GT SCH (08:42)
[2019-08-30] MEDS: CEFEPIME 2 GM in IV D5W 100 ML IV SCH ×2 (08:42→21:00)
[2019-08-30] MEDS: HYDROCORTISONE SOD SUCCINATE 100 MG/2 ML VIAL IV SCH ×3 (08:42→16:46)
[2019-08-30] MEDS: CHOLECALCIFEROL 1,000 UNIT TABLET (VIT D3) GT SCH (08:43)
[2019-08-30] MEDS: DOXYCYCLINE HYCLATE (100 MG) 100 MG TABLET GT SCH ×2 (08:43→20:54)
[2019-08-30] MEDS: ACIDOPHILUS/BULGARICUS 1 EACH TAB.CHEW GT SCH ×2 (08:43→16:46)
[2019-08-30] MEDS: CALCIUM CARB 600MG /VIT D 1 EACH TABLET GT SCH (08:43)
[2019-08-30] MEDS: ASCORBIC ACID 500 MG TABLET GT SCH (08:43)
[2019-08-30] MEDS: ZINC SULFATE 220 MG CAPSULE GT SCH (08:43)
--- NOTE | 2019-08-30 09:30 | NUR ---
RN NOTES 0830 SEEN AND EXAMINED BY DR LEHMAN. PT INTUBATED, ON VENT. SINUS BRADYCARDIA ON MONITOR. TOLERATING G-TUBE FEEDING WELL. AWARE OF LAB VALUES AND CXR RESULT. MD CALLED LUX () TO DISCUSS CONDITION AND PLAN OF CARE. CODE STATUS CHANGED TO DNR/DNI. 0900 SEEN AND EXAMINED BY DR CHI. PT OFF SEDATION. OPEN EYES, MOVES TO PAIN. DOES NOT FOLLOW COMMANDS. PER MD, KEEP OFF SEDATION TOLERATED. WILL CLOSELY MONITOR.
[2019-08-30] MEDS: LORAZEPAM INJ 2 MG/ML VIAL IVP PRN ×2 (11:34→21:44)
[2019-08-30] MEDS: IV D5W 1,000 ML IV PRN (12:38)
[2019-08-30] MEDS: GLUCERNA 1.2 1,000 ML BOTTLE NG PRN (16:47)
--- NOTE | 2019-08-30 18:34 | NUR ---
RN CLOSING NOTES NO SIGNIFICANT CHANGE NOTED. PT REMAINS INTUBATED, ON VENT. NO RESPIRATORY DISTRESS NOTED. NO SOB NOTED. NO SIGNS OF PAIN NOTED. TOLERATING GTF WELL. FC IN PLACE. KEPT CLEAN AND DRY. REPOSITIONED Q2. FOR WEANING TRIAL IN AM. WILL ENDORSE FOR CONTINUITY OF CARE.
--- NOTE | 2019-08-30 19:30 | NUR ---
FIRMWARE TEST ENGINEER NOTES RECEIVED REPORT FORM NIGHT NURSE. PATIENT CONTINUES ON SEDATION, ON VENT SETTING TOLERATING WELL. SINUS RHYTHM ON TELE MONITOR. GT IN PLACE FEEDING TOLERATING WELL ORDERED. IV LINES INTACT PATENT FLUSHING WELL. F/C INTACT DARNING WELL WITH GRAVITY. ABD SOFT AND NON DISTENDED. SKIN WARM AND DRY TO TOUCH. SAFETY MEASURES IN PLACE, BED IN LOW AND LOCKED POSITION. CALL LIGHT WITHIN REACH. WILL CONT TO MONITOR.
--- NOTE | 2019-08-30 19:37 | NUR ---
RT NOTE PT RECEIVED ORALLY INTUBATED WITH ET TUBE 7.5 @ 24 LIP LINE. CUFF CHECKED VIA STNA. AMBU BAG/BACK UP TRACH @ BEDSIDE. PT RECEIVING ADEQUATE VOLUMES. SX DONE, ET TUBE SECURED AND PATENT. ALARMS ON AND AUDIBLE. VENT PLUGGED TO RED OUTLET. NO DISTRESS NOTED. WILL CONTINUE TO MONITOR T/O SHIFT. Addendum: 08/31/19 at 0336 by ALIA CHIU RT Amended: Links added.
[2019-08-30] MEDS: BACLOFEN (10 MG) 10 MG TABLET GT SCH (21:03)
--- NOTE | 2019-08-30 21:44 | NUR ---
RN NOTE PATIENT NOTED NOT GETTING ENOUGH TIDAL VOLUME. MACHINE HAS A HUGE AIR LEAKAGE. ALARM ON AND AUDIBLE. RT NOTIFIED.
--- NOTE | 2019-08-30 21:45 | NUR ---
RT NOTE PT NOTED WITH DEFECTIVE CUFF. ORDER TO RE-INTUBATE WITH NEW ET TUBE PENDING. MONITORING PT CLOSELY @ BEDSIDE. PT SPO2 @ 100%. NO DISTRESS NOTED. RN MARK AND CHARGE NURSE LATRELL AWARE. ALARMS ON AND AUDIBLE.
--- NOTE | 2019-08-30 21:46 | NUR ---
RN NOTE RT AT BED SIDE. ATTEMPTED TO ADD AIR IN THE BALLOON INEFFECTIVE. ROXANNE DNP NOTIFIED AND DECIDED TO RE-INTUBATE THE PATIENT.
--- NOTE | 2019-08-30 23:23 | NUR ---
RN NOTE DR BOOKER ARRIVED TO RE-INTUBATE THE PATIENT.
--- NOTE | 2019-08-30 23:30 | NUR ---
RT NOTE PT REINTUBATED DUE TO DEFECTIVE CUFF AND LEAK. ANESTHESIOLOGIST REINTUBATED WITH 7.0 @ 23 LIP LINE. ET TUBE SECURED VIA ANCHOR FAST. CUFF INFLATED. ET TUBE IN RIGHT PLACEMENT, CHEST RISE AND CLEAR B/S NOTED BILATERALLY. NO DISTRESS NOTED. WILL CONTINUE TO MONITOR CLOSELY.
--- NOTE | 2019-08-30 23:30 | NUR ---
CASHIER MANAGER NOTE RE-INTUBATION WAS SUCCESSFULLY DONE AFTER SEVERAL ATTEMPT, PATIENT TOLERATED WELL. PATIENT IS IN STABLE CONDITION NO S/S OF ACUTE DISTRESS NOTED. WILL CONT TO MONITOR.
[2019-08-31] VITALS (25 sets, daily range): BP systolic 112–162; BP diastolic 58–121
[2019-08-31] MEDS: IV D5W 1,000 ML IV PRN ×2 (04:10→22:40)
[2019-08-31 04:35] LABS: BASOPHILS % (AUTO) 0.2 % (0.0-2.0); EOSINOPHILS % (AUTO) 1.1 % (0.0-6.0); HEMATOCRIT 33 % (39-51); HEMOGLOBIN 10.7 g/dL (13.5-17.5); LYMPHOCYTES # (AUTO) 0.7 /CMM (0.8-4.8); LYMPHOCYTES % (AUTO) 8.6 % (20.0-44.0); MEAN CORPUSCULAR HGB CONC 32 g/dl (31.0-36.0); MEAN CORPUSCULAR VOLUME 97 fL (80-96); MONOCYTES # (AUTO) 0.7 /CMM (0.1-1.30); MONOCYTES % (AUTO) 8.5 % (2.0-12.0); NEUTROPHILS # (AUTO) 6.7 /CMM (1.8-8.9); NEUTROPHILS % (AUTO) 81.6 % (43.0-81.0); PLATELET COUNT (AUTO) 154 /CMM (150-450); RED BLOOD CELL COUNT(AUTO) 3.45 MIL/uL (4.5-6.0); WHITE BLOOD COUNT (AUTO) 8.2 K/uL (4.3-11.0)
[2019-08-31 04:56] LABS: CALCIUM, SERUM 8.5 mg/dL (8.5-10.1); CREATININE 1.4 mg/dL (0.6-1.3); POTASSIUM 3.6 mmol/L (3.5-5.1)
[2019-08-31] MEDS: PROPOFOL 100 ML IV PRN (05:36)
[2019-08-31] MEDS: IPRATROPIUM/ALBUTEROL INHALER IH SCH ×4 (05:47→23:57)
--- NOTE | 2019-08-31 06:30 | NUR ---
RN NOTE NOTIFIED SPOUSE ABOUT PATIENT WAS RE-INTUBATED, PATIENT'S SPOUSE IS OKAY WITH RE- INTUBATION NO FURTHER QUESTIONS ASKED.
--- NOTE | 2019-08-31 06:52 | NUR ---
MEDICAL DOCTOR MD/MEDICAL DIRECTOR NOTES PATIENT REMAINED SEDATED NO S/S OF DISTRESS NOTED. ROUTINE MEDICATIONS WERE GIVEN ORDERED PATIENT TOLERATED WELL. IV'S INTACT PATENT NS AND PROPOFOL RUNNING WELL. GTF @55ML/HR TOLERATING WELL. F/C INTACT DARNING WELL. SAFETY MEASURES IN PLACE, BED IN LOW AND LOCKED POSITION. CALL LIGHT WITHIN REACH. WILL ENDORSE TO AM NURSE FOR DIANA.
--- NOTE | 2019-08-31 07:30 | NUR ---
TAKE DOWN SORTER NOTE RECEIVED PT, ORALLY INTUBATED WITH ET TUBE SECURED AND PATENT, 7.0 LIP, PT ON VENT AND TOLERATING CURRENT SETTINGS, CURRENTLY SB ON MONITOR, IN NO RESPIRATORY DISTRESS NOTED AT THIS TIME. AMBU BAG AT HOB, LEFT AC G 20 AND LEFT HAND G18 WITH 45 MCG DIPRIVAN INFUSING, D5W AT 70 ML/HR, ON GLUCERNA 1.5 AT 50 ML/HR. O RESIDUAL. VILLA CATH DRAINING YELLOW URINE. WITH LEFT SOFT WRIST RESTRAINT, RELEASED AND CHECKED FOR CIRCULATION THEN EVERY 2 HOURS. WILL TURN AND REPOSITION Q 2 HOURS FOR COMFORT. SAFETY MEASURES IN PLACE, SIDE RAILS UP X 2 WILL CONTINUE TO MONITOR PT
[2019-08-31] MEDS: CEFEPIME 2 GM in IV D5W 100 ML IV SCH ×2 (09:23→21:00)
[2019-08-31] MEDS: ZINC SULFATE 220 MG CAPSULE GT SCH (09:25)
[2019-08-31] MEDS: PANTOPRAZOLE 40 MG VIAL IV SCH (09:25)
[2019-08-31] MEDS: CHOLECALCIFEROL 1,000 UNIT TABLET (VIT D3) GT SCH (09:25)
[2019-08-31] MEDS: ASCORBIC ACID 500 MG TABLET GT SCH (09:25)
[2019-08-31] MEDS: HYDROCORTISONE SOD SUCCINATE 100 MG/2 ML VIAL IV SCH ×3 (09:25→16:50)
[2019-08-31] MEDS: ACIDOPHILUS/BULGARICUS 1 EACH TAB.CHEW GT SCH ×2 (09:25→16:50)
[2019-08-31] MEDS: CITALOPRAM HYDROBROMIDE 10 MG TABLET GT SCH (09:26)
[2019-08-31] MEDS: CALCIUM CARB 600MG /VIT D 1 EACH TABLET GT SCH (09:26)
[2019-08-31] MEDS: OXCARBAZEPINE 150 MG TABLET GT SCH ×2 (09:26→16:50)
[2019-08-31] MEDS: DOXYCYCLINE HYCLATE (100 MG) 100 MG TABLET GT SCH ×2 (09:26→20:57)
--- NOTE | 2019-08-31 09:30 | NUR ---
RN NOTES DUE MEDS GIVEN
[2019-08-31] MEDS ORDERED: ROCURONIUM BROMIDE 50 MG/5 ML IV ONE (09:56)
[2019-08-31] MEDS ORDERED: PROPOFOL 200 MG/20 ML VIAL IV ONE (09:56)
[2019-08-31] MEDS ORDERED: SUCCINYLCHOLINE CHLORIDE 20 MG/ML VIAL IV ONE (09:56)
[2019-08-31] MEDS ORDERED: LIDOCAINE 100MG/5ML DISP SYR IV ONE (09:56)
[2019-08-31] MEDS: hydrALAZINE HCL 25 MG TABLET GT PRN ×2 (10:03→18:44)
[2019-08-31] MEDS: ONDANSETRON HCL/PF 4 MG/2 ML VIAL IV PRN ×2 (10:12→16:18)
[2019-08-31 10:14] LABS: ABG BASE EXCESS 6.5 mmol/L; ABG OXYGEN SATURATION 95.5 % (92.0-98.5); ABG PH 7.445 (7.350-7.450); ABG PO2 78.4 mmHg (75.0-100.0); AaDO2 152.8 mmHg; COHb 0.7 % (0.5-1.5); MetHb 0.2 % (0.0-1.5); O2Hb 94.6 % (94.0-97.0); SITE, ABG Right Radial; VENT MODE, BG SIMV 4 PS 15 40% +5
--- NOTE | 2019-08-31 10:30 | NUR ---
RN NOTES FOR POSSIBLE EXTUBATION. FAMILY AT BEDSIDE DR. CHI SPOKE WITH EARLIER PER , SHE WANTS HER OFF THE VENT. REMOVE TRACH AND IF HE DESATURATED AGAIN, PER , NO MORE INTUBATION.
[2019-08-31] MEDS: GLUCERNA 1.2 1,000 ML BOTTLE NG PRN (14:27)
--- NOTE | 2019-08-31 14:55 | NUR ---
RN TIFFANIE MONGE RESPIRATORY THERAPIST AT BEDSIDE, PATIENT ASSESSED, WILL NOT EXTUBATE PATIENT FOR NOW, WILL PUT ON CPAP MODE. PATIENT CALM.
[2019-08-31] MEDS ORDERED: METOCLOPRAMIDE HCL 10 MG TABLET PO PRN (15:30)
--- NOTE | 2019-08-31 17:00 | NUR ---
RN NOTES DR. CHI AWARE, PT WILL REMAIN ON SIMV FOR NOW. WILL SEE PATIENT TOMORROW. DESIREE CHARGE NURSE AWARE WELL.
--- NOTE | 2019-08-31 19:17 | NUR ---
DAIRY AND FOOD LABORATORY ASSISTANT CLOSING NOTE PT RESTING, ORALLY INTUBATED WITH ET TUBE SECURED AND PATENT, 7.0 LIP, PT ON VENT AND TOLERATING CURRENT SETTINGS, CURRENTLY SR ON MONITOR, IN NO RESPIRATORY DISTRESS NOTED AT THIS TIME. AMBU BAG AT HOB, LEFT AC G 20 AND LEFT HAND G18, FLUSHES WELL, NOW WITH LASHAE MIDLINE WITH D5W AT 70 ML/HR, ON GLUCERNA 1.5 AT 50 ML/HR. O RESIDUAL. TURNED OFF FOR NOW DUE TO VOMITING . VILLA CATH DRAINING YELLOW URINE 1175 ML OUTPUT. WITH LEFT SOFT WRIST RESTRAINT, RELEASED AND CHECKED FOR CIRCULATION EVERY 2 HOURS. TURNED AND REPOSITIONED Q 2 HOURS FOR COMFORT. SAFETY MEASURES IN PLACE, HOB UP, SIDE RAILS UP X 2. ALL NEEDS MET, ENDORSED TO NEXT SHIFT FOR DIANA.
--- NOTE | 2019-08-31 19:30 | NUR ---
LABORATORY CHIEF NOTES RECEIVED REPORT FORM NIGHT NURSE. PATIENT OFF SEDATION, ON VENT SETTING TOLERATING WELL. SINUS RHYTHM ON TELE MONITOR. GT IN PLACE FEEDING TOLERATING WELL ORDERED. LASHAE MID LINE INTACT PATENT FLUSHING WELL. F/C INTACT DARNING WELL WITH GRAVITY. ABD SOFT AND NON DISTENDED. SKIN WARM AND DRY TO TOUCH. SAFETY MEASURES IN PLACE, BED IN LOW AND LOCKED POSITION. CALL LIGHT WITHIN REACH. WILL CONT TO MONITOR.
[2019-08-31] MEDS: BACLOFEN (10 MG) 10 MG TABLET GT SCH (21:02)
[2019-08-31] MEDS ORDERED: VANCOMYCIN 0.75 GM in IV D5W 250 ML IV SCH (23:00)
[2019-09-01] VITALS (20 sets, daily range): BP systolic 117–165; BP diastolic 60–105
[2019-09-01 04:30] LABS: BASOPHILS % (AUTO) 0.2 % (0.0-2.0); EOSINOPHILS % (AUTO) 0.3 % (0.0-6.0); HEMATOCRIT 32 % (39-51); HEMOGLOBIN 10.3 g/dL (13.5-17.5); LYMPHOCYTES # (AUTO) 0.9 /CMM (0.8-4.8); LYMPHOCYTES % (AUTO) 8.8 % (20.0-44.0); MEAN CORPUSCULAR HGB CONC 33 g/dl (31.0-36.0); MEAN CORPUSCULAR VOLUME 95 fL (80-96); MONOCYTES # (AUTO) 0.9 /CMM (0.1-1.30); MONOCYTES % (AUTO) 8.8 % (2.0-12.0); NEUTROPHILS # (AUTO) 8.8 /CMM (1.8-8.9); NEUTROPHILS % (AUTO) 81.9 % (43.0-81.0); PLATELET COUNT (AUTO) 161 /CMM (150-450); RED BLOOD CELL COUNT(AUTO) 3.33 MIL/uL (4.5-6.0); WHITE BLOOD COUNT (AUTO) 10.7 K/uL (4.3-11.0)
[2019-09-01 04:31] LABS: CALCIUM, SERUM 8.3 mg/dL (8.5-10.1); CREATININE 1.3 mg/dL (0.6-1.3); POTASSIUM 3.1 mmol/L (3.5-5.1)
[2019-09-01] MEDS: hydrALAZINE HCL 25 MG TABLET GT PRN (04:41)
[2019-09-01] MEDS: IPRATROPIUM/ALBUTEROL INHALER IH SCH ×3 (06:24→18:26)
--- NOTE | 2019-09-01 07:06 | NUR ---
GENERAL SALES MANAGER NOTES ENDORSE PATIENT TO AM NURSE. PATIENT OFF SEDATION ON VENT SETTING TOLERATING WELL ORDERED. DUE MEDICATIONS WERE GIVEN ORDERED ALONG WITH PRN'S TOLERATED WELL. GTF TOLERATING WELL. F/C INTACT DARNING WELL. NO ACUTE DISTRESS NOTED. TELE READING SR. KEPT CLEAN DRY AND COMFORTABLE. ALL NEEDS ATTENDED. SAFETY MEASURES IN PLACE. CALL LIGHT WITHIN REACH.
--- NOTE | 2019-09-01 07:45 | NUR ---
TANK ERECTOR: pt is without sedation, R.wrist restrain, awake, eyes contact+, rest, unable to follow commands, on SIMV mode/FiO2 40%, no SOB, O2sat over 96%, SR, SBP below 150 now/over 100, night nurse ANAYELI Abarca reported IVF NS@70ml/h, in room/eMAR: D5W, GTF 55 ml/h reported, in eMAR: 30ml/h, in room: 50 ml/h, will reevaluate orders, GTF residual: 10ml, f/c: 800ml/12hr, sacral redness skin reported/[employer] mattress+, LASHAE midline ok, oriented pt for POC, is in room, updated with all above, ordered K+ replacement/K3.1, see new orders
[2019-09-01] MEDS ORDERED: DC PROPOFOL WHEN EXTUBATED XX PRN (08:00)
[2019-09-01] MEDS ORDERED: POTASSIUM CL. PREMIX PERIPHER. 50 ML IV SCH (08:00)
[2019-09-01] MEDS: ACIDOPHILUS/BULGARICUS 1 EACH TAB.CHEW GT SCH ×2 (08:34→16:45)
[2019-09-01] MEDS: OXCARBAZEPINE 150 MG TABLET GT SCH ×2 (08:34→16:45)
[2019-09-01] MEDS: ASCORBIC ACID 500 MG TABLET GT SCH (08:34)
[2019-09-01] MEDS: DOXYCYCLINE HYCLATE (100 MG) 100 MG TABLET GT SCH ×2 (08:34→21:53)
[2019-09-01] MEDS: CHOLECALCIFEROL 1,000 UNIT TABLET (VIT D3) GT SCH (08:34)
[2019-09-01] MEDS: CALCIUM CARB 600MG /VIT D 1 EACH TABLET GT SCH (08:34)
[2019-09-01] MEDS: PANTOPRAZOLE 40 MG VIAL IV SCH (08:35)
[2019-09-01] MEDS: HYDROCORTISONE SOD SUCCINATE 100 MG/2 ML VIAL IV SCH ×3 (08:35→16:45)
[2019-09-01] MEDS: CITALOPRAM HYDROBROMIDE 10 MG TABLET GT SCH (08:35)
[2019-09-01] MEDS: CEFEPIME 2 GM in IV D5W 100 ML IV SCH ×2 (08:35→21:53)
--- NOTE | 2019-09-01 08:40 | NUR ---
COOLER SUPERVISOR: is in room for possible extubation evaluation, update with pt current condition, VS, neuro status, suction amount, spoke with Belinda(pt ), see new orders
--- NOTE | 2019-09-01 09:01 | NUR ---
OFFICE SYSTEM ANALYST: notified RT re extubation order
[2019-09-01] MEDS: ZINC SULFATE 220 MG CAPSULE GT SCH (09:10)
[2019-09-01] MEDS: POTASSIUM CHLORIDE 20 MEQ POWDER PACKET GT SCH ×2 (09:11→10:37)
--- NOTE | 2019-09-01 09:20 | NUR ---
BPM ARCHITECT: pt is extubated, tolerated well on 4L nc, O2sat. over 96%, no SOB, awake, rest, eyes contact+, weak, unable to follow commands, d/c restraints
--- NOTE | 2019-09-01 09:58 | NUR ---
GREENS PLANTER: MARLEN Ricketts updated
--- NOTE | 2019-09-01 11:30 | NUR ---
GEAR AND SPLINE GRINDER: pt. called/updated
--- NOTE | 2019-09-01 13:50 | NUR ---
WOOD ROOM HAND: pt removed O2 n/c x2, uncooperative, can touch and pull GT, applied L.wrist restrain, R.site weakness/ s/p CVA
[2019-09-01] MEDS: ONDANSETRON HCL/PF 4 MG/2 ML VIAL IV PRN (14:16)
--- NOTE | 2019-09-01 14:19 | NUR ---
REGIONAL BRANCH MANAGER: pt c/o nausea, GTF residual is 40ml, hold GTF for 1 hr, keep HOB 45, BG 103, Zofran 4 mg iv given
--- NOTE | 2019-09-01 15:00 | NUR ---
LOSS MITIGATION SPECIALIST: pt.got explanation for POC, orders with Kinyarwanda translation, no c/o now, nausea gone, more awake, can answer simple Q, SR, SBP over 90 below 150, O2sat. over 94% on 4L n/c, no SOB, GT residual 15ml/resumed GTF, keep HOB over 40
[2019-09-01] MEDS: IV D5W 1,000 ML IV PRN (15:07)
--- NOTE | 2019-09-01 15:45 | NUR ---
SENIOR GRANTS OFFICER: per charge nurse pt got transfer order to [facility] per
--- NOTE | 2019-09-01 17:00 | NUR ---
CALL WORKER PERSON: transferred pt to [facility] after full report was given for ANAYELI Sneed
--- NOTE | 2019-09-01 17:10 | NUR ---
Patient transferred from ICU, admitting Dx; Sepsis reported by Chong/ANAYELI. In stable vital signed. V/S: bp-141/86, p-91, r-21, t-98.8, p-90. Will continue to monitor.
--- NOTE | 2019-09-01 18:30 | NUR ---
MS/RN Closing note Patient is on bed, comfortably, does no appears pain or any discomfort. Skin is warm to touch, kept clean/dry, intact mid line site. Respiratory even and unlabored with oxygen at 4LPM, no distress observed. Keep low position of the bed with locked wheel and elevated HOB for secure airway. Call light within reach, will continue to monitor.
[2019-09-01] MEDS: BACLOFEN (10 MG) 10 MG TABLET GT SCH (21:53)
[2019-09-01] MEDS: GLUCERNA 1.2 1,000 ML BOTTLE NG PRN (21:57)
[2019-09-02] MEDS: IPRATROPIUM/ALBUTEROL INHALER IH SCH ×4 (00:25→18:00)
[2019-09-02] MEDS: MORPHINE SULFATE INJ 4 MG/ML DISP.SYRIN IV PRN ×3 (02:36→16:54)
[2019-09-02] MEDS: IV D5W 1,000 ML IV PRN ×2 (05:11→20:39)
--- NOTE | 2019-09-02 05:38 | NUR ---
MS/TELE/RN MORNING CARE WAS DONE, TOTAL LINEN CARE WAS RENDERED, F/C CARE WAS DONE, REPOSITIONED TO COMFORT, WILL CONTINUE TO MONITOR.
--- NOTE | 2019-09-02 06:32 | NUR ---
MS/TELE/RN PATIENT IS AWAKE, COMFORTABLE, NO SIGNS OF DISTRESS NOTED, HOB ELEVATED, ALL NEEDS ATTENDED AT THIS TIME, WILL CONTINUE TO MONITOR.
[2019-09-02 06:46] LABS: BASOPHILS % (AUTO) 0.2 % (0.0-2.0); EOSINOPHILS % (AUTO) 0.8 % (0.0-6.0); HEMATOCRIT 34 % (39-51); HEMOGLOBIN 10.9 g/dL (13.5-17.5); LYMPHOCYTES % (AUTO) 10.2 % (20.0-44.0); MEAN CORPUSCULAR HGB CONC 32 g/dl (31.0-36.0); MEAN CORPUSCULAR VOLUME 97 fL (80-96); MONOCYTES # (AUTO) 0.9 /CMM (0.1-1.30); MONOCYTES % (AUTO) 8.7 % (2.0-12.0); NEUTROPHILS # (AUTO) 8.1 /CMM (1.8-8.9); NEUTROPHILS % (AUTO) 80.1 % (43.0-81.0); PLATELET COUNT (AUTO) 152 /CMM (150-450); RED BLOOD CELL COUNT(AUTO) 3.47 MIL/uL (4.5-6.0); WHITE BLOOD COUNT (AUTO) 10.1 K/uL (4.3-11.0)
[2019-09-02 06:57] LABS: CALCIUM, SERUM 8.5 mg/dL (8.5-10.1); CREATININE 1.2 mg/dL (0.6-1.3)
--- NOTE | 2019-09-02 06:57 | NUR ---
RT DAILY ABGS CANCELLED PER POLICY. PATIENT NO LONGER IN ICU AND DOES NOT REQUIRE DAILY ABGS
--- NOTE | 2019-09-02 07:30 | NUR ---
PT RECEIVED RESTING COMFORTABLY IN BED WITH EYES CLOSED. NO S/S OR C/O PAIN OR DISTRESS NOTED. SIDE RAILS UP X2, CALL LIGHT LEFT WITHIN REACH. WILL CONTINUE PLAN OF CARE.
[2019-09-02 08:00] VITALS: BP 131/91
[2019-09-02] MEDS: ASCORBIC ACID 500 MG TABLET GT SCH (09:27)
[2019-09-02] MEDS: DOXYCYCLINE HYCLATE (100 MG) 100 MG TABLET GT SCH (09:27)
[2019-09-02] MEDS: CHOLECALCIFEROL 1,000 UNIT TABLET (VIT D3) GT SCH (09:27)
[2019-09-02] MEDS: PANTOPRAZOLE 40 MG VIAL IV SCH (09:27)
[2019-09-02] MEDS: ZINC SULFATE 220 MG CAPSULE GT SCH (09:27)
[2019-09-02] MEDS: ACIDOPHILUS/BULGARICUS 1 EACH TAB.CHEW GT SCH ×2 (09:27→16:52)
[2019-09-02] MEDS: CITALOPRAM HYDROBROMIDE 10 MG TABLET GT SCH (09:27)
[2019-09-02] MEDS: CEFEPIME 2 GM in IV D5W 100 ML IV SCH ×2 (09:27→21:30)
[2019-09-02] MEDS: CALCIUM CARB 600MG /VIT D 1 EACH TABLET GT SCH (09:28)
[2019-09-02] MEDS: OXCARBAZEPINE 150 MG TABLET GT SCH ×2 (09:28→16:53)
[2019-09-02] MEDS: HYDROCORTISONE SOD SUCCINATE 100 MG/2 ML VIAL IV SCH ×3 (09:28→16:52)
[2019-09-02 16:00] VITALS: BP 148/94
[2019-09-02] MEDS ORDERED: GUAIFENESIN 300 MG/15 ML UDC PO PRN (16:30)
--- NOTE | 2019-09-02 18:48 | NUR ---
CHANGE OF SHIFT REPORT PT RESTING COMFORTABLY IN BED. NO S/S OR C/O PAIN OR DISTRESS NOTED. SIDE RAILS UP X2, CALL LIGHT LEFT WITHIN REACH. PT KEPT CLEAN, DRY, AND COMFORTABLE. NO SIGNIFICANT CHANGES SINCE PREVIOUS SHIFT. WILL GIVE REPORT TO LINDA GUADALUPE.
[2019-09-02 20:34] VITALS: BP 154/84
[2019-09-02] MEDS: GLUCERNA 1.2 1,000 ML BOTTLE NG PRN (21:00)
[2019-09-02] MEDS: BACLOFEN (10 MG) 10 MG TABLET GT SCH (21:30)
[2019-09-03] MEDS: IPRATROPIUM/ALBUTEROL INHALER IH SCH ×4 (06:00→17:09)
--- NOTE | 2019-09-03 06:26 | NUR ---
MS/TELE/RN PATIENT IS AWAKE, COMFORTABLE, NO SIGNS OF DISTRESS NOTED, ON AND OFF SLEEP NOTED THE WHOLE SHIFT, ALL NEEDS ATTENDED AT THIS TIME, WILL CONTINUE TO MONITOR.
[2019-09-03 07:22] LABS: BASOPHILS % (AUTO) 0.4 % (0.0-2.0); EOSINOPHILS % (AUTO) 1.6 % (0.0-6.0); HEMATOCRIT 29 % (39-51); HEMOGLOBIN 9.6 g/dL (13.5-17.5); LYMPHOCYTES # (AUTO) 1.1 /CMM (0.8-4.8); LYMPHOCYTES % (AUTO) 9.1 % (20.0-44.0); MEAN CORPUSCULAR HGB CONC 33 g/dl (31.0-36.0); MEAN CORPUSCULAR VOLUME 93 fL (80-96); MONOCYTES # (AUTO) 1.1 /CMM (0.1-1.30); MONOCYTES % (AUTO) 8.9 % (2.0-12.0); NEUTROPHILS # (AUTO) 9.9 /CMM (1.8-8.9); PLATELET COUNT (AUTO) 207 /CMM (150-450); RED BLOOD CELL COUNT(AUTO) 3.13 MIL/uL (4.5-6.0); WHITE BLOOD COUNT (AUTO) 12.4 K/uL (4.3-11.0)
[2019-09-03 07:23] LABS: CALCIUM, SERUM 8.2 mg/dL (8.5-10.1); CREATININE 1.1 mg/dL (0.6-1.3); POTASSIUM 3.9 mmol/L (3.5-5.1)
[2019-09-03 08:00] VITALS: BP 155/80
--- NOTE | 2019-09-03 08:00 | NUR ---
MS RN OPENING NOTES RECEIVED PT IN BED AWAKE ALERT AND ORIENTED X 1. PT IS CONFUSED AND APHASIC. PT ON O2 AT 4L/MIN SATURATING AT 95%. NO CARDIAC OR RESPIRATORY DISTRESS NOTED. NO S/S OF PAIN OR DISCOMFORT. PT IS BED BOUND WITH MULTIPLE CONTRACTURES. ON GT FEEDING WITH GLUCERNA RUNNING AT 55ML/HR. GT SITE INTACT AND PATENT AND FLUSHING WELL. GT AUSCULTATED. PLACEMENT CHECKED VIA AUSCULTATION. IV ACCESS NOTES ON LASHAE MIDLINE WITH D5W RUNNING AT 70ML/HR. TOLERATING IV FLUIDS WELL. SOFT WRIST RESTRAINTS NOTED ON L WRIST. GOOD CIRCULATION NOTED ON EXT WITH RESTRAINTS. NO S/SX OF SKIN BREAKDOWN UNDER RESTRAINTS NOTED. SAFETY PRECAUTIONS IN PLACE. BED LOCKED AND IN LOW POSITION. SIDE RAILS UP. BED ALARM ON. WILL CONT TO MONITOR.
[2019-09-03] MEDS: PANTOPRAZOLE 40 MG VIAL IV SCH (08:23)
[2019-09-03] MEDS: ZINC SULFATE 220 MG CAPSULE GT SCH (08:23)
[2019-09-03] MEDS: ACIDOPHILUS/BULGARICUS 1 EACH TAB.CHEW GT SCH ×2 (08:23→17:09)
[2019-09-03] MEDS: HYDROCORTISONE SOD SUCCINATE 100 MG/2 ML VIAL IV SCH ×2 (08:23→12:04)
[2019-09-03] MEDS: CHOLECALCIFEROL 1,000 UNIT TABLET (VIT D3) GT SCH (08:24)
[2019-09-03] MEDS: ASCORBIC ACID 500 MG TABLET GT SCH (08:24)
[2019-09-03] MEDS: OXCARBAZEPINE 150 MG TABLET GT SCH ×2 (08:24→17:09)
[2019-09-03] MEDS: CALCIUM CARB 600MG /VIT D 1 EACH TABLET GT SCH (08:24)
[2019-09-03] MEDS: CITALOPRAM HYDROBROMIDE 10 MG TABLET GT SCH (08:24)
[2019-09-03] MEDS ORDERED: POTASSIUM CHLORIDE 20 MEQ TAB.PRT.SR PO SCH (10:00)
[2019-09-03] MEDS: FUROSEMIDE 40 MG/4 ML VIAL IV SCH ×3 (11:29→17:08)
[2019-09-03] MEDS: POTASSIUM CHLORIDE 20 MEQ POWDER PACKET GT SCH ×3 (11:29→12:11)
[2019-09-03] MEDS: LORAZEPAM INJ 2 MG/ML VIAL IVP PRN (15:56)
[2019-09-03] MEDS: MORPHINE SULFATE INJ 4 MG/ML DISP.SYRIN IV PRN (15:57)
[2019-09-03 16:00] VITALS: BP 154/87
--- NOTE | 2019-09-03 18:19 | NUR ---
MS RN CLOSING NOTES PT IN BED AWAKE ALERT AND ORIENTED X 1. PT IS CONFUSED AND APHASIC. PT ON O2 AT 4L/MIN SATURATING AT 99%. NO CARDIAC OR RESPIRATORY DISTRESS NOTED. NO S/S OF PAIN OR DISCOMFORT AT THIS TIME. PT IS BED BOUND W. ON GT FEEDING WITH GLUCERNA RUNNING AT 55ML/HR. TOLERATED GT FEEDING WELL THROUGHOUT THE SHIFT. GT SITE INTACT AND PATENT AND FLUSHING WELL. GT AUSCULTATED. PLACEMENT CHECKED VIA AUSCULTATION. IV ACCESS NOTES ON LASHAE MIDLINE. IV FLUIDS DISCONTINUED TODAY BY . PT ALSO HAS 3100 TOTAL URIINE OUTPUT DUE TO INCREASE IN DOSE/FREQUENCY OF LASIX. SOFT WRIST RESTRAINTS NOTED ON L WRIST. GOOD CIRCULATION NOTED ON EXT WITH RESTRAINTS. NO S/SX OF SKIN BREAKDOWN UNDER RESTRAINTS NOTED. SAFETY PRECAUTIONS IN PLACE. BED LOCKED AND IN LOW POSITION. SIDE RAILS UP. BED ALARM ON. WILL CONT TO MONITOR.
--- NOTE | 2019-09-03 19:15 | NUR ---
ms rachel initial notes received report from am nurse while checking the patient. he's awake and confused noted he still tried to pull out his lines and oxygen even his on left wrist restraint. no signs of any distress noted. right arm noted contracted and weak. he also on g-tube feeding Glucerna at 55ml/hr , no aspiration noted. pt tolerated well. fuller draining well with clear yellow output noted at this time. kept him warm and comfortable at all times. bed in low and lock in position with side rails x2 up. will continue monitoring.
[2019-09-03 20:00] VITALS: BP 152/87
[2019-09-03] MEDS: BACLOFEN (10 MG) 10 MG TABLET GT SCH (21:56)
--- NOTE | 2019-09-03 22:50 | NUR ---
ms wilson notes pt awake and still confused, no signs of any acute distress noted. bed bath done with the helped of aura Pisano , wound treatment done, picture also done per wound care protocol. reposition him for comfort. kept him warm and comfortable at all times. will continue monitoring.
--- NOTE | 2019-09-04 | NUR ---
ms supervisor fine grading notes pt resting but arouse to touch, no signs of any distress noted. G-tube feeding tolerated well no aspiration noted. kept him warm and comfortable at all times. will continue monitoring.
[2019-09-04] MEDS: IPRATROPIUM/ALBUTEROL INHALER IH SCH ×4 (00:17→16:39)
[2019-09-04 06:52] LABS: BASOPHILS % (AUTO) 0.2 % (0.0-2.0); EOSINOPHILS % (AUTO) 1.6 % (0.0-6.0); HEMATOCRIT 30 % (39-51); LYMPHOCYTES # (AUTO) 0.9 /CMM (0.8-4.8); LYMPHOCYTES % (AUTO) 8.2 % (20.0-44.0); MEAN CORPUSCULAR HGB CONC 33 g/dl (31.0-36.0); MEAN CORPUSCULAR VOLUME 92 fL (80-96); MONOCYTES # (AUTO) 1.2 /CMM (0.1-1.30); MONOCYTES % (AUTO) 10.3 % (2.0-12.0); NEUTROPHILS # (AUTO) 9.2 /CMM (1.8-8.9); NEUTROPHILS % (AUTO) 79.7 % (43.0-81.0); PLATELET COUNT (AUTO) 181 /CMM (150-450); RED BLOOD CELL COUNT(AUTO) 3.31 MIL/uL (4.5-6.0); WHITE BLOOD COUNT (AUTO) 11.5 K/uL (4.3-11.0)
--- NOTE | 2019-09-04 07:01 | NUR ---
ms youth specialist closing notes pt resting at this time after morning care done. not in any acute distress noted. stable sherly the night and slept well. all due meds given and all needs met. G-tube feeding tolerated well. no aspiration noted. Sloan draining well. kept him warm and comfortable at all times. On semi fowlers position with side rails x2 up and bed in low and lock in position. will endorse to am nurse for continuity of care.
[2019-09-04 07:26] LABS: CALCIUM, SERUM 7.9 mg/dL (8.5-10.1); CREATININE 1.1 mg/dL (0.6-1.3)
--- NOTE | 2019-09-04 07:30 | NUR ---
m/s chocolate refining roller: md visit seen by dr. alvarez at this time. per md continue hospitalization and for d'c planning tomorrow.
[2019-09-04 08:00] VITALS: BP 160/97
[2019-09-04] MEDS: CALCIUM CARB 600MG /VIT D 1 EACH TABLET GT SCH (08:50)
[2019-09-04] MEDS: CHOLECALCIFEROL 1,000 UNIT TABLET (VIT D3) GT SCH (08:50)
[2019-09-04] MEDS: ZINC SULFATE 220 MG CAPSULE GT SCH (08:50)
[2019-09-04] MEDS: CITALOPRAM HYDROBROMIDE 10 MG TABLET GT SCH (08:50)
[2019-09-04] MEDS: ACIDOPHILUS/BULGARICUS 1 EACH TAB.CHEW GT SCH ×2 (08:50→16:32)
[2019-09-04] MEDS: ASCORBIC ACID 500 MG TABLET GT SCH (08:50)
[2019-09-04] MEDS: OXCARBAZEPINE 150 MG TABLET GT SCH ×2 (08:50→16:32)
[2019-09-04] MEDS ORDERED: HYDROCORTISONE SOD SUCCINATE 100 MG/2 ML VIAL IV SCH (09:00)
[2019-09-04] MEDS: PANTOPRAZOLE 40 MG VIAL IV SCH (09:11)
[2019-09-04] MEDS: GLUCERNA 1.2 1,000 ML BOTTLE NG PRN (09:20)
--- NOTE | 2019-09-04 09:30 | NUR ---
m/s tea plantation worker: pulmo f/u seen by dr. farnsworth at this time.
[2019-09-04] MEDS ORDERED: POTASSIUM CHLORIDE 20 MEQ TAB.PRT.SR PO SCH (10:00)
--- NOTE | 2019-09-04 10:00 | NUR ---
m/s director community center: notes am care rendered. incontinent of bowel rendered. kept clean and dry. turned and repositioned. kept comfortable. hob elevated. remains lethargic. will continue to monitor.
[2019-09-04] MEDS: hydrALAZINE HCL 50 MG TABLET PO SCH ×2 (10:30→13:16)
--- NOTE | 2019-09-04 10:41 | NUR ---
m/s concierge: notes called and request facetime with pt. facetime done and updated plan of care.
[2019-09-04] MEDS: POTASSIUM CHLORIDE 20 MEQ POWDER PACKET NG SCH ×2 (11:18→12:24)
[2019-09-04] MEDS ORDERED: GLUCERNA 1.2 1,000 ML BOTTLE NG PRN (13:30)
[2019-09-04 14:00] VITALS: BP 133/84
--- NOTE | 2019-09-04 14:00 | NUR ---
m/s medical pathology teacher: notes facetime pt. pt is awake, but non-verbal. hob elevated. no distress noted. will continue to monitor.
[2019-09-04] MEDS ORDERED: METOCLOPRAMIDE HCL 10 MG TABLET GT PRN (15:30)
[2019-09-04 16:00] VITALS: BP 133/84
--- NOTE | 2019-09-04 16:00 | NUR ---
m/s instrumentation manager: notes turned and repositioned. kept comfortable. will continue to monitor.
[2019-09-04] MEDS ORDERED: GUAIFENESIN 300 MG/15 ML UDC GT PRN (16:30)
[2019-09-04] MEDS: hydrALAZINE HCL 50 MG TABLET GT SCH (16:33)
--- NOTE | 2019-09-04 19:28 | NUR ---
m/s assorter laundry: notes report given to yancy (rn) for continuity of care.
--- NOTE | 2019-09-04 19:48 | NUR ---
RN NOTES RECEIVED PATIENT IN STABLE CONDITION. NO SIGNS OF ACUTE DISTRESS. IV ACCESS INTACT AND PATENT. GT INTACT AND PATENT, VILLA CATHETER INTACT AND DRAINING TO A YELLOW URINE OUTPUT. SAFETY MEASURES IN PLACE, BILATERAL SOFT WRIST RESTRAINTS IN PLACE, ASSESSED AND CHECK FOR ADEQUATE CIRCULATION. BED IN LOW LOCKED POSITION. ASPIRATION PRECAUTION EMPHASIZED, ALL NEEDS ANTICIPATED. WILL CONTINUE TO MONITOR ACCORDINGLY.
[2019-09-04 20:00] VITALS: BP 144/92
[2019-09-04 20:50] VITALS: BP 144/92
[2019-09-04] MEDS: BACLOFEN (10 MG) 10 MG TABLET GT SCH (22:17)
--- NOTE | 2019-09-05 06:03 | NUR ---
RN NOTES ALL NEEDS ATTENDED AND MET, ABLE TO REST AND SLEPT AT INTERVALS, PATIENT IN STABLE CONDITION. NO SIGNS OF ACUTE DISTRESS. IV ACCESS INTACT AND PATENT. GT INTACT AND PATENT, VILLA CATHETER INTACT AND DRAINING TO A YELLOW URINE OUTPUT. SAFETY MEASURES IN PLACE, BILATERAL SOFT WRIST RESTRAINTS IN PLACE, ASSESSED AND CHECK FOR ADEQUATE CIRCULATION. BED IN LOW LOCKED POSITION. ASPIRATION PRECAUTION EMPHASIZED, ALL NEEDS ANTICIPATED. WILL ENDORSE TO AM NURSE FOR CONTINUITY OF CARE.
--- NOTE | 2019-09-05 07:30 | NUR ---
received pt. this am tube feeding in progress,no residuals.restraint in place.
[2019-09-05 08:00] VITALS: BP 159/88
[2019-09-05] MEDS: CITALOPRAM HYDROBROMIDE 10 MG TABLET GT SCH (09:25)
[2019-09-05] MEDS: OXCARBAZEPINE 150 MG TABLET GT SCH ×2 (09:25→17:00)
[2019-09-05] MEDS: ACETAMINOPHEN 650 MG/20.3 ML UDC GT PRN (09:25)
[2019-09-05] MEDS: CHOLECALCIFEROL 1,000 UNIT TABLET (VIT D3) GT SCH (09:25)
[2019-09-05] MEDS: ZINC SULFATE 220 MG CAPSULE GT SCH (09:25)
[2019-09-05] MEDS: CALCIUM CARB 600MG /VIT D 1 EACH TABLET GT SCH (09:25)
[2019-09-05] MEDS: ACIDOPHILUS/BULGARICUS 1 EACH TAB.CHEW GT SCH ×2 (09:25→17:00)
[2019-09-05] MEDS: ASCORBIC ACID 500 MG TABLET GT SCH (09:25)
[2019-09-05] MEDS: PANTOPRAZOLE 40 MG VIAL IV SCH (09:26)
[2019-09-05] MEDS: hydrALAZINE HCL 50 MG TABLET GT SCH ×3 (09:26→17:00)
[2019-09-05 11:29] LABS: BASOPHILS % (AUTO) 0.1 % (0.0-2.0); EOSINOPHILS % (AUTO) 1.5 % (0.0-6.0); HEMATOCRIT 31 % (39-51); HEMOGLOBIN 10.2 g/dL (13.5-17.5); LYMPHOCYTES # (AUTO) 0.8 /CMM (0.8-4.8); LYMPHOCYTES % (AUTO) 8.1 % (20.0-44.0); MEAN CORPUSCULAR HGB CONC 33 g/dl (31.0-36.0); MEAN CORPUSCULAR VOLUME 92 fL (80-96); MONOCYTES % (AUTO) 10.5 % (2.0-12.0); NEUTROPHILS # (AUTO) 7.8 /CMM (1.8-8.9); NEUTROPHILS % (AUTO) 79.8 % (43.0-81.0); PLATELET COUNT (AUTO) 187 /CMM (150-450); RED BLOOD CELL COUNT(AUTO) 3.36 MIL/uL (4.5-6.0); WHITE BLOOD COUNT (AUTO) 9.8 K/uL (4.3-11.0)
[2019-09-05 11:37] LABS: CALCIUM, SERUM 8.6 mg/dL (8.5-10.1); POTASSIUM 4.1 mmol/L (3.5-5.1)
[2019-09-05 11:42] LABS: ALBUMIN 1.9 g/dL (3.4-5.0); BILIRUBIN,TOTAL 0.3 mg/dL (0.2-1.0); MAGNESIUM 2.1 mg/dL (1.8-2.4); PHOSPHORUS 2.1 mg/dL (2.5-4.9); TOTAL PROTEIN, SERUM 6.2 g/dL (6.4-8.2)
[2019-09-05] MEDS: POTASSIUM CHLORIDE 20 MEQ TAB.PRT.SR PO SCH ×3 (11:54→16:02)
[2019-09-05] MEDS: FUROSEMIDE 40 MG/4 ML VIAL IV SCH ×2 (11:54→16:02)
[2019-09-05] MEDS: IPRATROPIUM/ALBUTEROL INHALER IH SCH ×2 (12:00→18:00)
[2019-09-05] MEDS ORDERED: NEUTRA PHOS 1 POWD.PACKET NG ONE (13:00)
[2019-09-05 16:00] VITALS: BP 133/91
--- NOTE | 2019-09-05 17:10 | NUR ---
rn in to rm to hang feeding bag to find g-tube out.broker in charge informed.
--- NOTE | 2019-09-05 17:15 | NUR ---
rn attempted insertion of fuller to replace feeding tube. met with resistance.
--- NOTE | 2019-09-05 17:30 | NUR ---
STONE MCPHERSON REGARDING G-TUBE BEING OUT.SATES HE WILLL BE IN.
--- NOTE | 2019-09-05 17:45 | NUR ---
call back from dr. landry states he will not be in. requests rn attempt.rn states not comfortable.md requested hospitalist.
--- NOTE | 2019-09-05 18:00 | NUR ---
potassium replacement given.
--- NOTE | 2019-09-05 18:00 | NUR ---
rn called hospitalist tania alford-sent up belinda silviculture teacher.belinda placed #[phone] f/c.
--- NOTE | 2019-09-05 19:00 | NUR ---
dr. landry here now,removed f/c and placed peg #16.checked for placement then decided to order a kub for accurate confirmation.endorsed to yancy bloom rn.
--- NOTE | 2019-09-05 19:12 | NUR ---
abd. binder in place.
[2019-09-05] MEDS ORDERED: DIATR MEGLU/DIATRIZOATE SODIUM 30 ML BOTTLE (GASTROGRAPHIN) ONE (19:13)
--- NOTE | 2019-09-05 19:15 | NUR ---
rn inserted 30 ml gastrograffin into g-tube.x-ray here.
--- NOTE | 2019-09-05 19:48 | NUR ---
RN NOTES RECEIVED PATIENT IN STABLE CONDITION. NO SIGNS OF ACUTE DISTRESS. IV ACCESS INTACT AND PATENT. NEW GT INSERTED. GT INTACT AND PATENT, KUB XRAY DONE FOR PROPER PLACEMENT. VILLA CATHETER INTACT AND DRAINING TO A YELLOW URINE OUTPUT. SAFETY MEASURES IN PLACE, BILATERAL SOFT WRIST RESTRAINTS IN PLACE, ASSESSED AND CHECK FOR ADEQUATE CIRCULATION. BED IN LOW LOCKED POSITION. ASPIRATION PRECAUTION EMPHASIZED, ALL NEEDS ANTICIPATED. WILL CONTINUE TO MONITOR ACCORDINGLY.
[2019-09-05 20:00] VITALS: BP 128/82
[2019-09-05] MEDS ORDERED: FUROSEMIDE 40 MG/4 ML VIAL IV SCH (20:00)
--- NOTE | 2019-09-05 20:10 | NUR ---
RN NOTES THIRD ( 3RD ) DOSE OF FUROSEMIDE ( LASIX ) 40 MG GIVEN, CALLED AND SPOKE TO THANH OF PHARMACY DEPT. TO ADJUST TIME TO BE GIVEN. FUROSEMIDE 40 MG IV 3 DOSES COMPLETED. PATIENT IS RESTING COMFORTABLY AT THIS TIME.
[2019-09-05] MEDS ORDERED: DIATR MEGLU/DIATRIZOATE SODIUM 30 ML BOTTLE (GASTROGRAPHIN) PO ONE (21:00)
--- NOTE | 2019-09-05 21:30 | NUR ---
RN NOTES PATIENT'S CALLED, ( [phone] ) UPDATED HER REGARDING PATIENT'S CONDITION. NO NEW CONCERN, VERBALIZED UNDERSTANDING.
--- NOTE | 2019-09-05 21:52 | NUR ---
RN NOTES CALLED AND SPOKE TO DR. LARIOS, INFORMING HIM THE KUD XRAY RESULT WITH PROPER PLACEMENT. TO RESUME GT FEEDING AT 55ML/HR X 24 HOURS. NO OTHER NEW ORDERS AT THIS TIME. WILL CONTINUE TO MONITOR PATIENT.
[2019-09-05] MEDS: BACLOFEN (10 MG) 10 MG TABLET GT SCH (22:03)
--- NOTE | 2019-09-06 06:45 | NUR ---
RN NOTES ALL NEEDS ATTENDED AND MET. ABLE TO REST AND SLEPT, NO FACIAL GRIMACING AT THIS TIME, NO SIGNS OF DISTRESS NOTED. GT INTACT AND PATENT, SECURED WITH ABDOMINAL BINDER, FEEDING TOLERATING WELL, SAFETY MEASURES IN PLACE, CALL LIGHT WITHIN EASY REACH, ASPIRATION PRECAUTION EMPHASIZE, REPOSITIONED FOR COMFORT. AFEBRILE THROUGHOUT THE SHIFT. KEEP CLEAN, DRY AND COMFORTABLE. WILL ENDORSE TO AM NURSE FOR CONTINUITY OF CARE.
[2019-09-06 07:31] LABS: BASOPHILS % (AUTO) 0.4 % (0.0-2.0); EOSINOPHILS % (AUTO) 1.1 % (0.0-6.0); HEMATOCRIT 33 % (39-51); HEMOGLOBIN 10.7 g/dL (13.5-17.5); LYMPHOCYTES # (AUTO) 0.9 /CMM (0.8-4.8); MEAN CORPUSCULAR HGB CONC 32 g/dl (31.0-36.0); MEAN CORPUSCULAR VOLUME 92 fL (80-96); MONOCYTES # (AUTO) 1.1 /CMM (0.1-1.30); MONOCYTES % (AUTO) 9.6 % (2.0-12.0); NEUTROPHILS % (AUTO) 80.9 % (43.0-81.0); PLATELET COUNT (AUTO) 190 /CMM (150-450); RED BLOOD CELL COUNT(AUTO) 3.58 MIL/uL (4.5-6.0); WHITE BLOOD COUNT (AUTO) 11.1 K/uL (4.3-11.0)
[2019-09-06 07:43] LABS: BILIRUBIN,TOTAL 0.3 mg/dL (0.2-1.0); CALCIUM, SERUM 8.4 mg/dL (8.5-10.1); MAGNESIUM 2.1 mg/dL (1.8-2.4); PHOSPHORUS 2.6 mg/dL (2.5-4.9); POTASSIUM 3.8 mmol/L (3.5-5.1); TOTAL PROTEIN, SERUM 6.9 g/dL (6.4-8.2)
[2019-09-06 08:00] VITALS: BP 157/100
[2019-09-06] MEDS ORDERED: PANTOPRAZOLE 40 MG/PACK PACK NG SCH (09:00)
[2019-09-06] MEDS: ACIDOPHILUS/BULGARICUS 1 EACH TAB.CHEW GT SCH ×2 (09:30→18:29)
[2019-09-06] MEDS: CALCIUM CARB 600MG /VIT D 1 EACH TABLET GT SCH (09:30)
[2019-09-06] MEDS: ACETAMINOPHEN 650 MG/20.3 ML UDC GT PRN (09:30)
[2019-09-06] MEDS: ZINC SULFATE 220 MG CAPSULE GT SCH (09:31)
[2019-09-06] MEDS: ASCORBIC ACID 500 MG TABLET GT SCH (09:31)
[2019-09-06] MEDS: OXCARBAZEPINE 150 MG TABLET GT SCH ×2 (09:31→18:29)
[2019-09-06] MEDS: CITALOPRAM HYDROBROMIDE 10 MG TABLET GT SCH (09:31)
[2019-09-06] MEDS: CHOLECALCIFEROL 1,000 UNIT TABLET (VIT D3) GT SCH (09:31)
[2019-09-06] MEDS: hydrALAZINE HCL 50 MG TABLET GT SCH ×3 (09:32→18:29)
--- NOTE | 2019-09-06 10:30 | NUR ---
informed of chest congestion.
[2019-09-06] MEDS: IPRATROPIUM/ALBUTEROL INHALER IH SCH ×2 (11:33→18:00)
[2019-09-06 16:00] VITALS: BP 154/92
--- NOTE | 2019-09-06 17:30 | NUR ---
pt. fighting nurse with attempt of photo taking so not taken.
[2019-09-06 18:29] VITALS: BP 154/92
--- NOTE | 2019-09-06 19:15 | NUR ---
report called to facility for dc.report to drivers,taken to facility via ambulance.midline removed.papers signed.
== END 2019-09-06 19:15 | DRG 871 ==
LOC: ER 22:06 → TELE1 08-28 00:22 → ICU 08-28 12:15 → MED 09-01 17:35
PROVIDERS: ADMIT Internal Medicine; ATTEND Internal Medicine
PROC: 5A1945Z Respiratory Ventilation, 24-96 Consecutive Hours (ICD-10-PCS; principal; 2019-08-28)
PROC: 0BH17EZ Insertion of Endotracheal Airway into Trachea, Via Natural or Artificial Opening (ICD-10-PCS; 2019-08-28)
PROC: 0BH17EZ Insertion of Endotracheal Airway into Trachea, Via Natural or Artificial Opening (ICD-10-PCS; 2019-08-30)
PROC: 05HY33Z Insertion of Infusion Device into Upper Vein, Percutaneous Approach (ICD-10-PCS; 2019-08-31)
DX: A41.9 Sepsis, unspecified organism (principal); J96.01 Acute respiratory failure with hypoxia; Z51.5 Encounter for palliative care; Z66 Do not resuscitate; N17.0 Acute kidney failure with tubular necrosis; E43 Unspecified severe protein-calorie malnutrition; J69.0 Pneumonitis due to inhalation of food and vomit; J96.21 Acute and chronic respiratory failure with hypoxia; I50.33 Acute on chronic diastolic (congestive) heart failure; J96.22 Acute and chronic respiratory failure with hypercapnia; G92 Toxic encephalopathy; J15.6 Pneumonia due to other Gram-negative bacteria; I13.0 Hypertensive heart and chronic kidney disease with heart failure and stage 1 through stage 4 chronic kidney disease, or unspecified chronic kidney disease; I69.351 Hemiplegia and hemiparesis following cerebral infarction affecting right dominant side; J90 Pleural effusion, not elsewhere classified; E87.0 Hyperosmolality and hypernatremia; D68.59 Other primary thrombophilia; J44.0 Chronic obstructive pulmonary disease with (acute) lower respiratory infection; J44.1 Chronic obstructive pulmonary disease with (acute) exacerbation; J98.11 Atelectasis; R47.01 Aphasia; E11.22 Type 2 diabetes mellitus with diabetic chronic kidney disease; I25.2 Old myocardial infarction; E78.5 Hyperlipidemia, unspecified; Z95.5 Presence of coronary angioplasty implant and graft; Z93.1 Gastrostomy status; I25.10 Atherosclerotic heart disease of native coronary artery without angina pectoris; Z91.030 Bee allergy status; Z79.51 Long term (current) use of inhaled steroids; Z79.899 Other long term (current) drug therapy; Z79.83 Long term (current) use of bisphosphonates; R13.10 Dysphagia, unspecified; D63.8 Anemia in other chronic diseases classified elsewhere; Z87.19 Personal history of other diseases of the digestive system; K21.0 Gastro-esophageal reflux disease with esophagitis; K44.9 Diaphragmatic hernia without obstruction or gangrene; K59.00 Constipation, unspecified; R23.9 Unspecified skin changes; Z74.09 Other reduced mobility; E27.8 Other specified disorders of adrenal gland; G40.909 Epilepsy, unspecified, not intractable, without status epilepticus; F41.9 Anxiety disorder, unspecified; F32.9 Major depressive disorder, single episode, unspecified; I70.0 Atherosclerosis of aorta; F01.50 Vascular dementia, unspecified severity, without behavioral disturbance, psychotic disturbance, mood disturbance, and anxiety; E86.0 Dehydration; M81.0 Age-related osteoporosis without current pathological fracture; Y95 Nosocomial condition; Z87.891 Personal history of nicotine dependence; Z86.14 Personal history of Methicillin resistant Staphylococcus aureus infection; N18.2 Chronic kidney disease, stage 2 (mild); D50.9 Iron deficiency anemia, unspecified; T38.0X5A Adverse effect of glucocorticoids and synthetic analogues, initial encounter; Y92.129 Unspecified place in nursing home as the place of occurrence of the external cause
CPT/HCPCS: 31720; 36415; 36600; 71045-TC; 74018; 80048-TC; 80053-TC; 80061-TC; 80202-TC; 81000-TC; 82533; 82550-TC; 82728-TC; 82803-TC; 82962-TC; 83540-TC; 83605-TC; 83615-TC; 83735-TC; 83880; 84100-TC; 84443-TC; 84484-TC; 85025-TC; 85378-TC; 85730-TC; 86140-TC; 87040-TC; 87070-TC; 87081-TC; 87086-TC; 93307-TC; 94002-TC; 94003-TC; 94762-TC; A6403; C9113; G0378; J0330; J0456; J0692; J1644; J1650; J1720; J1885; J1940; J2001; J2060; J2270; J2405; J2543; J2704; J2920; J3370; J3480; J3490; J7030; J7042; J7050; J7060; J7070; Q9963